=== PATIENT | female | born 1940 | race Caucasian/White ===

== ENCOUNTER → 2016-10-11 | Outpatient (CLI) | payer MEDICARE ==
--- NOTE | 2016-10-11 10:46 | US ---
EXAMINATION TYPE: US abdomen comp/pelvis limited DATE OF EXAM: 10/11/2016 10:13 AM COMPARISON: EXAMINATION TYPE: US abdomen comp/pelvis limited DATE OF EXAM: 10/11/2016 10:13 AM COMPARISON: NONE CLINICAL HISTORY: US. RLQ pain with hematuria EXAM MEASUREMENTS: Liver Length: 18.1 cm Gallbladder Wall: Surgically absent CBD: 0.3 cm Right Kidney: 10.5 x 4.6 x 5.8 cm Left Kidney: 10.3 x 5.3 x 5.4 cm Spleen 9.9 cm Post Void Volume: 18.9 ml ANATOMY: Pancreas: Poorly visualized. Liver: Portions visualized appear within normal limits Gallbladder: Surgically absent CBD: Appears within normal limits Right Kidney: Portions visualized appear within normal Left Kidney: Echogenic nonobstructing area possible kidney stone Spleen Portions visualized appear within normal limits Bladder: Appears within normal limits IVC: Portions visualized appear within normal Aorta: Portions visualized appear within normal Bilateral Jets Seen Yes, bilaterally Normal Post Void Residual (normal less than 50ml) 18.9 ml TECHNOLOGIST IMPRESSION: Liver measures upper limits of normal. The gallbladder is surgically absent . Echogenic area seen in the Left kidney probable kidney stone. IMPRESSION: 1. Status post cholecystectomy. 2. Probable nonobstructing, 5 mm left renal calculus. 3. Mild hepatomegaly. Normal Values: Liver Length: < 16cm wnl, 17-18cm upper limits, >18cm enlarged Renal Length = 9 - 12cm GB Wall: < 0.3cm CBD: < 0.6cm or < 1.0cm post cholecystectomy Bladder Wall: < 0.3cm
== END | disposition home or self-care (01) ==
LOC: RADUSWWP 09:04
PROVIDERS: ATTEND Family Medicine
DX: R16.0 Hepatomegaly, not elsewhere classified (principal); R31.9 Hematuria, unspecified; Z90.49 Acquired absence of other specified parts of digestive tract
CPT/HCPCS: 76700; 76857

== ENCOUNTER → 2016-11-15 | Outpatient (CLI) | payer MEDICARE ==
--- NOTE | 2016-11-16 11:11 | MM ---
Reason for exam: screening (asymptomatic). Last mammogram was performed 1 year and 2 months ago. History: Patient is postmenopausal and has history of breast cancer at age 68. Lumpectomy of the right breast, 2006. Radiation therapy of the right breast. Took tamoxifen for 5 years. Physical Findings: A clinical breast exam by your physician is recommended on an annual basis and results should be correlated with mammographic findings. MG 3D Screening Mammo W/Cad Bilateral CC and MLO view(s) were taken. Prior study comparison: September 15, 2015, mammogram, performed at [facility]. September 15, 2014, mammogram, performed at [facility]. There are scattered fibroglandular densities. Post surgical changes in the right breast lower inner quadrant. No significant changes when compared with prior studies. ASSESSMENT: Benign, BI-RAD 2 RECOMMENDATION: Routine screening mammogram of both breasts in 1 year.
== END | disposition home or self-care (01) ==
LOC: RADMAMWWP 12:33
PROVIDERS: ATTEND Family Medicine
DX: Z12.31 Encounter for screening mammogram for malignant neoplasm of breast (principal)
CPT/HCPCS: 77063; G0202

== ENCOUNTER → 2017-10-16 | Outpatient (CLI) | payer MEDICARE ==
--- NOTE | 2017-10-16 16:43 | CT ---
EXAMINATION TYPE: CT chest wo con DATE OF EXAM: 10/16/2017 COMPARISON: 09/19/2017 HISTORY: Abnormal findings of lung field CT DLP: 329.10 mGycm, Automated exposure control for dose reduction was used. CONTRAST: Performed injected with 0 mL of Omnipaque 350. TECHNIQUE: Axial images were obtained at 5 mm thick sections. Reconstructed images are reviewed on [employer] computer in the coronal plane. FINDINGS: Portion of the thyroid visualized is normal. There is a bilobed mass at the left apex measuring 1.4 x 0.8 cm in size. Series 4 image 13. Subtle gr oundglass opacities in the superior segment right lower lobe. Series 4 image 23. The subtle 0.3 cm no dule in the periphery of the left upper lobe is not as well-visualized on the current examination. Se yaritza 4 image 15. No enlarged mediastinal or hilar adenopathy is evident. The ascending aorta diameter at the level o f the main pulmonary artery is 3.3 cm. The main pulmonary artery diameter at the bifurcation is 2.3 cm. There is moderate coronary artery calcification. Limited CT sections are obtained through the upper abdomen. Abdomen is essentially unremarkable. IMPRESSIONS: 1. Bilobed nodular mass superior left upper lobe. Neoplasm is not excluded. Consider additional christin p with PET CT.
== END ==
LOC: RADCTMAIN 15:07
PROVIDERS: ATTEND Family Medicine
DX: R91.8 Other nonspecific abnormal finding of lung field (principal)
CPT/HCPCS: 71250

== ENCOUNTER → 2017-12-17 | Outpatient (CLI) | payer MEDICARE ==
--- NOTE | 2017-12-19 08:45 | MM ---
Reason for exam: screening (asymptomatic). Last mammogram was performed 1 year and 1 month ago. History: Patient is postmenopausal and has history of breast cancer at age 68. Lumpectomy of the right breast, 2006. Radiation therapy of the right breast. Took tamoxifen for 5 years. Physical Findings: A clinical breast exam by your physician is recommended on an annual basis and results should be correlated with mammographic findings. MG 3D Screening Mammo W/Cad Bilateral CC and MLO view(s) were taken. Prior study comparison: November 15, 2016, bilateral MG 3d screening mammo w/cad. September 15, 2015, mammogram, performed at [facility]. There are scattered fibroglandular densities. Post operative changes lower inner quadrant right breast. ASSESSMENT: Benign, BI-RAD 2 RECOMMENDATION: Routine screening mammogram of both breasts in 1 year.
== END | disposition home or self-care (01) ==
LOC: RADMAMWWP 12:26
PROVIDERS: ATTEND Family Medicine
DX: Z12.31 Encounter for screening mammogram for malignant neoplasm of breast (principal)
CPT/HCPCS: 77063; 77067

== ENCOUNTER → 2018-03-01 | Outpatient (CLI) | payer MEDICARE ==
[2018-03-01 10:19] LABS: Blood Urea Nitrogen 16 mg/dL (7-17)
--- NOTE | 2018-03-01 11:08 | CT ---
EXAMINATION TYPE: CT chest w con DATE OF EXAM: 03/01/2018 COMPARISON: 10/16/2017 CT chest dated 10/16/2017, low-dose CT thorax dated 09/19/2017 and PET/CT dated 11/10/2017 HISTORY: Solitary pulmonary nodule CT DLP: 374.70 mGycm. Automated Exposure Control for Dose Reduction was Utilized. TECHNIQUE: CT scan of the thorax is performed following with IV Contrast, patient injected with 100 ml mL of Isovue 300. FINDINGS: LUNGS: There is stability of the bilobed left upper lobe pulmonary nodule on series 4 image 14 measur ing 1.4 cm. This was demonstrated to be hypometabolic on the prior PET/CT of 11/10/2017. This is also o verall stable in size from the prior CT of 09/19/2017. A 3 mm solid pulmonary nodule in the anterior left upper lobe on series 4 image 15 is also stable. Additionally on the right the 2 mm pulmonary nod ule on image 19 is stable as is the groundglass opacity in the superior segment of the right upper lo be measuring approximately 6 mm on image 24. No new pulmonary nodules are identified. Probable area o f scarring or atelectasis is seen within the right middle lobe on series 4 image 41. The lungs are gr ossly clear, there is no concerning parenchymal mass or nodule identified. There is no pleural effu melissa or pneumothorax seen. The tracheobronchial tree is patent. MEDIASTINUM: There are no greater than 1 cm hilar or mediastinal lymph nodes. Moderate three-vessel c oronary calcifications are present. No pericardial effusion is seen. OTHER: There is diffuse low attenuation of the hepatic parenchyma most commonly related to hepatic st eatosis. Intrahepatic biliary ductal dilatation is seen although the gallbladder is not visualized an d may be surgically absent accounting for this finding. IMPRESSION: Stability of the nonhypermetabolic (prior PET/CT) bilateral pulmonary nodules in comparis on to exams dating back to 09/19/2017. Continued follow-up is recommended to ensure stability given t he 1.4 cm size of the left upper lobe pulmonary nodule. Follow-up CT is recommended in 6 months. No n ew pulmonary nodules or mediastinal adenopathy.
== END | disposition home or self-care (01) ==
LOC: RADCTMAIN 09:34
PROVIDERS: ATTEND Internal Medicine Critical Care Medicine
DX: R91.8 Other nonspecific abnormal finding of lung field (principal)
CPT/HCPCS: 82565; 84520; 71260; 36415; Q9967

== ENCOUNTER 2018-06-25 19:19 | Emergency (ER) | payer OTHER, MEDICARE ==
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
[2018-06-25 20:44] LABS: Partial Thromboplastin Time 23.5 sec (22.0-30.0); Prothrombin Time 10.2 sec (9.0-12.0)
[2018-06-25 20:48] LABS: Basophils % (A) 1 %; Eosinophils # (A) 0.1 k/uL (0-0.7); Eosinophils % (A) 3 %; HCT 37.2 % (34.0-46.0); HGB 12.5 gm/dL (11.4-16.0); Lymphocytes # (A) 2.1 k/uL (1.0-4.8); Lymphocytes % (A) 44 %; MCH 32.5 pg (25.0-35.0); MCHC 33.7 g/dL (31.0-37.0); MCV 96.5 fL (80.0-100.0); Mean Platelet Volume 7.1; Monocytes # (A) 0.3 k/uL (0-1.0); Monocytes % (A) 6 %; Neutrophils % (A) 43 %; Platelet Count 159 k/uL (150-450); RBC 3.85 m/uL (3.80-5.40); RDW 12.9 % (11.5-15.5); WBC 4.7 k/uL (3.8-10.6)
[2018-06-25 20:49] LABS: AST 98 U/L (14-36); Albumin 4.2 g/dL (3.5-5.0); Blood Urea Nitrogen 14 mg/dL (7-17); Creatine Kinase 103 U/L (30-135); Glucose 122 mg/dL (74-99); Magnesium 1.7 mg/dL (1.6-2.3); Total Bilirubin 0.3 mg/dL (0.2-1.3); Total Protein 7.7 g/dL (6.3-8.2)
[2018-06-25 21:00] LABS: ALT 70 U/L (9-52); Alkaline Phosphatase 34 U/L (38-126); Anion Gap 9 mmol/L; Calcium 9.8 mg/dL (8.4-10.2); Carbon Dioxide 29 mmol/L (22-30); Chloride 105 mmol/L (98-107); Potassium 3.9 mmol/L (3.5-5.1); Sodium 143 mmol/L (137-145)
[2018-06-25 21:02] LABS: Creatine Kinase MB 1.1 ng/mL (0.0-2.4); Troponin I <0.012 ng/mL (0.000-0.034)
[2018-06-25 21:14] VITALS: RESP 20
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
[2018-06-25 22:11] VITALS: BP 138/62; PULSE 82; TEMP 98.3
== END 2018-06-25 22:10 | disposition home or self-care (01) ==
LOC: EC 19:19
DX: S20.02XA Contusion of left breast, initial encounter (principal); S20.212A Contusion of left front wall of thorax, initial encounter; R10.11 Right upper quadrant pain; R11.0 Nausea; E11.9 Type 2 diabetes mellitus without complications; Z87.891 Personal history of nicotine dependence; Z90.49 Acquired absence of other specified parts of digestive tract; Z90.710 Acquired absence of both cervix and uterus; Z98.890 Other specified postprocedural states; Z79.84 Long term (current) use of oral hypoglycemic drugs; Z79.899 Other long term (current) drug therapy; Z88.1 Allergy status to other antibiotic agents; Z88.5 Allergy status to narcotic agent; V43.62XA Car passenger injured in collision with other type car in traffic accident, initial encounter; Y92.410 Unspecified street and highway as the place of occurrence of the external cause
CPT/HCPCS: 36415; 93005; 80053; 82550; 82553; 83735; 84484; 85025; 85610; 85730; 71046; 71260; 74177; 99284; Q9967

== ENCOUNTER 2018-10-04 07:04 | Day surgery (SDC) | payer MEDICARE ==
[2018-10-02 15:37] VITALS: BMI 32.9
[~2018-10-04 07:04] MED LIST: LACTATED RINGERS 1,000 ML IV SCH; LIDOCAINE 1% 20 ML VIAL (10MG/ML) FOR IV START INTRADERMA PRN
[2018-10-04 07:19] VITALS: RESP 18; TEMP 98.2
[2018-10-04 07:39] LABS: Glucose,Whole Blood 139 mg/dL (75-99)
[2018-10-04] MEDS ORDERED: PROPOFOL 10 MG/ML 20 ML VIAL IV ONE (07:58)
--- NOTE | 2018-10-04 08:21 | P.PCN ---
Date of Procedure: 10/04/18 Procedure(s) Performed: BRIEF HISTORY: Patient is a 78-year-old pleasant white female, scheduled for an elective colonoscopy as a part of variation of prior history of colon polyps. Last endoscopy was 4 years ago. PROCEDURE PERFORMED: Colonoscopy with snare polypectomy. PREOPERATIVE DIAGNOSIS: History of colon polyps. IV sedation per Anesthesia. PROCEDURE: After informed consent was obtained, the patient, was brought into the endoscopy unit. IV sedation was administered by Anesthesia under continuous monitoring. Digital rectal examination was normal. Initially the Olympus CF- 160 flexible video colonoscope was then inserted in the rectum, gradually advanced into the cecum without any difficulty. Careful examination was performed as the scope was gradually being withdrawn. Ileocecal valve and the appendiceal orifice were visualized and appeared normal. Prep was excellent. Mucosa of the cecum, appeared normal. In the ascending colon there was a 5-6 mm sessile polyp that was removed by snare polypectomy. In the proximal transverse colon there was a 1 cm polyp removed by snare polypectomy. Rest of the ascending colon, transverse colon, descending colon, sigmoid colon, and rectum appeared normal. Scattered sigmoid diverticulosis seen. Retroflexion was performed in the rectum and no lesions were seen. The patient tolerated the procedure well. IMPRESSION: 5-6 mm sessile colon polyp serous was snare polypectomy 1 cm proximal transverse colon polyp status post polypectomy Scattered sigmoid diverticulosis RECOMMENDATIONS: Findings of this examination were discussed with the patient as well as her family. She was advised to follow with the biopsy results. If the biopsy shows adenoma, she can have a repeat colonoscopy in the.
[2018-10-04 08:39] VITALS: BP 150/79; PULSE 78
== END 2018-10-04 09:00 | disposition home or self-care (01) ==
LOC: ORWHC2ENDO 07:04
PROVIDERS: ATTEND Internal Medicine Gastroenterology
DX: Z12.11 Encounter for screening for malignant neoplasm of colon (principal); D12.2 Benign neoplasm of ascending colon; D12.3 Benign neoplasm of transverse colon; K57.30 Diverticulosis of large intestine without perforation or abscess without bleeding; K21.9 Gastro-esophageal reflux disease without esophagitis; E11.9 Type 2 diabetes mellitus without complications; E07.9 Disorder of thyroid, unspecified; Z86.010 Personal history of colon polyps; Z88.5 Allergy status to narcotic agent; Z88.1 Allergy status to other antibiotic agents; Z91.048 Other nonmedicinal substance allergy status; Z79.890 Hormone replacement therapy; Z79.899 Other long term (current) drug therapy; Z79.84 Long term (current) use of oral hypoglycemic drugs
CPT/HCPCS: 88305; 45385; J2704

== ENCOUNTER → 2018-12-13 | Outpatient (CLI) | payer MEDICARE ==
--- NOTE | 2018-12-13 11:45 | CT ---
EXAMINATION TYPE: CT chest w con DATE OF EXAM: 12/13/2018 COMPARISON: 06/25/2018 on 03/01/2018 HISTORY: Follow up lung nodules. CT DLP: 382.7 mGycm. Automated Exposure Control for Dose Reduction was Utilized. TECHNIQUE: CT scan of the thorax is performed following with IV Contrast, patient injected with 100 mL of Isovue M300. FINDINGS: LUNGS: There is similar size of the approximately 1.5 x 1.0 cm bilobed left upper lobe pulmonary nodu le on series 4 image 16 in comparison the prior of 06/25/2018. This was also demonstrated to be stable on the exam of 03/01/2018 and hypometabolic on a prior PET/CT of 11/10/2017. This is similar size datin g back to 09/19/2017. A 3 mm subcentimeter solid pulmonary nodule on series 4 image 19 is also stable. Round glass opacity in the superior segment of the right lower lobe is unchanged on series 4 image 24. 2 to 3 mm right up per lobe pulmonary nodule on image 20 is unchanged. There is a new 3 mm pulmonary nodule within the right lower lobe along the interlobar fissure on seri es 4 image 36 with surrounding groundglass density. No additional new nodules are seen. No focal consolidation, pleural effusion or pneumothorax. The tra cheobronchial tree is patent. MEDIASTINUM: There are no greater than 1 cm hilar or mediastinal lymph nodes. No pericardial effusi on is seen. Severe coronary artery calcifications are present. OTHER: Hepatic steatosis is demonstrated in the upper abdomen as well as hepatomegaly. Common bile du ct dilatation may relate to surgical absence of the gallbladder. This is unchanged from the prior. Pu nctate calcification along the right adrenal gland is likely from prior injury. No associated mass. M ultilevel moderate degenerative changes of the spine are noted. IMPRESSION: 1. New right lower lobe pulmonary nodule with the solid component measuring only 3 mm. This is too sm all for PET CT or biopsy and therefore short-term follow-up is recommended in 3 months given the surr ounding groundglass opacity. 2. Left upper lobe bilobed PET hypometabolic approximately 1.5 cm pulmonary nodule is similar in size on multiple exams dating back to 09/19/2017 and therefore favored to be benign however continued fol low-up is recommended to ensure long-term stability. 3. Stability of the additional subcentimeter pulmonary nodules and redemonstration of hepatic steatos is.
== END | disposition home or self-care (01) ==
LOC: RADCTMAIN 10:19
PROVIDERS: ATTEND Family Medicine
DX: R91.8 Other nonspecific abnormal finding of lung field (principal)
CPT/HCPCS: 71260; Q9967

== ENCOUNTER → 2019-03-17 | Outpatient (CLI) | payer MEDICARE ==
--- NOTE | 2019-03-18 13:42 | MM ---
Reason for exam: screening (asymptomatic). Last mammogram was performed 1 year and 3 months ago. History: Patient is postmenopausal and has history of breast cancer at age 68. Lumpectomy of the right breast, 2006. Radiation therapy of the right breast. Took tamoxifen for 5 years. Physical Findings: A clinical breast exam by your physician is recommended on an annual basis and results should be correlated with mammographic findings. MG 3D Screening Mammo W/Cad Bilateral CC and MLO view(s) were taken. Prior study comparison: December 17, 2017, bilateral MG 3d screening mammo w/cad. November 15, 2016, bilateral MG 3d screening mammo w/cad. There are scattered fibroglandular densities. Benign appearing bilateral calcifications. No suspicious abnormality. Post surgical change on the right. No significant changes when compared with prior studies. ASSESSMENT: Benign, BI-RAD 2 RECOMMENDATION: Routine screening mammogram of both breasts in 1 year.
== END | disposition home or self-care (01) ==
LOC: RADMAMWWP 10:54
PROVIDERS: ATTEND Family Medicine
DX: Z12.31 Encounter for screening mammogram for malignant neoplasm of breast (principal)
CPT/HCPCS: 77063; 77067

== ENCOUNTER → 2019-03-17 | Outpatient (CLI) | payer MEDICARE ==
--- NOTE | 2019-03-17 11:41 | CT ---
EXAMINATION TYPE: CT chest wo con DATE OF EXAM: 03/17/2019 COMPARISON: CT chest dated the HISTORY: Multiple lung nodules CT DLP: 374.6 mGycm. Automated Exposure Control for Dose Reduction was Utilized. TECHNIQUE: CT scan of the thorax is performed without IV contrast. FINDINGS: LUNGS: The lungs are clear there is no evidence of pneumothorax or pleural effusion. No focal pneumonia. Leida ear changes involving the superior segment of the right lower lobe appears to be related to scar or a telectasis. Nodules: Stable 1.5 x 1 cm bilobed left upper lobe pulmonary nodule. Stable 3 mm pulmonary nodule right lower lobe. Previously noted 3 mm right lower lobe pulmonary nodule along the interlobar fissure not definitively seen on today's exam. MEDIASTINUM: Lack of IV contrast is noted to limit evaluation for mediastinal and especially hilar ad enopathy. There are no definitive greater than 1 cm hilar or mediastinal lymph nodes. No cardiomega ly or pericardial effusion is seen. Atherosclerotic change of the aorta and dense coronary artery adan cified cage noted. OTHER: Hypertrophic and degenerative change of the spine noted. Correlate for hepatic steatosis. IMPRESSION: 1. Stable bilateral pulmonary nodules unchanged from the prior exam. 2. 3 mm nodule in the right lower lobe near the interlobar fissure is not seen on today's exam 3. Dense coronary artery calcification correlate clinically.
== END | disposition home or self-care (01) ==
LOC: RADCTMAIN 10:30
PROVIDERS: ATTEND Nurse Practitioner Adult Health
DX: I25.10 Atherosclerotic heart disease of native coronary artery without angina pectoris (principal); R91.8 Other nonspecific abnormal finding of lung field
CPT/HCPCS: 71250

== ENCOUNTER → 2020-06-01 | Outpatient (CLI) | payer MEDICARE ==
--- NOTE | 2020-06-02 09:25 | MM ---
Reason for exam: screening (asymptomatic). Last mammogram was performed 1 year and 2 months ago. History: Patient is postmenopausal and has history of breast cancer at age 68. Lumpectomy of the right breast, 2006. Radiation therapy of the right breast. Took tamoxifen for 5 years. Physical Findings: A clinical breast exam by your physician is recommended on an annual basis and results should be correlated with mammographic findings. MG 3D Screening Mammo W/Cad Bilateral CC and MLO view(s) were taken. Prior study comparison: March 17, 2019, bilateral MG 3d screening mammo w/cad. December 17, 2017, bilateral MG 3d screening mammo w/cad. The breast tissue is heterogeneously dense. This may lower the sensitivity of mammography. Stable lumpectomy changes right breast. No significant changes when compared with prior studies. ASSESSMENT: Benign, BI-RAD 2 RECOMMENDATION: Routine screening mammogram of both breasts in 1 year.
== END | disposition home or self-care (01) ==
LOC: RADMAMWWP 11:14
PROVIDERS: ATTEND Family Medicine
DX: Z12.31 Encounter for screening mammogram for malignant neoplasm of breast (principal)
CPT/HCPCS: 77063; 77067

== ENCOUNTER → 2020-07-28 | Outpatient (CLI) | payer MEDICARE ==
--- NOTE | 2020-07-28 08:07 | CT ---
EXAMINATION TYPE: CT chest wo con DATE OF EXAM: 07/28/2020 COMPARISON: Prior chest CT March 17, 2019 and older CTs. PET/CT November 10, 2017 HISTORY: Lung Nodules CT DLP: 320.4 mGycm. Automated Exposure Control for Dose Reduction was Utilized. TECHNIQUE: CT scan of the thorax is performed without IV contrast. FINDINGS: LUNGS: Low dense lobulated left upper lobe nodule appears larger on current study measuring 2.0 x 1.1 cm axial image 12 versus prior exams. Stable 9 mm focus of groundglass opacity superior right lower lobe axial image 29 from multiple prior studies. No new greater than 4 mm pulmonary nodules or masses . No pleural effusion or pneumothorax seen. MEDIASTINUM: Lack of IV contrast is noted to limit evaluation for mediastinal and especially hilar ad enopathy. There are no definitive new greater than 1 cm hilar or mediastinal lymph nodes. No cardio megaly or pericardial effusion is seen. Moderate to severe coronary artery calcification redemonstrat ed. Calcification level of the aortic valve and root redemonstrated. Bovine type arch again seen whic h is normal variant. Moderate calcified plaque descending aorta extending into abdominal aorta redemo nstrated. OTHER: Cholecystectomy clips redemonstrated. Visualized liver hypodense relative to spleen consistent with diffuse fatty infiltration. Moderate to severe multilevel spurring of the thoracic spine. Stabl e suspected scarring medially right breast near axial image 25. IMPRESSION: Enlarging 2.0 x 1.1 cm left upper lobe bilobed or lobulated nodule. Advise repeat PET/CT to further evaluate.
== END | disposition home or self-care (01) ==
LOC: RADCTMAIN 06:49
PROVIDERS: ATTEND Family Medicine
DX: R91.8 Other nonspecific abnormal finding of lung field (principal)
CPT/HCPCS: 71250

== ENCOUNTER → 2020-08-27 | Outpatient (CLI) | payer MEDICARE ==
--- NOTE | 2020-08-28 09:35 | PE ---
Nuclear medicine PET/CT HISTORY: Pulmonary nodule, right breast carcinoma subsequent Patient received 13.4 mCi F-18 FDG intravenously in delayed scanning was performed from the skull bas e to the mid thighs. Localization and attenuation correction CT scan was performed. Correlation to prior nuclear medicine PET/CT 11/10/2017, CT scan 07/28/2020 and 06/25/2018 Chest and neck: The left upper lobe hourglass configuration soft tissue mass which is demonstrated so me interval growth is again noted. No suspicious uptake is identified however. There is no mediastina l, axillar, or hilar adenopathy. There are coronary artery calcifications present. No pleural or ratur cardial effusion. ABDOMEN: No suspicious uptake. There is no evident liver mass or suspicious uptake. No retroperitonea l adenopathy. There is no ascites. Bowel uptake is felt likely to be physiologic. Osseous structures show no suspicious uptake. IMPRESSION: There is some slight interval growth of patient's left upper lobe lung mass. No suspiciou s uptake however.
== END | disposition home or self-care (01) ==
LOC: RADPETMAIN 09:57
PROVIDERS: ATTEND Family Medicine
DX: R91.8 Other nonspecific abnormal finding of lung field (principal)
CPT/HCPCS: 78815; A9552

== ENCOUNTER → 2021-06-29 | Outpatient (CLI) | payer MEDICARE ==
--- NOTE | 2021-06-29 15:28 | CT ---
EXAMINATION TYPE: CT abdomen pelvis wo con DATE OF EXAM: 06/29/2021 HISTORY: Diarrhea CT DLP: 818 mGycm. Automated Exposure Control for Dose Reduction was Utilized. TECHNIQUE: CT scan of the abdomen and pelvis is performed without oral or IV contrast. COMPARISON: CT June 25, 2018. PET CT August 27, 2020. FINDINGS: Within the limitations of a non-contrast study, the following observations are made. LUNG BASES: No significant abnormality is appreciated. LIVER/GB: Stable small calcification region of azra hepatis axial image 20. Heterogeneity of the wilder er was slightly lobulated peripheral contour raising concern for possible underlying cirrhosis, corre late clinically. Gallbladder surgically absent. No biliary dilatation noted currently. Liver overall normal in size. No ascites noted. PANCREAS: No significant abnormality is seen. SPLEEN: No significant abnormality is seen. ADRENALS: Small calcification in region of right adrenal gland redemonstrated. KIDNEYS: No renal stones or hydronephrosis. Exophytic 1.0 cm thin-walled cyst right kidney laterally midpole level axial image 31 redemonstrated. BOWEL: Diverticula in the left and sigmoid colon. No CT evidence for acute diverticulitis. No suspici ous small or large bowel dilatation GENITAL ORGANS: Uterus surgically absent. LYMPH NODES: No greater than 1cm abdominal or pelvic lymph nodes are appreciated. OSSEOUS STRUCTURES: Moderate 2 borderline severe axial joint space loss both hips. Swzx-[id number] m ultilevel spurring in the thoracolumbar spine. OTHER: Moderate to severe calcified plaque of the aorta extends into branch vessels. IMPRESSION: The source of patient's diarrhea not identified on noncontrast CT. Distal colonic diverti culosis without CT evidence for acute diverticulitis. Possible cirrhosis of liver, correlate clinical ly.
== END | disposition home or self-care (01) ==
LOC: RADCTMAIN 14:46
PROVIDERS: ATTEND Nurse Practitioner Adult Health
DX: K57.30 Diverticulosis of large intestine without perforation or abscess without bleeding (principal)
CPT/HCPCS: 74176

== ENCOUNTER → 2021-07-07 | Outpatient (CLI) | payer MEDICARE ==
--- NOTE | 2021-07-08 07:52 | ECHOF ---
Referral Reason:R01.1 Cardiac murmur MEASUREMENTS -------- HEIGHT: 157.5 cm WEIGHT: 76.2 kg BP: RVIDd: 2.5 cm (< 3.3) IVSd: 1.3 cm (0.6 - 1.1) LVIDd: 3.3 cm (3.9 - 5.3) LVPWd: 1.3 cm (0.6 - 1.1) IVSs: 1.5 cm LVIDs: 1.7 cm LVPWs: 2.0 cm LAESV Index (A-L): 13.92 ml/m Ao Diam: 2.5 cm (2.0 - 3.7) AV Cusp: 1.1 cm (1.5 - 2.6) LA Diam: 3.2 cm (2.7 - 3.8) MV EXCURSION: 13.362 mm (> 18.000) MV EF SLOPE: 30 mm/s (70 - 150) EPSS: 0.2 cm MV E Monroe: 0.64 m/s MV DecT: 280 ms MV A Monroe: 1.08 m/s MV E/A Ratio: 0.59 AV maxP.25 mmHg AV meanP.95 mmHg RAP: 5.00 mmHg RVSP: 25.06 mmHg FINDINGS -------- Sinus rhythm. This was a technically adequate study. The left ventricular size is normal. There is mild concentric left ventricular hypertrophy. Overa ll left ventricular systolic function is normal with, an EF between 55 - 60 %. The right ventricle is normal in size. Normal LA size by volume 22+/-6 ml/m2. The right atrial size is normal. Interatrial and interventricular septum intact. There is no evidence of aortic regurgitation. There is mild aortic stenosis present. Peak/mean gr adient across the Aortic Valve is 23.25mmHg / 14.95mmHg. There is trace mitral regurgitation. Mild tricuspid regurgitation present. There is no evidence of pulmonary hypertension. The right v entricular systolic pressure, as measured by Doppler, is 25.06mmHg. There is no pulmonic regurgitation present. The aortic root size is normal. IVC Not well visulized. There is no pericardial effusion. CONCLUSIONS -------- 1. The left ventricular size is normal. 2. There is mild concentric left ventricular hypertrophy. 3. Overall left ventricular systolic function is normal with, an EF between 55 - 60 %. 4. There is mild aortic stenosis present. 5. Peak/mean gradient across the Aortic Valve is 23.25mmHg / 14.95mmHg. 6. There is trace mitral regurgitation. 7. Mild tricuspid regurgitation present. DUST HANDLER: Maryellen Posada RDCS
== END | disposition home or self-care (01) ==
LOC: RADECHMAIN 14:33
PROVIDERS: ATTEND Family Medicine
DX: I08.3 Combined rheumatic disorders of mitral, aortic and tricuspid valves (principal)
CPT/HCPCS: 93306

== ENCOUNTER → 2021-07-26 | Outpatient (CLI) | payer MEDICARE ==
--- NOTE | 2021-07-27 10:23 | MM ---
Reason for exam: screening (asymptomatic). Last mammogram was performed 1 year and 2 months ago. History: Patient is postmenopausal and has history of breast cancer at age 68. Lumpectomy of the right breast, 2006. Radiation therapy of the right breast. Took tamoxifen for 5 years. Physical Findings: A clinical breast exam by your physician is recommended on an annual basis and results should be correlated with mammographic findings. MG 3D Screening Mammo W/Cad Bilateral CC and MLO view(s) were taken. Prior study comparison: June 01, 2020, bilateral MG 3d screening mammo w/cad. March 17, 2019, bilateral MG 3d screening mammo w/cad. There are scattered fibroglandular densities. Benign appearing bilateral calcifications. There is chronic nodularity in the left breast. No significant changes when compared with prior studies. ASSESSMENT: Benign, BI-RAD 2 RECOMMENDATION: Routine screening mammogram of both breasts in 1 year.
== END | disposition home or self-care (01) ==
LOC: RADMAMWWP 10:36
PROVIDERS: ATTEND Family Medicine
DX: Z12.31 Encounter for screening mammogram for malignant neoplasm of breast (principal)
CPT/HCPCS: 77063; 77067

== ENCOUNTER → 2022-02-03 | Outpatient (CLI) | payer MEDICARE ==
--- NOTE | 2022-02-03 10:34 | US ---
EXAMINATION TYPE: US liver DATE OF EXAM: 02/03/2022 COMPARISON: CT abdomen and pelvis June 29, 2021 CLINICAL HISTORY: K74.60 UNSPECIFIED CIRRHOSIS OF LIVER. cirrhosis gallbladder removed. EXAM MEASUREMENTS: Liver Length: 16.7 cm Gallbladder Wall: Surgically absent cm CBD: 1.2 cm Right Kidney: 10.1 x 4.1 x 4.5 cm Pancreas: Duct visualized Liver: Increased attenuation Gallbladder: Surgically absent Evidence for sonographic Lopez's sign: No CBD: Dilated Right Kidney: Exophytic simple appearing cyst 1.5 x .9 x 1.3 cm. Visualized liver is heterogeneously hyperechoic but normal in size. Evaluation for focal masses is moore boptimal due to the heterogeneity. No surrounding ascites. Gallbladder surgically absent. There is ne w mild extrahepatic biliary dilatation from prior CT of the azra hepatis IMPRESSION: Underlying hepatocellular disease is confirmed or suspected when correlating with CT. Pos sible new mild extra hepatic biliary dilatation. Consider follow-up ERCP or MRCP imaging based on wilder er lab values and clinical correlation.
== END | disposition home or self-care (01) ==
LOC: RADUSWWP 09:31
PROVIDERS: ATTEND Internal Medicine Gastroenterology
DX: K74.60 Unspecified cirrhosis of liver (principal)
CPT/HCPCS: 76705

== ENCOUNTER 2022-02-28 06:51 | Day surgery (SDC) | payer MEDICARE ==
[~2022-02-28 06:51] MED LIST changes: +LIDOCAINE 1% (10MG/ML) FOR IV START INTRADERMA PRN; -LIDOCAINE 1% 20 ML VIAL (10MG/ML) FOR IV START INTRADERMA PRN
[2022-02-28 07:50] LABS: Glucose,Whole Blood 184 mg/dL (75-99)
[2022-02-28 07:58] VITALS: TEMP 98.1
[2022-02-28] MEDS ORDERED: PROPOFOL 10 MG/ML 20 ML VIAL IV ONE (08:09)
--- NOTE | 2022-02-28 08:35 | P.PCN ---
Date of Procedure: 02/28/22 Procedure(s) Performed: BRIEF HISTORY: Patient is a 81-year-old pleasant female scheduled for an elective colonoscopy as a part of screening for colon cancer and family history of colon cancer. Her mother and sister with was diagnosed with colon cancer at age 60 and 80 respectively. PROCEDURE PERFORMED: Colonoscopy with snare polypectomy. PREOPERATIVE DIAGNOSIS: Screening for colon cancer and family history of colon cancer. IV sedation per Anesthesia. PROCEDURE: After informed consent was obtained, the patient, was brought into the endoscopy unit. IV sedation was administered by Anesthesia under continuous monitoring. Digital rectal examination was normal. Initially the Olympus CF-160 flexible video colonoscope was then inserted in the rectum, gradually advanced into the cecum without any difficulty. Careful examination was performed as the scope was gradually being withdrawn. Ileocecal valve and the appendiceal orifice were visualized and appeared normal. Prep was excellent. Mucosa of the cecum, appeared normal. Ascending colon there was a 5 mm polyp removed by snare polypectomy. Rest of the ascending colon, transverse colon, appeared normal. The descending colon there was a 6 mm polyp removed by snare polypectomy. Rest of the descending colon, sigmoid colon, and rectum appeared normal. Scattered left sided diverticulosis seen. Retroflexion was performed in the rectum and no lesions were seen. The patient tolerated the procedure well. IMPRESSION: 5 mm ascending colon polyp status post polypectomy 6 mm reasoning colon polyp status post snare polypectomy and scattered sigmoid diverticula Sigmoid Diverticulosis RECOMMENDATIONS: Findings of this examination were discussed with the patientas well as her family. She was advised to follow with the biopsy results. If the biopsies adenoma she can have a repeat colonoscopy in 3 years based on her overall medical condition].
[2022-02-28 08:53] VITALS: BP 144/80; PULSE 76; RESP 16
== END 2022-02-28 09:15 | disposition home or self-care (01) ==
LOC: ORWHC2ENDO 06:51
PROVIDERS: ATTEND Internal Medicine Gastroenterology
DX: Z12.11 Encounter for screening for malignant neoplasm of colon (principal); K57.30 Diverticulosis of large intestine without perforation or abscess without bleeding; D12.4 Benign neoplasm of descending colon; Z80.0 Family history of malignant neoplasm of digestive organs
CPT/HCPCS: 45385; 88305; J2704

== ENCOUNTER → 2022-08-08 | Outpatient (CLI) | payer MEDICARE ==
--- NOTE | 2022-08-09 08:16 | MM ---
Reason for Exam: Screening (asymptomatic). Last mammogram was performed 1 year(s) and 1 month(s) ago. Patient History: Menarche at age 10. First Full-Term at age 21. Left ovary removed at age 52. Right ovary removed at age 52. Hysterectomy at age 52. Postmenopausal. Breast cancer, right, age 68. Patient used Tamoxifen for 5 years. 2006, Lumpectomy on the Right side. Radiation Therapy, right. Prior Study Comparison: 03/17/2019 Bilateral Screening Mammogram, [facility]. 06/01/2020 Bilateral Screening Mammogram, [facility]. 07/26/2021 Bilateral Screening Mammogram, [facility]. Tissue Density: There are scattered fibroglandular densities. Findings: Analyzed By CAD. There is no suspicious group of microcalcifications or new suspicious mass in either breast. Overall Assessment: Benign, BI-RAD 2 Management: Screening Mammogram of both breasts in 1 year. A clinical breast exam by your physician is recommended on an annual basis and results should be correlated with mammographic findings. Electronically signed and approved by: Sachin Singleton M.D. Radiologis
== END | disposition home or self-care (01) ==
LOC: RADMAMWWP 13:33
PROVIDERS: ATTEND Family Medicine
DX: Z12.31 Encounter for screening mammogram for malignant neoplasm of breast (principal); Z78.0 Asymptomatic menopausal state; Z90.721 Acquired absence of ovaries, unilateral
CPT/HCPCS: 77063; 77067

== ENCOUNTER → 2023-01-26 | Outpatient (CLI) | payer MEDICARE ==
[2023-01-26 19:33] LABS: T4, Free (Free Thyroxine) 1.08 ng/dL (0.800-1.800)
[2023-01-26 19:41] LABS: Thyroid Peroxidase Antibodies 18.6 U/mL (0.0-33.0)
[2023-01-26 20:37] LABS: HCT 38.9 % (37.2-46.3); HGB 12.8 g/dL (12.0-15.0); MCH 32.2 pg (27.0-32.0); MCHC 32.9 g/dL (32.0-37.0); Mean Platelet Volume 10.7 fL (9.5-12.2); NRBC Per 100 WBC 0 /100 WBCS (0.0-0.0); Platelet Count 190 X 10*3/uL (140-440); RBC 3.97 X 10*6/uL (4.10-5.20); RDW 12.7 % (11.5-14.5); WBC 6.53 X 10*3/uL (4.50-10.00)
== END | disposition home or self-care (01) ==
LOC: LABWHC1 13:43
PROVIDERS: ATTEND Internal Medicine Endocrinology, Diabetes & Metabolism
DX: L65.9 Nonscarring hair loss, unspecified (principal)
CPT/HCPCS: 36415; 84439; 84443; 84480; 85027; 86376

== ENCOUNTER → 2023-02-21 | Outpatient (CLI) | payer MEDICARE ==
--- NOTE | 2023-02-22 10:18 | CT ---
EXAMINATION TYPE: CT chest wo con DATE OF EXAM: 02/21/2023 COMPARISON: 07/28/2020 HISTORY: Lung nodules CT DLP: 331.6 mGycm. Automated Exposure Control for Dose Reduction was Utilized. TECHNIQUE: CT scan of the thorax is performed without IV contrast. FINDINGS: LUNGS: There is a lobulated pulmonary nodule measuring 2.2 x 1.6 x 2.1 cm and previously measuring 2 x 1.1 c m. Appears to be increased in size from prior exam. There is an adjacent nodule seen on axial image 1 3 measuring 3 mm. A millimeter groundglass density seen in the right lower lobe superior segment appear stable measurin g 8 mm.. There is no pleural effusion or pneumothorax seen. The tracheobronchial tree is patent. MEDIASTINUM: Lack of IV contrast is noted to limit evaluation for mediastinal and especially hilar ad enopathy. There are no definitive greater than 1 cm hilar or mediastinal lymph nodes. No cardiomega ly or pericardial effusion is seen. Moderate to severe coronary artery calcification redemonstrated. Calcification level of the aortic valve and root redemonstrated. Bovine type arch again seen which is normal variant. Moderate calcified plaque descending aorta extending into abdominal aorta redemonstr ated. OTHER: Cholecystectomy clips redemonstrated. Visualized liver hypodense relative to spleen consisten t with diffuse fatty infiltration. Moderate to severe multilevel spurring of the thoracic spine. Smal l hiatal hernia. Stable density along the medial margin of the right breast could represent scar as p reviously suggested. Unchanged from 2020. IMPRESSION: 1. There is an increase in size of the left upper lobe lobulated nodule now measuring 2.2 x 1.6 cm an d previously measuring 2 x 1.1 cm. Noticeable increase in the width of the nodule is seen. Recommend a contrast exam to determine if this is a pulmonary nodule and exclude the possibility of a vascular lesion. PET scan also suggested. 2. Stable 8 mm nodule superior segment round glass appearance right lower lobe 3. Dense coronary artery atherosclerotic changes.
== END | disposition home or self-care (01) ==
LOC: RADCTMAIN 14:48
PROVIDERS: ATTEND Family Medicine
DX: I25.10 Atherosclerotic heart disease of native coronary artery without angina pectoris (principal); R91.8 Other nonspecific abnormal finding of lung field
CPT/HCPCS: 71250

== ENCOUNTER → 2023-03-16 | Outpatient (CLI) | payer MEDICARE ==
--- NOTE | 2023-03-16 13:29 | PE ---
EXAMINATION TYPE: PET CT fusion skull to thigh DATE OF EXAM: 03/16/2023 CLINICAL INDICATION:Female, 82 years old with history of R91.8; TECHNIQUE: Following the intravenous administration of 11.9 mCi of F-18 FDG, whole body images are performed from the skull base to the midthigh. Images are reviewed on the computer in the coronal, a xial, and sagittal planes. Reconstructed rotating images are created on independent workstation and reviewed on the computer. A non-contrast CT is performed in conjunction with the PET scan. Glucose level 145 mg/dL COMPARISON: CT 02/21/2023, CT chest 07/28/2020, PET/CT 08/27/2020, FINDINGS: Mediastinal SUV mean is 2.0. Hepatic parenchyma SUV mean is 2.6. SKULL BASE AND NECK: No suspicious radiotracer activity. CHEST, MEDIASTINUM, AND HILAR REGION: * Left upper lobe nodules measuring 2.3 x 1.7 cm Max SUV 1.1. There may be a opacified bronchus exte nding into this lesion. * Groundglass opacity within the superior segment of the right lower lobe without increased metaboli c activity. Next SUV 0.5. * Right lower quadrant peripheral pulmonary nodule measuring 6 mm Max SUV 1.0. ABDOMEN AND PELVIS: No suspicious radiotracer activity. OSSEOUS STRUCTURES: No suspicious radiotracer activity. OTHER CT: Bilaterally aphakia. Atherosclerosis at the carotid bifurcations. Degeneration changes of t he shoulders. Atherosclerosis of the coronary arteries and aortic valve leaflets. Scattered colonic d iverticula. Right renal cyst. Left renal vascular calcification in the renal sinus. IMPRESSION: 1. Increasing size of left upper lobe pulmonary nodule measuring up to 2.3 x 1.7 cm previously 1.9 x 1.1 cm in 2020. This does not demonstrate elevated FDG activity above background levels. There may b e a opacified bronchus extending into this region. Consider further evaluation with bronchoscopy and tissue sampling or at a minimum surveillance with CT is recommended. Findings could represent a hypom etabolic neoplasm which could represent bronchoalveolar versus others etiology such as pulmonary carc inoid. Ultimately tissue sampling is recommended. 2. Right lower lobe peripheral 6 mm pulmonary nodule should be reassessed on follow-up CT in abdomen from 3-6 months.
== END | disposition home or self-care (01) ==
LOC: RADPETMAIN 06:50
PROVIDERS: ATTEND Nurse Practitioner Adult Health
DX: R91.8 Other nonspecific abnormal finding of lung field (principal)
CPT/HCPCS: 78815; A9552

== ENCOUNTER 2023-05-10 10:50 | Day surgery (SDC) | payer MEDICARE ==
[2023-05-04 10:21] VITALS: BMI 31.7
[~2023-05-10 10:50] MED LIST changes: -LIDOCAINE 1% (10MG/ML) FOR IV START INTRADERMA PRN
--- NOTE | 2023-05-10 11:55 | CT ---
EXAMINATION TYPE: CT Chest carie Bar Protocol DATE OF EXAM: 05/10/2023 COMPARISON: 03/27/2023., PET/CT 03/27/2023. HISTORY: ION chest pre op CT DLP: 290.5 mGycm Automated exposure control for dose reduction was used. FINDINGS: Left upper lung mass measuring 25 x 17 mm. No greater than 1.0 cm lymph nodes. No focal consolidation , pneumothorax or pleural effusion. Coronary artery atherosclerosis with aortic valve leaflet calcifi cations. Scattered consultations of the airway cartilage. No mediastinal lymphadenopathy visualized. IMPRESSION: LEFT UPPER LUNG PULMONARY NODULE DESCRIBED WITH PET/CT. MRI
[2023-05-10 12:05] LABS: Glucose,Whole Blood 143 mg/dL (70-110)
[2023-05-10] MEDS ORDERED: PROPOFOL 10 MG/ML 20 ML VIAL IV ONE (12:32)
[2023-05-10] MEDS ORDERED: fentaNYL (PF) 50 MCG/ML 2 ML AMP ONE (12:32)
[2023-05-10] MEDS ORDERED: SUCCINYLCHOLINE CHLORIDE 200 MG/10 ML VIAL IV ONE (12:32)
[2023-05-10] MEDS ORDERED: GLYCOPYRROLATE 0.2 MG/ML 2 ML VIAL ONE (12:32)
[2023-05-10] MEDS ORDERED: LIDOCAINE 2% INJ 20 MG/ML (2 ML VIAL) ONE (12:32)
[2023-05-10] MEDS ORDERED: METOPROLOL TARTRATE 5 MG/5 ML VIAL IVP ONE (12:32)
[2023-05-10] MEDS ORDERED: ROCURONIUM 10 MG/ML (5 ML VIAL) IV ONE (12:32)
[2023-05-10] MEDS ORDERED: NEOSTIGMINE 1 MG/ML 10 ML VIAL ONE (12:32)
--- NOTE | 2023-05-10 14:02 | P.PCN ---
Date of Procedure: 05/10/23 Operative Findings: Preoperative Diagnosis: Left upper lobe mass Postoperative Diagnosis: Left upper lobe mass Procedure(s) Performed: Flexible bronchoscopy Robotic-assisted bronchoscopy and addition to radial ultrasound evaluation of the DRE lung mass Robotic-assisted test monitor needle aspirate, transbronchial biopsies, transbronchial brushing of the Left upper lobe mass in addition to a bronchioloalveolar lavage Anesthesia: MARIPOSA Surgeon: Bladimir Vargas Estimated Blood Loss (ml): 0 Pathology: other Condition: stable Disposition: same day Operative Findings: A physical exam was performed. Informed consent was obtained from the patient after explaining all the risks (pneumothorax, life threatening bleeding, infection and adverse effects due to medications), benefits and alternatives to the procedure which the patient appeared to understand and so stated. The patient was connected to the monitoring devices. General anesthesia was induced and the patient was intubated by anesthesia. A final timeout was performed and the procedure confirmed by the attending staff bronchoscopist. The bronchoscope was inserted and the airway examined. The flexible bronchoscope was removed and the robotic bronchoscope was inserted. Registration was completed. I next guided the robotic bronchoscope using the navigation system into the left upper lobe apical segment. Once in proper position, the bronchoscope was frozen. The radial EBUS probe was placed through the bronchoscope and confirmed abnormal u/s images vs normal lung. A needle was placed through the working channel and under fluoroscopic guidance, we sampled the area thought to have the mass twice. We then used a cloud biopsy pattern with ultrasound confirmation for 2 additional passes with the needle. U/S evaluation was then used to reconfirm location. Forceps were next introduced through working channel and extended the appropriate distance and 6 transbronchial biopsies were performed using fluoroscopic guidance. The u/s probe was then reinserted to confirm location. When confirmed this process was repeated for a total of 6 transbronchial biopsies. After reassessment with EBUS, a brush was placed through the extendable working channel for 1 pass with fluoroscopic guidance. U/S evaluation was then used to confirm location. 40ml of saline was then instilled into the area of the lesion. The robotic bronchoscope was removed and the airway inspected with a flexible bronchoscope and 10 ml of effluent from the BAL was collected. The aspirate was bloody and ultimately declotted and based on that, the sample was discarded. Fluoroscopic check for pneumothorax was negative upon completion of the procedure. There was 0 ml blood loss with the procedure. FINDINGS: 1.The airways appeared normal 2 Successful navigation, ultrasonographic identification, and biopsies of left upper lobe mass 3.The the radial ultrasound view was (Concentric/Eccentric)}. RECOMMENDATIONS: Await pathology and cytology results The referring physician will be alerted to the results when available. The patient was advised to follow up with the referring physician with the biopsy results Patient will be called with results.
[2023-05-10 14:16] VITALS: RESP 16; TEMP 97
--- NOTE | 2023-05-10 14:34 | XR ---
EXAMINATION TYPE: XR chest 1V portable DATE OF EXAM: 05/10/2023 COMPARISON: 05/10/2023 HISTORY: Pulmonary mass TECHNIQUE: Single frontal view of the chest is obtained. FINDINGS: There is no focal air space opacity, pleural effusion, or pneumothorax seen. The cardiac silhouette size is within normal limits. Large right upper lobe lung mass measuring 2.4 cm. Atheroscl erotic changes aorta. Hypertrophic degenerative changes spine. AC joint arthropathy.. IMPRESSION: 1. No pneumothorax post procedure. 2. Left lung mass.
[2023-05-10] MEDS ORDERED: FAMOTIDINE 20 MG/2 ML VIAL IVP ONE (14:39)
--- NOTE | 2023-05-10 15:13 | FL ---
Intraoperative/procedural fluoroscopic services were provided. Total fluoroscopy time is 3 minutes 34 seconds seconds with a total of 1 submitted images to PACS. Please see the operative/procedural note for further details. DAP: 15.416 Gycm2
[2023-05-10] MEDS ORDERED: LACTATED RINGERS 1,000 ML IV ONE (15:15)
[2023-05-10 16:32] VITALS: BP 110/67; PULSE 83
[2023-05-10 16:38] LABS: Glucose,Whole Blood 163 mg/dL (70-110)
== END 2023-05-10 16:36 | disposition home or self-care (01) ==
LOC: ORWHC2ENDO 10:50
PROVIDERS: ATTEND Internal Medicine Critical Care Medicine
DX: R91.1 Solitary pulmonary nodule (principal); E78.5 Hyperlipidemia, unspecified; E11.9 Type 2 diabetes mellitus without complications; E03.9 Hypothyroidism, unspecified; Z88.5 Allergy status to narcotic agent; K21.9 Gastro-esophageal reflux disease without esophagitis; Z79.899 Other long term (current) drug therapy
CPT/HCPCS: 88108; 88305; 88173; 87070; 87205; 87116; 87102; 87206; 71045; 71250; 31628; 31629; 31623; 31624; J0330; J2710; J3010; J2704; J2001; S2900

== ENCOUNTER → 2023-06-06 | Outpatient (CLI) | payer MEDICARE ==
[~2023-06-06] MED LIST changes: -LACTATED RINGERS 1,000 ML IV SCH; +REGADENOSON 0.4 MG/5 ML SYRINGE IV PRN
--- NOTE | 2023-06-06 11:58 | NM ---
EXAMINATION TYPE: NM stress lexiscan cardiolite DATE OF EXAM: 06/06/2023 COMPARISON: NONE CLINICAL INDICATION: Female, 82 years old with history of I20.9 ANGINA PECTORIS, UNSPECIFIED; TECHNIQUE: After the intravenous administration of 9.9 mCi Tc 99m Sestamibi - Cardiolite resting SPE CT images acquired 45 minutes post injection. The patient received 0.4mg Lexiscan, 25.8 mCi Tc 99m Sestamibi - Stress images obtained [address] injection FINDINGS: Review of stress and rest SPECT images demonstrates no distinct perfusion abnormality. Gated analysi s shows normal wall motion with an estimated left ventricular ejection fraction of 81 %. IMPRESSION: No scintigraphic evidence for reversible ischemia.
--- NOTE | 2023-06-07 07:27 | CA ---
Dobutamine Nuclear Stress Test Report Name: Alaina Barrera Exam Date: 06/06/2023 10:30 Exam Location: [facility] Ht (in): 61 Wt (lb): 159 BSA: 1.71 Ordering Phys: Salbador Bajwa MD Referring Phys: SALBADOR BAJWA,, Technologist: Serafin Medrano Age: 82 Gender: F : 1940 Procedure CPT: Indications: I20.9 ANGINA PECTORIS, UNSPECIFIED ICD-10 Codes: Patient History: Medications: SEE LIST Meds past 24 hrs: Pretest Chest Pain: STRESS TEST Dobutamine Protocol Exercise Duration (min:sec): 02:[address] Depressions (mm): Angina Score: Daniels Score: Resting HR (bpm): 77 Peak HR (bpm): 105 Resting BP (mmHg): 145 / 68 Peak BP (mmHg): 158 / 72 MPHR: 138 Target HR: 117 % MPHR: 76 METS: 1.0 Total Dose: Peak Dose: Atropine: Double Product: 80908 BP Response: Stress Termination: PROTOCOL COMPLETE Stress Symptoms: NO SYMPTOMS Stress Summary: ECG ANALYSIS Resting ECG: Stress ECG: CONCLUSIONS None diagnostic electrocardiogram stress testing Please follow-up on the Cardiolite portion Dr. Luis Armando Altamirano MD (Electronically Signed) Final Date: 07 June 2023 07:26
== END | disposition home or self-care (01) ==
LOC: RADNMMAIN 08:41
PROVIDERS: ATTEND Thoracic Surgery (Cardiothoracic Vascular Surgery)
DX: I20.9 Angina pectoris, unspecified (principal)
CPT/HCPCS: 93017; 78452; A9500; J2785

== ENCOUNTER → 2023-06-25 | Outpatient (CLI) | payer MEDICARE ==
[2023-06-25 13:46] LABS: Partial Thromboplastin Time 24.7 sec (22.0-30.0); Prothrombin Time 10.3 sec (9.0-12.0)
[2023-06-25 21:21] LABS: Basophils # (A) 0.02 X 10*3/uL (0.00-0.10); Basophils % (A) 0.4 %; Eosinophils # (A) 0.14 X 10*3/uL (0.04-0.35); Eosinophils % (A) 2.6 %; HCT 41.6 % (37.2-46.3); HGB 13.5 d/dL (12.0-15.0); Lymphocytes # (A) 1.76 X 10*3/uL (0.90-5.00); Lymphocytes % (A) 32.8 %; MCH 31.5 pg (27.0-32.0); MCHC 32.5 d/dL (32.0-37.0); Mean Platelet Volume 10.7 FL (9.5-12.2); Monocytes # (A) 0.36 X 10*3/uL (0.20-1.00); Monocytes % (A) 6.7 %; NRBC Per 100 WBC 0 X 10*3/uL (0.00-0.01); Neutrophils # (A) 3.08 X 10*3/uL (1.80-7.70); Neutrophils % (A) 57.3 %; Platelet Count 210 X 10*3/uL (140-440); RBC 4.29 X 10*6/uL (4.10-5.20); RDW 12.7 % (11.5-14.5); WBC 5.37 X 10*3/uL (4.50-10.00)
[2023-06-25 22:00] LABS: ALT 37 U/L (8-44); AST 35 U/L (13-35); Albumin 4.7 d/dL (3.8-4.9); Albumin/Globulin Ratio 1.62 Ratio (1.60-3.17); Alkaline Phosphatase 42 U/L (41-126); BUN/Creat Ratio 14.57 Ratio (12.00-20.00); Bilirubin, Conjugated <0.20 mg/dL (0.20-0.40); Bilirubin,Unconjugated >0.40 mg/dL (0.20-1.00); Blood Urea Nitrogen 10.2 mg/dL (9.0-27.0); Calcium 10.5 mg/dL (8.7-10.3); Carbon Dioxide 25.8 mmol/L (21.6-31.8); Chloride 100 mmol/L (96-109); Globulin 2.9 d/dL (1.6-3.3); Glucose 260 mg/dL (70-110); Potassium 4.2 mmol/L (3.5-5.5); Sodium 139 mmol/L (135-145); Total Bilirubin 0.6 mg/dL (0.3-1.2); Total Protein 7.6 d/dL (6.2-8.2)
== END | disposition home or self-care (01) ==
LOC: LABWHC1 11:17
PROVIDERS: ATTEND Thoracic Surgery (Cardiothoracic Vascular Surgery)
DX: Z01.818 Encounter for other preprocedural examination (principal); I45.19 Other right bundle-branch block; K74.60 Unspecified cirrhosis of liver; R94.31 Abnormal electrocardiogram [ECG] [EKG]
CPT/HCPCS: 36415; 80053; 82248; 85025; 85610; 85730; 93005

== ENCOUNTER 2023-07-05 09:38 | Inpatient (IN) | payer MEDICARE ==
[~2023-07-05 09:38] MED LIST changes: +DEXAMETHASONE SOD PHOSPHATE 4 MG/ML 1 ML VIAL IV ONE; +ONDANSETRON 4 MG/2 ML VIAL IVP ONE; -REGADENOSON 0.4 MG/5 ML SYRINGE IV PRN
[2023-07-05 10:35] LABS: Glucose,Whole Blood 134 mg/dL (70-110)
[2023-07-05] MEDS: LACTATED RINGERS 1,000 ML IV SCH ×2 (10:43→12:13)
[2023-07-05] MEDS ORDERED: MIDAZOLAM 2 MG/2 ML VIAL IVP ONE ×2 (10:53)
[2023-07-05] MEDS: fentaNYL (PF) 50 MCG/ML 2 ML AMP IV PRN ×5 (10:53→16:23)
[2023-07-05] MEDS ORDERED: DEXAMETHASONE SOD PHOSPHATE 4 MG/ML 1 ML VIAL IVP ONE ×2 (11:22)
[2023-07-05] MEDS ORDERED: PHENYLEPHRINE-0.9% NACL SYG 1,000 MCG/10 ML SYRINGE ONE (12:10)
[2023-07-05] MEDS ORDERED: INDOCYANINE GREEN 25 MG VIAL IV ONE (12:10)
[2023-07-05] MEDS ORDERED: LIDOCAINE 1% INJ 10MG/ML (20 ML MDV) ONE (12:10)
[2023-07-05] MEDS ORDERED: GLYCOPYRROLATE 0.2 MG/ML 2 ML VIAL ONE (12:10)
[2023-07-05] MEDS ORDERED: SODIUM CHLORIDE 0.9% (PF) 10 ML VIAL ONE (12:10)
[2023-07-05] MEDS ORDERED: SUCCINYLCHOLINE CHLORIDE 200 MG/10 ML VIAL IV ONE (12:10)
[2023-07-05] MEDS ORDERED: fentaNYL (PF) 50 MCG/ML 2 ML AMP ONE (12:10)
[2023-07-05] MEDS ORDERED: LABETALOL 5 MG/ML VIAL MDV ONE (12:10)
[2023-07-05] MEDS ORDERED: DEXAMETHASONE SOD PHOSPHATE 4 MG/ML 1 ML VIAL ONE (12:10)
[2023-07-05] MEDS ORDERED: PROPOFOL 10 MG/ML 20 ML VIAL IV ONE (12:10)
[2023-07-05] MEDS ORDERED: HYDROmorphone (PF) 1 MG/ML ONE (12:10)
[2023-07-05] MEDS ORDERED: NEOSTIGMINE 1 MG/ML 10 ML VIAL ONE (12:10)
[2023-07-05] MEDS ORDERED: ePHEDrine 50 MG/ML 1 ML VIAL ONE (12:10)
[2023-07-05] MEDS ORDERED: MIDAZOLAM 2 MG/2 ML VIAL ONE (12:10)
[2023-07-05] MEDS ORDERED: ROPIVACAINE 5 MG/ML 30 ML VIAL ONE (12:10)
[2023-07-05] MEDS ORDERED: KETAMINE HCL IN 0.9 % NACL 50 MG/5 ML SYRINGE ONE (12:10)
[2023-07-05] MEDS ORDERED: ROCURONIUM 10 MG/ML (5 ML VIAL) IV ONE (12:10)
[2023-07-05] MEDS ORDERED: BUPIVACAINE (PF) 0.5% 30 ML VIAL SQ ONE (12:42)
--- NOTE | 2023-07-05 13:36 | P.ANPRN ---
Procedure Note - Anesthesia - Nerve Block Performed Left Erector Spinae Single Time Out Performed: Yes (3523) Location of Patient: PreOp Indication: Acute Post-Operative Pain, Dx/Pain Location (Left Chest), Requested by Surgeon Specifically requested for management of pain by DrDandre: Ney Bajwa Sedation Type: Sedate with meaningful contact maintained Position: Prone Catheter: None Needle Types: Pajunk Needle Gauge: 21 Ultrasound used to visualize needle placement: Yes Ultrasound used to observe medication spread: Yes Injectate: 0.5% Ropivacaine (see comment for volume) (30+4 mg of Decadron +10 mL of saline) Blood Aspirated: No Pain Paresthesia on Injection Noted: No Resistance on Injection: Normal Image Stored and Saved: Yes Events: Uneventful and Well Tolerated - Invasive Line Right Arterial Line Time Out Performed: Yes Location of Patient: PreOp Preparation: Sterile Prep, Sterile Dressing Arterial Line Location: Radial Ultrasound Used: No Purpose - Visualization and Identification of Vasculature: No Image Stored and Saved: Yes Narrative: Central line placement per sterile protocol utilized. Informed consent obtained from the patient. Procedure was performed under complete aseptic precautions. The right wrist is slightly extended and placed on a roll of cloth. Radial artery palpated and appeared to have a intact collateral circulation. Front of the wrist was cleaned with ChloraPrep. It was draped and 2 mL of 1% lidocaine was infiltrated and ability into the front of the wrist. A 20-gauge two and half inch Arrow arterial catheter was inserted and a bright red blood/back was noticed. It was connected to the pressure monit oring line and the flashback was confirmed. The line was sutured into the skin. Tegaderm dressing was applied. Patient tolerated the procedure very well with no apparent complications.
--- NOTE | 2023-07-05 15:54 | XR ---
EXAMINATION TYPE: XR chest 1V portable DATE OF EXAM: 07/05/2023 COMPARISON: 05/10/2023 HISTORY: Postop TECHNIQUE: Single frontal view of the chest is obtained. FINDINGS: Postsurgical change of soft tissue emphysema. There is a left-sided chest tube with no siz able pneumothorax. Volume loss on the left seen compatible with recent surgery. Right lung clear. Hea rt size normal. Atherosclerotic change aorta. Arthropathy of the AC joints. Hypertrophic and degenerative changes spine. Subsegmental changes left lung base most compatible with atelectasis. Rounded nodular density seen in the left suprahilar region may be related to superimposed structures and could be followed with subs equent chest x-ray. IMPRESSION: 1. Postoperative changes with no sizable pneumothorax.
--- NOTE | 2023-07-05 16:01 | P.OP ---
Date of Procedure: 07/05/23 Preoperative Diagnosis: Left upper lobe nodule Postoperative Diagnosis: Same Procedure(s) Performed: 1. Bronchoscopy 2. Left robotic assisted thorascopic surgery with left upper lobe apico- posterior segementectomy using the QA on Request FireFly Angiography System 3. Mediastinal lymph node dissection 4. Intercostal nerve block 2 levels Anesthesia: GETA Surgeon: Ney Bajwa Splunk Architect #1: Favian Narvaez Estimated Blood Loss (ml): 50 Pathology: other (left upper lobe AP segement, LN stations L6,,9,11,12LUL, 13LUL, 7) Condition: stable Disposition: PACU Indications for Procedure: This patient is a 82 year-old female who is a former smoker who was noted to have a 2.2cm DRE nodule. She underwent interval CT scan and the nodule was noted to increase in size to 2.5cm. However, PET/CT scan was negative for FDG avidity in the nodule and biopsy was conducted which was essentially inconclusive. 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 Description of Procedure: The patient underwent erector spinae block, and arterial line placement in the pre-operative suite. She was brought back to the operating room and placed in the supine position. General anesthesia was induced and the patient was intubated with a 35F CARI. Bronchoscopy was performed to confirm tube placement and for diagnostic purposes. There were no endobronchial lesions and minimal s ecretions noted. The patient was turned on the right lateral decubitus postion and her left chest was prepped and draped in the usual sterile fashion. Her left lung was isolated. We mad an 8mm incision in the 8th intercostal space anterior axillary line. The trocar was inserted bluntly and camera revealed entry into the pleural space. The chest was insufflated to 10mm Hg. Two additional 12 mm ports were placed anteriorly and posteriorly. A 4th 8mm port was placed posteriorly in the same intercostal space and a 15mm assist port was placed in the 10th intercostal space anterior axillary line. Intercostal nerve block was performed at both levels. The [employer] robot was docked and we began out dissection by taking down the inferior pulmonary ligament using biopolar cautery. The level 9L lymph node was harvested here. This dissection was carried upward and the subcarinal lymph node was harvested. The main PA was dissected free and the level 11 node was harvested here. Superiorly in the AP window the level 5 node was retrieved. Posteriorly the posterior ascending branch of the PA was circumferentially dissected, encircled and stapled using a vascular load. Attention was turned anteriorly and the mediastinal pleura was opened over the superior vein. The apico-posterior branch was identified, encircled and stapled using a vascular load. The lingular vein was preserved. Attention was turned superiorly and the truncus branch was dissected free, encircled and stapled using a vascular load. Lastly the apico-posterior branch of the bronchus was encircled and stapled using a green load. Prior to stapling the lingula was successfully ventilated by un-isolating the left lung. Lastly, 1cc of ICG was administered by anesthesia and the robotic FireFly system was used to perform angiography of the upper lobe. There was a clear demarcartion between the lingula and apico-posterior segment. This was marked with bipolar and stapled using serial firings of the robotic stapler using green and black loads. The specimen was placed in a retrieval bag and the left chest was irrigated and a 28F Chest tube was inserted via the anterior incision. The specimen was sent to pathology for frozen which revealed just mucin without evidence of malignancy within the nodule. All incisions were closed in layers of vicryl and the left lung was un-isolated. The patient was extubated.
[2023-07-05 16:05] LABS: Glucose,Whole Blood 222 mg/dL (70-110)
[2023-07-05] MEDS ORDERED: SODIUM CHLORIDE 0.9% 1,000 ML IV SCH (16:48)
[2023-07-05] MEDS ORDERED: LOPERAMIDE 2 MG CAP PO PRN (16:48)
[2023-07-05] MEDS ORDERED: DEXTROSE 50% SYRINGE 50 ML IVP PRN ×2 (16:48)
[2023-07-05] MEDS ORDERED: ONDANSETRON 4 MG/2 ML VIAL IVP PRN (16:48)
[2023-07-05] MEDS ORDERED: IPRATROPIUM-ALBUTEROL 3 ML NEB IH PRN (16:48)
[2023-07-05] MEDS: KETOROLAC 15 MG/ML 1 ML VIAL IVP SCH ×2 (17:15→23:57)
[2023-07-05] MEDS: HEPARIN SODIUM,PORCINE 5,000 UNIT/ML 1 ML VIAL SQ SCH ×2 (17:16→23:57)
[2023-07-05 17:29] LABS: Glucose,Whole Blood 173 mg/dL (70-110)
[2023-07-05] MEDS: INSULIN ASPART (NovoLOG) 100 UNIT/ML VIAL SQ SCH ×2 (17:31→21:02)
[2023-07-05] MEDS: IPRATROPIUM-ALBUTEROL 3 ML NEB IH SCH ×2 (17:51→21:01)
[2023-07-05 19:42] LABS: Glucose,Whole Blood 157 mg/dL (70-110)
[2023-07-05] MEDS: FORMOTEROL FUMARATE 20 MCG/2 ML NEBU INHALATION SCH (21:01)
[2023-07-05] MEDS: MAGNESIUM OXIDE 400 MG TAB PO SCH (21:01)
[2023-07-05] MEDS: traMADol 50 MG TAB PO PRN (22:04)
[2023-07-06 06:00] LABS: Glucose,Whole Blood 168 mg/dL (70-110)
[2023-07-06] MEDS: KETOROLAC 15 MG/ML 1 ML VIAL IVP SCH ×3 (06:13→18:28)
[2023-07-06] MEDS: LEVOTHYROXINE 50 MCG TAB PO SCH (06:13)
[2023-07-06] MEDS: INSULIN ASPART (NovoLOG) 100 UNIT/ML VIAL SQ SCH ×4 (06:14→21:05)
[2023-07-06 07:03] LABS: Basophils % (A) 0 %; Eosinophils # (A) 0.1 k/uL (0-0.7); Eosinophils % (A) 1 %; HGB 11.4 gm/dL (11.4-16.0); Lymphocytes # (A) 1.1 k/uL (1.0-4.8); Lymphocytes % (A) 12 %; MCH 32.6 pg (25.0-35.0); MCHC 33.6 g/dL (31.0-37.0); Mean Platelet Volume 8.4; Monocytes # (A) 0.4 k/uL (0-1.0); Monocytes % (A) 5 %; Neutrophils # (A) 7.8 k/uL (1.3-7.7); Neutrophils % (A) 82 %; Platelet Count 137 k/uL (150-450); RBC 3.51 m/uL (3.80-5.40); WBC 9.5 k/uL (3.8-10.6)
[2023-07-06 07:50] LABS: African American GFR (CKD) >90 (>60 ml/min/1.73 sqM); Anion Gap 8 mmol/L; Blood Urea Nitrogen 16 mg/dL (7-17); Calcium 8.9 mg/dL (8.4-10.2); Carbon Dioxide 24 mmol/L (22-30); Chloride 105 mmol/L (98-107); Glucose 153 mg/dL (74-99); Non-African American GFR(CKD) 86 (>60 ml/min/1.73 sqM); Potassium 4.4 mmol/L (3.5-5.1); Sodium 137 mmol/L (137-145)
[2023-07-06] MEDS: HEPARIN SODIUM,PORCINE 5,000 UNIT/ML 1 ML VIAL SQ SCH ×2 (08:19→18:28)
[2023-07-06] MEDS: metFORMIN 500 MG TAB PO SCH ×2 (08:19→21:05)
[2023-07-06] MEDS: ACETAMINOPHEN TAB 325 MG TAB PO PRN ×2 (08:19→21:24)
[2023-07-06] MEDS: ATORVASTATIN 40 MG TAB PO SCH (08:19)
[2023-07-06] MEDS: PANTOPRAZOLE 40 MG TABLET PO SCH (08:19)
--- NOTE | 2023-07-06 08:19 | XR ---
EXAMINATION TYPE: XR chest 1V DATE OF EXAM: 07/06/2023 COMPARISON: 07/05/2023 HISTORY: Postop TECHNIQUE: Single frontal view of the chest is obtained. FINDINGS: Left-sided chest tube with proximal 25-30% pneumothorax. Volume loss mediastinal deviation . Atherosclerotic change aorta. Nodular area of consolidation are noted in the left lung clear. The s pine. Throughout the shoulders. Subcutaneous emphysema is stable. IMPRESSION: 1. There is now a approximate 25-30% left-sided pneumothorax. Chest tube noted in position
[2023-07-06] MEDS: IPRATROPIUM-ALBUTEROL 3 ML NEB IH SCH ×4 (08:58→21:29)
[2023-07-06] MEDS: FORMOTEROL FUMARATE 20 MCG/2 ML NEBU INHALATION SCH ×2 (08:59→21:29)
[2023-07-06] MEDS ORDERED: VITAMIN C PO SCH (09:00)
[2023-07-06] MEDS ORDERED: [UNRECOGNIZED DRUG - OTHER] PO SCH (09:00)
[2023-07-06] MEDS ORDERED: BIOTIN PO SCH (09:00)
[2023-07-06] MEDS ORDERED: VITAMIN B COMPLEX PO SCH (09:00)
--- NOTE | 2023-07-06 09:16 | P.PN ---
Subjective Progress Note Date: 07/06/23 Principal diagnosis: Left upper lobe nodule. Previous medical history of right breast cancer 15 years ago status post chemo and radiation, previous tobacco dependence, COPD, type 2 diabetes, hyperlipidemia, hypothyroid, fatty liver with cirrhosis POD #1 bronchoscopy, left robotic-assisted thoracoscopic surgery with left upper lobe apical-posterior segmentectomy using the [employer] angiography system, mediastinal lymph node dissection, intercostal nerve blocks at 2 level The patient was seen and examined this morning with Dr. Bajwa sitting up in a recliner in the cardiac stepdown unit in no acute distress. She states pain is controlled on current medication regimen although does her when she coughs, denies shortness of breath. Remains in sinus rhythm, hemodynamically stable. Currently on room air with oxygen saturation in the low 90s. Only able to achieve 500 mL on incentive spirometry. Chest x-ray, labs reviewed. Left sided pleural chest tube present, was to waterseal this morning, patient has intermittent air leak with expiration, was placed back to continuous wall suction. No other new concerns. Objective - Vital Signs Vital signs: Vital Signs Temp 98.0 F 07/06/23 08:18 Pulse 100 07/06/23 08:18 Resp 18 07/06/23 08:18 BP 120/66 07/06/23 08:18 Pulse Ox 93 L 07/06/23 08:18 FiO2 Intake & Output 07/05/23 07/06/23 07/06/23 18:59 06:59 18:59 Intake Total 1130 480 480 Output Total 140 1132 175 Balance 990 -652 305 Weight 74 kg Intake: IV 950 Oral 180 480 480 Output: Chest Tube Drainage 130 532 Chest Tube Left Anterior 130 532 Chest Urine 600 175 Estimated Blood Loss 10 Other: Voiding Method Bedside Commode Bedside Commode # Voids 1 - Exam CONSTITUTIONAL: Appears comfortable, cooperative, no acute distress RESPIRATORY: Lungs sounds diminished bilaterally. Respirations even, nonlabored. Currently on room air with oxygen saturation 93%. Able to achieve 500 mL on incentive spirometry. Strong cough. CARDIOVASCULAR: S1, S2 present. Regular rate and rhythm, sinus rhythm on telemetry. Palpable peripheral pulses bilaterally. No edema present GASTROINTESTINAL: Abdomen soft, nontender, nondistended. Active bowel sounds present 4 quadrants. Tolerating diet GENITOURINARY: Continues to void INTEGUMENTARY: Skin is warm and dry NEUROLOGIC: Cranial nerves II through XII intact MUSKULOSKELETAL: Able to move all extremities, strength equal bilaterally, gait normal PSYCHIATRIC: Alert and oriented to person place and time, appropriate affect, intact judgment and insight INVASIVE LINES AND TUBES: Left pleural chest tube present and connected to wall suction, intermittent air leak present with expiration, 320 mL serosanguineous drainage overnight, 660 mL since surgery - Allied health notes Allied health notes reviewed: nursing - Labs CBC & Chem 7: 07/06/23 06:44 07/06/23 06:44 Labs: Abnormal Lab Results - Last 24 Hours (Table) 06/25/23 07/05/23 07/05/23 Range/Units 11:25 10:31 16:02 RBC (3.80-5.40) m/uL Plt Count (150-450) k/uL Neutrophils # (1.3-7.7) k/uL Glucose (74-99) mg/dL POC Glucose (mg/dL) 134 H 222 H (70-110) mg/dL Crossmatch See Detail 07/05/23 07/05/23 07/06/23 Range/Units 17:27 19:41 05:58 RBC (3.80-5.40) m/uL Plt Count (150-450) k/uL Neutrophils # (1.3-7.7) k/uL Glucose (74-99) mg/dL POC Glucose (mg/dL) 173 H 157 H 168 H (70-110) mg/dL Crossmatch 07/06/23 07/06/23 Range/Units 06:44 06:44 RBC 3.51 L (3.80-5.40) m/uL Plt Count 137 L (150-450) k/uL Neutrophils # 7.8 H (1.3-7.7) k/uL Glucose 153 H (74-99) mg/dL POC Glucose (mg/dL) (70-110) mg/dL Crossmatch - Imaging and Cardiology Chest x-ray: report reviewed, image reviewed Assessment and Plan Assessment: Left upper lobe nodule, status post left VATS with left upper lobe apical- posterior segmentectomy History of right breast cancer 15 years ago status post chemo and radiation Previous tobacco dependence COPD Type 2 diabetes Hyperlipidemia Hypothyroid Fatty liver with cirrhosis Plan: Continue pleural chest tube to continuous wall suction, monitor for air leak resolution, monitor drainage Encourage incentive spirometry use 10 times every hour while awake. Bronchodilators per pulmonology Will monitor daily labs and x-rays Increase activity, ambulate as tolerated GI/DVT prophylaxis Pain control with current medication regimen Continue home medications More recommendations to follow
[2023-07-06 11:29] LABS: Glucose,Whole Blood 186 mg/dL (70-110)
--- NOTE | 2023-07-06 11:55 | P.CNPUL ---
History of Present Illness Consult date: 07/06/23 Requesting physician: Ney Bajwa Reason for consult: lung mass, abnormal CXR/CT Chief complaint: Pulmonary nodule. History of present illness: Pulmonary consult dated 07/06/2023. 82-year-old female, postop day #1, status post robotically assisted left upper lobe segmentectomy, and mediastinal lymph node dissection. Done by Dr. Bajwa. The patient is seen in room 357. The patient's on room air, and without any IV fluids. She does have a left-sided chest tube leak. Clinically she will looks well. Current labs include a white count 9.5, hemoglobin 11.4, hematocrit 34, and a platelet count of 137,000. Sodium 137, potassium 4.4, chlorides 105, CO2 24, BUN 16, creatinine 0.59. Chest x-ray shows a 25-30% left-sided pneumothorax. Chest tube is in place. 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 The patient has a history of hyperlipi demia, diabetes, and hypothyroidism. Review of Systems REVIEW OF SYSTEMS: CONSTITUTIONAL: [Negative.] NEUROLOGIC: [ Negative.] HEENT: [ Negative.] CARDIAC: [Negative.] PULMONARY: [Negative.] GI: [Negative.] : [Negative.] RHEUMATOLOGIC: [ Negative.] IMMUNOLOGIC: [ Negative.] ENDOCRINE: [Negative. ] DERMATOLOGIC: [Negative.] Past Medical History Past Medical History: Cancer, Diabetes Mellitus, Eye Disorder, GERD/Reflux, Hyperlipidemia, Liver Disease, Skin Disorder, Thyroid Disorder Additional Past Medical History / Comment(s): Cataracts, Glaucoma. Cirrhosis of liver, fatty liver "due to medication in past". Occasional urinary urgency/incontinence, occasional diarrhea. Hx right breast cancer 15+ yrs had surgery, radiation and took Tamoxifen for 5 yrs. Hx colon polyps. Lung nodules. Hidradenitis. Cyst on kidney. Hx migraines a long time ago, none since hysterectomy. Vertigo. History of Any Multi-Drug Resistant Organisms: None Reported Past Surgical History: Appendectomy, Back Surgery, Cholecystectomy, Hysterectomy Additional Past Surgical History / Comment(s): Colonoscopy with polypectomy, right breast lumpectomy, throat nodules removed, removal of synovial cyst on spine, EGD, bronchoscopy. Past Anesthesia/Blood Transfusion Reactions: No Reported Reaction Additional Past Anesthesia/Blood Transfusion Reaction / Comment(s): STATES HAS TO HAVE GENERAL ANESTHESIA. Vertigo. no blood transfusion Past Psychological History: No Psychological Hx Reported Smoking Status: Former smoker Past Alcohol Use History: None Reported Additional Past Alcohol Use History / Comment(s): QUIT SMOKING 15-20 YEARS AGO, smoked 1ppd for 30 yrs. Past Drug Use History: None Reported - Past Family History Father Family Medical History: Cancer Additional Family Medical History / Comment(s): COLON CANCER. Sister(s) Family Medical History: Cancer Additional Family Medical History / Comment(s): COLON CANCER. Medications and Allergies Home Medications Medication Instructions Recorded Confirmed Type Clindamycin Topical Soln 1 applic TOPICAL BID PRN 06/25/18 07/05/23 History [Cleocin-T Topical Soln] Levothyroxine Sodium [Synthroid] 50 mcg PO DAILY 06/25/18 07/05/23 History metroNIDAZOLE 0.75% CREAM 1 applic TOPICAL BID PRN 02/27/22 07/05/23 History [Metrocream 0.75%] Loperamide [Imodium] 2 mg PO DAILY PRN 05/04/23 07/05/23 History Magnesium Oxide [Mag-Ox] 400 mg PO HS 05/04/23 07/05/23 History Melatonin 5 mg PO HS PRN 05/04/23 07/05/23 History metFORMIN HCL ER [Glucophage XR] 1,000 mg PO DAILY 05/04/23 07/05/23 History Atorvastatin [Lipitor] 40 mg PO DAILY 06/29/23 07/05/23 History Biotin Gummy 1,000 mcg PO DAILY 06/29/23 07/05/23 History Cholecalciferol [Vitamin D3 (25 75 mcg PO DAILY 06/29/23 07/05/23 History Mcg = 1000 Iu)] Desoden 1 applic TOPICAL DIRECTED 06/29/23 07/05/23 History Ontiveros Minoxidil 1 tab PO BID 06/29/23 07/05/23 History Vitamin B Complex/ Vitamin C 1 tab PO DAILY 06/29/23 07/05/23 History Allergies Allergy/AdvReac Type Severity Reaction Status Date / Time codeine Allergy Swelling Verified 07/05/23 10:12 minocycline [From Minocin] Allergy Nausea & Verified 07/05/23 10:12 Vomiting adhesive tape AdvReac Rash/Hives Verified 07/05/23 10:12 Egg White Allergy Unknown Uncoded 07/05/23 10:12 Physical Exam Osteopathic Statement: *. No significant issues noted on an osteopathic structural exam other than those noted in the History and Physical/Consult. Vitals: Vital Signs Temp Pulse Pulse Resp BP BP Pulse Ox 07/06/23 09:22 88 07/06/23 09:11 88 07/06/23 09:10 88 07/06/23 08:59 88 07/06/23 08:18 98.0 F 100 18 120/66 93 L 07/06/23 04:00 67 20 114/62 94 L 07/06/23 02:00 99 20 07/06/23 00:00 99 20 112/66 98 07/05/23 21:16 84 07/05/23 21:10 84 07/05/23 21:03 84 07/05/23 20:00 97.7 F 94 20 150/71 99 07/05/23 17:47 97.4 F L 84 24 158/81 96 07/05/23 16:45 74 16 160/73 98 07/05/23 16:30 73 16 160/74 97 07/05/23 16:15 75 16 168/75 165/65 99 07/05/23 16:04 73 16 170/79 167/67 100 07/05/23 15:49 75 16 184/81 170/70 100 07/05/23 15:33 97 F L 75 12 173/77 161/69 100 Intake and Output 07/05/23 07/06/23 07/06/23 22:59 06:59 14:59 Intake Total 280 480 480 Output Total 290 982 240 Balance -10 -502 240 Intake: IV 100 Oral 180 480 480 Output: Chest Tube Drainage 280 382 65 Chest Tube Left Anterior 280 382 65 Chest Urine 600 175 Estimated Blood Loss 10 Other: Voiding Method Bedside Commode Bedside Commode Bedside Commode # Voids 1 No acute distress, oriented 3. Currently on room air. Saturations 95%. HEENT examination is grossly unremarkable. Mucous membranes are moist. No oral lesions. Neck supple. Full range of motion. No adenopathy thyromegaly or neck vein distention. Cardiovascular examination reveals regular rhythm rate. S1-S2 normal. No S3 or S4. No discernible murmur noted. Heart rate 88 bpm. Lungs reveal mostly clear breath sounds. Scattered rhonchi are noted. The patient has a hard time taking a deep breath. No wheezes. Saturations are 95% on room air. Left-sided chest tube noted. Abdomen soft bowel sounds are heard. No masses or tenderness. Extremities are intact. No cyanosis clubbing or edema. Skin is without rash or lesion. Neurologic examination is brief but nonfocal. Results - Laboratory Findings CBC and BMP: 07/06/23 06:44 07/06/23 06:44 Abnormal lab findings: Abnormal Labs 06/25/23 07/05/23 07/05/23 11:25 10:31 16:02 RBC Plt Count Neutrophils # Glucose POC Glucose (mg/dL) 134 H 222 H Crossmatch See Detail 07/05/23 07/05/23 07/06/23 17:27 19:41 05:58 RBC Plt Count Neutrophils # Glucose POC Glucose (mg/dL) 173 H 157 H 168 H Crossmatch 07/06/23 07/06/23 07/06/23 06:44 06:44 11:28 RBC 3.51 L Plt Count 137 L Neutrophils # 7.8 H Glucose 153 H POC Glucose (mg/dL) 186 H Crossmatch - Diagnostic Findings Chest x-ray: image reviewed Assessment and Plan Assessment: Postop day #1, status post robotically-assisted left upper lobe segmentectomy, and mediastinal lymph node dissection. 2.5 cm left upper lobe pulmonary nodule, with a negative PET CT fusion study, and biopsy, that was nondiagnostic. History of diabetes mellitus. History of hyperlipidemia. History of hypothyroidism. Plan: Plan dated 07/06/2023. The patient is postop day #1, status post robotically assisted left upper lobe segmentectomy, for a pulmonary nodule, 2.5 cm in size, which has recently increased in size. PET/CT fusion study was negative. Biopsies were inconclusi ve. The patient's currently on room air. No IV fluids. Left chest tube is in place with a leak. Labs, x-rays, and medications are reviewed. We will continue to follow make recommendations along the way. Time with Patient: Greater than 30
[2023-07-06] MEDS: CHOLECALCIFEROL 25 MCG (1000 IU) TABLET PO SCH (12:24)
[2023-07-06 16:35] LABS: Glucose,Whole Blood 146 mg/dL (70-110)
[2023-07-06 19:41] LABS: Glucose,Whole Blood 202 mg/dL (70-110)
[2023-07-06] MEDS: MAGNESIUM OXIDE 400 MG TAB PO SCH (21:05)
[2023-07-07] MEDS: KETOROLAC 15 MG/ML 1 ML VIAL IVP SCH ×4 (01:00→18:37)
[2023-07-07] MEDS: HEPARIN SODIUM,PORCINE 5,000 UNIT/ML 1 ML VIAL SQ SCH ×4 (01:00→23:00)
[2023-07-07 06:22] LABS: Glucose,Whole Blood 178 mg/dL (70-110)
[2023-07-07] MEDS: LEVOTHYROXINE 50 MCG TAB PO SCH (06:43)
[2023-07-07] MEDS: PANTOPRAZOLE 40 MG TABLET PO SCH (06:43)
[2023-07-07] MEDS: INSULIN ASPART (NovoLOG) 100 UNIT/ML VIAL SQ SCH ×4 (06:44→23:00)
[2023-07-07 07:07] LABS: HCT 32.3 % (34.0-46.0); HGB 10.8 gm/dL (11.4-16.0); MCH 32.7 pg (25.0-35.0); MCHC 33.3 g/dL (31.0-37.0); MCV 98.2 fL (80.0-100.0); Mean Platelet Volume 9.6; Platelet Count 132 k/uL (150-450); RBC 3.29 m/uL (3.80-5.40); RDW 13.1 % (11.5-15.5); WBC 9.2 k/uL (3.8-10.6)
[2023-07-07 07:23] LABS: African American GFR (CKD) >90 (>60 ml/min/1.73 sqM); Anion Gap 9 mmol/L; Blood Urea Nitrogen 16 mg/dL (7-17); Calcium 8.9 mg/dL (8.4-10.2); Carbon Dioxide 25 mmol/L (22-30); Chloride 101 mmol/L (98-107); Glucose 127 mg/dL (74-99); Non-African American GFR(CKD) 85 (>60 ml/min/1.73 sqM); Potassium 4.2 mmol/L (3.5-5.1); Sodium 135 mmol/L (137-145)
--- NOTE | 2023-07-07 07:35 | XR ---
EXAMINATION TYPE: XR chest 1V portable DATE OF EXAM: 07/07/2023 COMPARISON: 07/06/2023 HISTORY: Status post left wedge resection TECHNIQUE: Single frontal view of the chest is obtained. FINDINGS: No change in the left chest tube placement and no change in the moderate left apical pneumothorax . P ersistent mild elevation left hemidiaphragm. No left lung consolidation. The right lung is clear. Heart size is normal and the pulmonary vasculature is not congested. The osseous structures are intac t. IMPRESSION: No change in left chest tube placement and no change in the moderate left apical pneumot horax.
[2023-07-07] MEDS: metFORMIN 500 MG TAB PO SCH ×2 (09:04→22:58)
[2023-07-07] MEDS: ATORVASTATIN 40 MG TAB PO SCH (09:04)
[2023-07-07] MEDS: CHOLECALCIFEROL 25 MCG (1000 IU) TABLET PO SCH (09:09)
[2023-07-07] MEDS: IPRATROPIUM-ALBUTEROL 3 ML NEB IH SCH ×4 (09:11→21:30)
[2023-07-07] MEDS: FORMOTEROL FUMARATE 20 MCG/2 ML NEBU INHALATION SCH ×2 (09:11→21:30)
--- NOTE | 2023-07-07 09:13 | P.PN ---
Subjective Progress Note Date: 07/07/23 Principal diagnosis: Left upper lobe nodule. Previous medical history of right breast cancer 15 years ago status post chemo and radiation, previous tobacco dependence, COPD, type 2 diabetes, hyperlipidemia, hypothyroid, fatty liver with cirrhosis POD #2 bronchoscopy, left robotic-assisted thoracoscopic surgery with left upper lobe apical-posterior segmentectomy using the [employer] angiography system, mediastinal lymph node dissection, intercostal nerve blocks at 2 level The patient was seen and examined this morning sitting up in a recliner in the cardiac stepdown unit in no acute distress. She states pain is controlled on current medication regimen although does hurt when she coughs, denies shortness of breath. Remains in sinus rhythm, hemodynamically stable. Currently on room air with oxygen saturation in the low 90s. Only able to achieve 500 mL on inc entive spirometry. Chest x-ray, labs reviewed. Left sided pleural chest tube present to continuous wall suction, expiratory air leak remains present. No other new concerns. Objective - Vital Signs Vital signs: Vital Signs Temp 97.9 F 07/07/23 09:02 Pulse 90 07/07/23 09:02 Resp 18 07/07/23 09:02 BP 110/68 07/07/23 09:02 Pulse Ox 94 L 07/07/23 09:02 FiO2 Intake & Output 07/06/23 07/07/23 07/07/23 18:59 06:59 18:59 Intake Total 960 Output Total 615 210 Balance 345 -210 Intake: Oral 960 Output: Chest Tube Drainage 240 60 Chest Tube Left Anterior 240 60 Chest Urine 375 150 Other: Voiding Method Bedside Commode Toilet # Voids 1 - Exam CONSTITUTIONAL: Appears comfortable, cooperative, no acute distress RESPIRATORY: Lungs sounds diminished bilaterally. Respirations even, non labored. Currently on room air with oxygen saturation 95%. Able to achieve 500 mL on incentive spirometry. Strong cough. CARDIOVASCULAR: S1, S2 present. Regular rate and rhythm, sinus rhythm on telemetry. Palpable peripheral pulses bilaterally. No edema present GASTROINTESTINAL: Abdomen soft, nontender, nondistended. Active bowel sounds present 4 quadrants. Tolerating diet GENITOURINARY: Continues to void INTEGUMENTARY: Skin is warm and dry NEUROLOGIC: Cranial nerves II through XII intact MUSKULOSKELETAL: Able to move all extremities, strength equal bilaterally, gait normal PSYCHIATRIC: Alert and oriented to person place and time, appropriate affect, intact judgment and insight INVASIVE LINES AND TUBES: Left pleural chest tube present and connected to wall suction, intermittent air leak present with expiration, 40 mL serosanguineous drainage overnight, 100 mL in the last 24 hours - Allied health notes Allied health notes reviewed: nursing - Labs CBC & Chem 7: 07/07/23 05:41 07/07/23 05:41 Labs: Abnormal Lab Results - Last 24 Hours (Table) 06/25/23 07/06/23 07/06/23 Range/Units 11:25 11:28 16:34 RBC (3.80-5.40) m/uL Hgb (11.4-16.0) gm/dL Hct (34.0-46.0) % Plt Count (150-450) k/uL Sodium (137-145) mmol/L Glucose (74-99) mg/dL POC Glucose (mg/dL) 186 H 146 H (70-110) mg/dL Crossmatch See Detail 07/06/23 07/07/23 07/07/23 Range/Units 19:39 05:41 05:41 RBC 3.29 L (3.80-5.40) m/uL Hgb 10.8 L (11.4-16.0) gm/dL Hct 32.3 L (34.0-46.0) % Plt Count 132 L (150-450) k/uL Sodium 135 L (137-145) mmol/L Glucose 127 H (74-99) mg/dL POC Glucose (mg/dL) 202 H (70-110) mg/dL Crossmatch 07/07/23 Range/Units 06:20 RBC (3.80-5.40) m/uL Hgb (11.4-16.0) gm/dL Hct (34.0-46.0) % Plt Count (150-450) k/uL Sodium (137-145) mmol/L Glucose (74-99) mg/dL POC Glucose (mg/dL) 178 H (70-110) mg/dL Crossmatch - Imaging and Cardiology Chest x-ray: report reviewed, image reviewed Assessment and Plan Assessment: Left upper lobe nodule, status post left VATS with left upper lobe apical- posterior segmentectomy History of right breast cancer 15 years ago status post chemo and radiation Previous tobacco dependence COPD Type 2 diabetes Hyperlipidemia Hypothyroid Fatty liver with cirrhosis Plan: Continue pleural chest tube to continuous wall suction, monitor for air leak resolution, monitor drainage Encourage incentive spirometry use 10 times every hour while awake. B ronchodilators per pulmonology Will monitor daily labs and x-rays Increase activity, ambulate as tolerated GI/DVT prophylaxis Pain control with current medication regimen Continue home medications More recommendations to follow
[2023-07-07] MEDS ORDERED: bisacodyL 10 MG SUPP RECTAL PRN (10:58)
[2023-07-07 11:42] LABS: Glucose,Whole Blood 132 mg/dL (70-110)
[2023-07-07] MEDS: polyethylene glycoL 3350 17 GM POWD.PACK PO SCH (12:10)
--- NOTE | 2023-07-07 12:58 | P.PN ---
Subjective Progress Note Date: 07/07/23 Principal diagnosis: Lung nodule. Pulmonary consult dated 07/06/2023. 82-year-old female, postop day #1, status post robotically assisted left upper lobe segmentectomy, and mediastinal lymph node dissection. Done by Dr. Bajwa. The patient is seen in room 357. The patient's on room air, and without any IV fluids. She does have a left-sided chest tube leak. Clinically she will looks well. Current labs include a white count 9.5, hemoglobin 11.4, hematocrit 34, and a platelet count of 137,000. Sodium 137, potassium 4.4, chlorides 105, CO2 24, BUN 16, creatinine 0.59. Chest x-ray shows a 25-30% left-sided pneumothorax. Chest tube is in place. 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 The patient has a history of hyp erlipidemia, diabetes, and hypothyroidism. Progress note dated 07/07/2023. 82-year-old female who is postop day #2, status post robotically assisted left upper lobe segmentectomy. The patient also had a mediastinal lymph node dissection. Surgery was done by Dr. Bajwa. The patient is seen in room 357. She is currently on room air. She's not receiving any IV fluids. Today is postop day #2. Her chest tube is off suction. A chest x-ray is pending. White count 9.2, he lobe and 10.8, hematocrit 32.3, and platelet count is 132,000. Sodium 135, potassium 4.2, chlorides 101, CO2 25, BUN 16, and creatinine 0.61. Objective - Vital Signs Vital signs: Vital Signs Temp 97.9 F 07/07/23 09:02 Pulse 90 07/07/23 12:06 Resp 18 07/07/23 12:06 BP 118/69 07/07/23 12:06 Pulse Ox 96 07/07/23 12:06 FiO2 Intake & Output 07/06/23 07/07/23 07/07/23 18:59 06:59 18:59 Intake Total 960 Output Total 615 210 Balance 345 -210 Intake: Oral 960 Output: Chest Tube Drainage 240 60 Chest Tube Left Anterior 240 60 Chest Urine 375 150 Other: Voiding Method Bedside Commode Toilet Toilet # Voids 1 1 - Exam No acute distress, oriented 3. Currently on room air. Saturations 96 %. HEENT examination is grossly unremarkable. Mucous membranes are moist. No oral lesions. Neck supple. Full range of motion. No adenopathy thyromegaly or neck vein distention. Cardiovascular examination reveals regular rhythm rate. S1-S2 normal. No S3 or S4. No discernible murmur noted. Heart rate 90 bpm. Lungs reveal mostly clear breath sounds. Scattered rhonchi are noted. The patient has a hard time taking a deep breath. No wheezes. Saturations are 96 % on room air. Left-sided chest tube noted. Abdomen soft bowel sounds are heard. No masses or tenderness. Extremities are intact. No cyanosis clubbing or edema. Skin is without rash or lesion. Neurologic examination is brief but nonfocal. - Labs CBC & Chem 7: 07/07/23 05:41 07/07/23 05:41 Labs: Abnormal Lab Results - Last 24 Hours (Table) 06/25/23 07/06/23 07/06/23 Range/Units 11:25 16:34 19:39 RBC (3.80-5.40) m/uL Hgb (11.4-16.0) gm/dL Hct (34.0-46.0) % Plt Count (150-450) k/uL Sodium (137-145) mmol/L Glucose (74-99) mg/dL POC Glucose (mg/dL) 146 H 202 H (70-110) mg/dL Crossmatch See Detail 07/07/23 07/07/23 07/07/23 Range/Units 05:41 05:41 06:20 RBC 3.29 L (3.80-5.40) m/uL Hgb 10.8 L (11.4-16.0) gm/dL Hct 32.3 L (34.0-46.0) % Plt Count 132 L (150-450) k/uL Sodium 135 L (137-145) mmol/L Glucose 127 H (74-99) mg/dL POC Glucose (mg/dL) 178 H (70-110) mg/dL Crossmatch 07/07/23 Range/Units 11:39 RBC (3.80-5.40) m/uL Hgb (11.4-16.0) gm/dL Hct (34.0-46.0) % Plt Count (150-450) k/uL Sodium (137-145) mmol/L Glucose (74-99) mg/dL POC Glucose (mg/dL) 132 H (70-110) mg/dL Crossmatch Assessment and Plan Assessment: Postop day #2, status post robotically-assisted left upper lobe segmentectomy, and mediastinal lymph node dissection. 2.5 cm left upper lobe pulmonary nodule, with a negative PET CT fusion study, and biopsy, that was nondiagnostic. History of diabetes mellitus. History of hyperlipidemia. History of hypothyroidism. Plan: Plan dated 07/06/2023. The patient is postop day #1, status post robotically assisted left upper lobe segmentectomy, for a pulmonary nodule, 2.5 cm in size, which has recently increased in size. PET/CT fusion study was negative. Biopsies were inconclusive. The patient's currently on room air. No IV fluids. Left chest tube is in place with a leak. Labs, x-rays, and medications are reviewed. We will continue to follow make recommendations along the way. Plan dated 07/07/2023. The patient is postoperative day #12. She is status post robotically assisted left upper lobe segmentectomy, and mediastinal lymph node dissection, for an enlarging pulmonary nodule. The patient's PET/CT fusion study was negative. Her biopsies were inconclusive. The patient is not requiring any supplemental oxygen. The patient is not on any IV fluids. We will continue to follow make recommendations along the road. Prognosis is thought to be generally good. Time with Patient: Less than 30
--- NOTE | 2023-07-07 15:25 | XR ---
EXAMINATION TYPE: XR chest 1V portable DATE OF EXAM: 07/07/2023 COMPARISON: 07/07/2023 HISTORY: Status post left lung wedge resection. TECHNIQUE: Single frontal view of the chest is obtained. FINDINGS: There is a left chest tube unchanged in position. There is approximate 30% left apical pneumothorax e ssentially unchanged compared to previous. The right lung is clear. The heart and pulmonary vasculature are normal. The osseous structures are intact IMPRESSION: Left chest tube with stable approximately 30% left apical pneumothorax.
[2023-07-07] MEDS: traMADol 50 MG TAB PO PRN ×2 (16:36→22:57)
[2023-07-07 16:47] LABS: Glucose,Whole Blood 135 mg/dL (70-110)
[2023-07-07 19:32] LABS: Glucose,Whole Blood 210 mg/dL (70-110)
[2023-07-07] MEDS: SENNOSIDES-DOCUSATE SODIUM 1 EACH TAB PO SCH (22:57)
[2023-07-07] MEDS: MAGNESIUM OXIDE 400 MG TAB PO SCH (22:57)
[2023-07-07] MEDS: MELATONIN 5 MG TABLET PO PRN (22:58)
[2023-07-08] MEDS: KETOROLAC 15 MG/ML 1 ML VIAL IVP SCH ×5 (04:10→23:48)
[2023-07-08 06:08] LABS: Glucose,Whole Blood 170 mg/dL (70-110)
[2023-07-08] MEDS: INSULIN ASPART (NovoLOG) 100 UNIT/ML VIAL SQ SCH ×4 (06:57→21:48)
[2023-07-08] MEDS: PANTOPRAZOLE 40 MG TABLET PO SCH (06:57)
[2023-07-08] MEDS: LEVOTHYROXINE 50 MCG TAB PO SCH (06:59)
[2023-07-08] MEDS: IPRATROPIUM-ALBUTEROL 3 ML NEB IH SCH ×4 (08:18→19:42)
[2023-07-08] MEDS: FORMOTEROL FUMARATE 20 MCG/2 ML NEBU INHALATION SCH ×2 (08:18→19:42)
[2023-07-08] MEDS: polyethylene glycoL 3350 17 GM POWD.PACK PO SCH (08:46)
[2023-07-08] MEDS: ATORVASTATIN 40 MG TAB PO SCH (08:46)
[2023-07-08] MEDS: HEPARIN SODIUM,PORCINE 5,000 UNIT/ML 1 ML VIAL SQ SCH ×3 (08:46→23:46)
[2023-07-08] MEDS: CHOLECALCIFEROL 25 MCG (1000 IU) TABLET PO SCH (08:46)
[2023-07-08] MEDS: metFORMIN 500 MG TAB PO SCH ×2 (08:46→20:26)
[2023-07-08 08:48] LABS: HCT 35.1 % (34.0-46.0); HGB 11.6 gm/dL (11.4-16.0); MCH 32.6 pg (25.0-35.0); MCHC 33.2 g/dL (31.0-37.0); MCV 98.1 fL (80.0-100.0); Mean Platelet Volume 8.3; Platelet Count 171 k/uL (150-450); RBC 3.58 m/uL (3.80-5.40); RDW 12.7 % (11.5-15.5); WBC 7.3 k/uL (3.8-10.6)
--- NOTE | 2023-07-08 08:49 | XR ---
EXAMINATION TYPE: XR chest 2V DATE OF EXAM: 07/08/2023 COMPARISON: 07/07/2023 HISTORY: Follow-up left pneumothorax TECHNIQUE Frontal and lateral views of the chest are obtained. FINDINGS: There is a left chest tube tip of which is in the left lung apex. There is a persistent 25-30% pneumothorax unchanged compared to previous. There is a small amount sub cutaneous emphysema near the chest tube insertion site in the lateral chest wall. The right lung remains clear. Heart size normal and the vasculature is not congested. The osseous structures are intact. IMPRESSION: 1. No change in left chest tube. 2. No change in the 25-30% left apical pneumothorax.
--- NOTE | 2023-07-08 08:52 | P.PN ---
Subjective Progress Note Date: 07/08/23 Principal diagnosis: Left upper lobe nodule. Previous medical history of right breast cancer 15 years ago status post chemo and radiation, previous tobacco dependence, COPD, type 2 diabetes, hyperlipidemia, hypothyroid, fatty liver with cirrhosis POD #3 bronchoscopy, left robotic-assisted thoracoscopic surgery with left upper lobe apical-posterior segmentectomy using the [employer] angiography system, mediastinal lymph node dissection, intercostal nerve blocks at 2 level The patient was seen and examined this morning sitting up in a recliner in the cardiac stepdown unit in no acute distress. She states pain is controlled on current medication regimen, denies shortness of breath. Remains in sinus rhythm, hemodynamically stable. Currently on room air with oxygen saturation in the low 90s. Only able to achieve 750 mL on incentive spirometry. Chest x-ray, labs reviewed. Left sided pleural chest tube present to waterseal, expiratory air leak remains present although less aggressive than yesterday. Patient has been ambulatory without difficulty. No other new concerns. Objective - Vital Signs Vital signs: Vital Signs Temp 98.3 F 07/08/23 08:32 Pulse 90 07/08/23 08:32 Resp 18 07/08/23 08:32 BP 125/70 07/08/23 08:32 Pulse Ox 95 07/08/23 08:32 FiO2 Intake & Output 07/07/23 07/08/23 07/08/23 18:59 06:59 18:59 Intake Total 360 180 Output Total 500 Balance 360 -500 180 Intake: Oral 360 180 Output: Chest Tube Drainage 500 Chest Tube Left Anterior 500 Chest Other: Voiding Method Toilet Toilet # Voids 1 1 1 - Exam CONSTITUTIONAL: Appears comfortable, cooperative, no acute distress RESPIRATORY: Lungs sounds diminished bilaterally. Respirations even, nonlabored. Currently on room air with oxygen saturation 93%. Able to achieve 750 mL on incentive spirometry. Strong cough. CARDIOVASCULAR: S1, S2 present. Regular rate and rhythm, sinus rhythm on telemetry. Palpable peripheral pulses bilaterally. No edema present GASTROINTESTINAL: Abdomen soft, nontender, nondistended. Active bowel sounds present 4 quadrants. Tolerating diet GENITOURINARY: Continues to void INTEGUMENTARY: Skin is warm and dry NEUROLOGIC: Cranial nerves II through XII intact MUSKULOSKELETAL: Able to move all extremities, strength equal bilaterally, gait normal PSYCHIATRIC: Alert and oriented to person place and time, appropriate affect, intact judgment and insight INVASIVE LINES AND TUBES: Left pleural chest tube present and connected to wall suction, intermittent air leak present with expiration, 50 mL serosanguineous drainage overnight, 300 mL in the last 24 hours - Labs CBC & Chem 7: 07/08/23 08:09 07/08/23 08:09 Labs: Abnormal Lab Results - Last 24 Hours (Table) 07/07/23 07/07/23 07/07/23 Range/Units 11:39 16:46 19:30 RBC (3.80-5.40) m/uL POC Glucose (mg/dL) 132 H 135 H 210 H (70-110) mg/dL 07/08/23 07/08/23 Range/Units 06:06 08:09 RBC 3.58 L (3.80-5.40) m/uL POC Glucose (mg/dL) 170 H (70-110) mg/dL - Imaging and Cardiology Chest x-ray: report reviewed, image reviewed Assessment and Plan Assessment: Left upper lobe nodule, status post left VATS with left upper lobe apical- posterior segmentectomy History of right breast cancer 15 years ago status post chemo and radiation Previous tobacco dependence COPD Type 2 diabetes Hyperlipidemia Hypothyroid Fatty liver with cirrhosis Plan: Continue pleural chest tube to waterseal, monitor for air leak resolution, monitor drainage Encourage incentive spirometry use 10 times every hour while awake. Bronchodilators per pulmonology Will monitor daily labs and x-rays Increase activity, ambulate as tolerated GI/DVT prophylaxis Pain control with current medication regimen Continue home medications More recommendations to follow
[2023-07-08 09:43] LABS: African American GFR (CKD) >90 (>60 ml/min/1.73 sqM); Anion Gap 9 mmol/L; Blood Urea Nitrogen 14 mg/dL (7-17); Calcium 9.5 mg/dL (8.4-10.2); Carbon Dioxide 25 mmol/L (22-30); Chloride 100 mmol/L (98-107); Glucose 185 mg/dL (74-99); Non-African American GFR(CKD) 83 (>60 ml/min/1.73 sqM); Potassium 5.1 mmol/L (3.5-5.1); Sodium 134 mmol/L (137-145)
[2023-07-08 11:33] LABS: Glucose,Whole Blood 134 mg/dL (70-110)
--- NOTE | 2023-07-08 13:24 | P.PN ---
Subjective Progress Note Date: 07/08/23 Principal diagnosis: Lung nodule. Pulmonary consult dated 07/06/2023. 82-year-old female, postop day #1, status post robotically assisted left upper lobe segmentectomy, and mediastinal lymph node dissection. Done by Dr. Bajwa. The patient is seen in room 357. The patient's on room air, and without any IV fluids. She does have a left-sided chest tube leak. Clinically she will looks well. Current labs include a white count 9.5, hemoglobin 11.4, hematocrit 34, and a platelet count of 137,000. Sodium 137, potassium 4.4, chlorides 105, CO2 24, BUN 16, creatinine 0.59. Chest x-ray shows a 25-30% left-sided pneumothorax. Chest tube is in place. 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 The patient has a history of hyp erlipidemia, diabetes, and hypothyroidism. Progress note dated 07/07/2023. 82-year-old female who is postop day #2, status post robotically assisted left upper lobe segmentectomy. The patient also had a mediastinal lymph node dissection. Surgery was done by Dr. Bajwa. The patient is seen in room 357. She is currently on room air. She's not receiving any IV fluids. Today is postop day #2. Her chest tube is off suction. A chest x-ray is pending. White count 9.2, he lobe and 10.8, hematocrit 32.3, and platelet count is 132,000. Sodium 135, potassium 4.2, chlorides 101, CO2 25, BUN 16, and creatinine 0.61. Progress note dated 07/08/2023. 82-year-old female, postop day #3, status post robotically assisted left upper lobe segmentectomy. The patient also had a mediastinal lymph node dissection. Surgery was done by Dr. Bajwa. The patient is seen today in room 357. Currently on room air. She's not receiving any IV fluids. She has a significant leak from her left-sided chest tube. White count 7.3, with a normal hemoglobin, hematocrit, and platelet count. Sodium 134, potassium 5.1, chlorides 100, CO2 25, BUN 14, creatinine 0.66. Chest x-ray shows a left-sided chest tube, and about a 25% left apical pneumothorax. Objective - Vital Signs Vital signs: Vital Signs Temp 98.3 F 07/08/23 08:32 Pulse 83 07/08/23 12:07 Resp 18 07/08/23 12:07 BP 126/70 07/08/23 12:07 Pulse Ox 96 07/08/23 12:07 FiO2 Intake & Output 07/07/23 07/08/23 07/08/23 18:59 06:59 18:59 Intake Total 360 180 Output Total 500 Balance 360 -500 180 Intake: Oral 360 180 Output: Chest Tube Drainage 500 Chest Tube Left Anterior 500 Chest Other: Voiding Method Toilet Toilet Toilet # Voids 1 1 1 - Exam No acute distress, oriented 3. Currently on room air. Saturations 95 %. HEENT examination is grossly unremarkable. Mucous membranes are moist. No oral lesions. Neck supple. Full range of motion. No adenopathy thyromegaly or neck vein distention. Cardiovascular examination reveals regular rhythm rate. S1-S2 normal. No S3 or S4. No discernible murmur noted. Heart rate 90 bpm. Lungs reveal mostly clear breath sounds. Scattered rhonchi are noted. The patient has a hard time taking a deep breath. No wheezes. Saturations are 95 % on room air. Left-sided chest tube noted. Abdomen soft bowel sounds are heard. No masses or tenderness. Extremities are intact. No cyanosis clubbing or edema. Skin is without rash or lesion. Neurologic examination is brief but nonfocal. - Labs CBC & Chem 7: 07/08/23 08:09 07/08/23 08:09 Labs: Abnormal Lab Results - Last 24 Hours (Table) 07/07/23 07/07/23 07/08/23 Range/Units 16:46 19:30 06:06 RBC (3.80-5.40) m/uL Sodium (137-145) mmol/L Glucose (74-99) mg/dL POC Glucose (mg/dL) 135 H 210 H 170 H (70-110) mg/dL 07/08/23 07/08/23 07/08/23 Range/Units 08:09 08:09 11:32 RBC 3.58 L (3.80-5.40) m/uL Sodium 134 L (137-145) mmol/L Glucose 185 H (74-99) mg/dL POC Glucose (mg/dL) 134 H (70-110) mg/dL Assessment and Plan Assessment: Postop day #3, status post robotically-assisted left upper lobe segmentectomy, and mediastinal lymph node dissection. 2.5 cm left upper lobe pulmonary nodule, with a negative PET CT fusion study, and biopsy, that was nondiagnostic. History of diabetes mellitus. History of hyperlipidemia. History of hypothyroidism. Plan: Plan dated 07/06/2023. The patient is postop day #1, status post robotically assisted left upper lobe segmentectomy, for a pulmonary nodule, 2.5 cm in size, which has recently increased in size. PET/CT fusion study was negative. Biopsies were inconclusive. The patient's currently on room air. No IV fluids. Left chest tube is in place with a leak. Labs, x-rays, and medications are reviewed. We will continue to follow make recommendations along the way. Plan dated 07/07/2023. The patient is postoperative day #12. She is status post robotically assisted left upper lobe segmentectomy, and mediastinal lymph node dissection, for an enlarging pulmonary nodule. The patient's PET/CT fusion study was negative. Her biopsies were inconclusive. The patient is not requiring any supplemental oxygen. The patient is not on any IV fluids. We will continue to follow make recommendations along the road. Prognosis is thought to be generally good. Plan dated 07/08/2023. Today is postop day #3. The patient had a robotically assisted left upper lobe segmentectomy and mediastinal lymph node dissection, by Dr. Bajwa. The patient still has a significant air leak on that left side. Chest x-ray shows about 25% apical pneumothorax. The patient is not requiring any supplemental oxygen, and is not receiving any IV fluids. Additional recommendations and suggestions are forthcoming. Prognosis is thought to be generally good. Time with Patient: Less than 30
[2023-07-08] MEDS: traMADol 50 MG TAB PO PRN ×2 (15:30→21:48)
[2023-07-08 16:20] LABS: Glucose,Whole Blood 136 mg/dL (70-110)
[2023-07-08] MEDS: MAGNESIUM OXIDE 400 MG TAB PO SCH (20:26)
[2023-07-08] MEDS: SENNOSIDES-DOCUSATE SODIUM 1 EACH TAB PO SCH (20:26)
[2023-07-08 20:52] LABS: Glucose,Whole Blood 188 mg/dL (70-110)
[2023-07-08] MEDS: MELATONIN 5 MG TABLET PO PRN (21:48)
[2023-07-09] MEDS: LEVOTHYROXINE 50 MCG TAB PO SCH (05:32)
[2023-07-09] MEDS: KETOROLAC 15 MG/ML 1 ML VIAL IVP SCH ×4 (05:32→23:54)
[2023-07-09] MEDS: traMADol 50 MG TAB PO PRN ×3 (05:32→19:44)
[2023-07-09 06:15] LABS: Glucose,Whole Blood 128 mg/dL (70-110)
[2023-07-09] MEDS: INSULIN ASPART (NovoLOG) 100 UNIT/ML VIAL SQ SCH ×4 (06:28→20:50)
[2023-07-09] MEDS: PANTOPRAZOLE 40 MG TABLET PO SCH (06:31)
[2023-07-09] MEDS: IPRATROPIUM-ALBUTEROL 3 ML NEB IH SCH ×4 (08:01→21:10)
[2023-07-09] MEDS: FORMOTEROL FUMARATE 20 MCG/2 ML NEBU INHALATION SCH ×2 (08:01→21:10)
--- NOTE | 2023-07-09 08:29 | P.PN ---
Subjective Progress Note Date: 07/09/23 Principal diagnosis: Left upper lobe nodule. Previous medical history of right breast cancer 15 years ago status post chemo and radiation, previous tobacco dependence, COPD, type 2 diabetes, hyperlipidemia, hypothyroid, fatty liver with cirrhosis POD #4 bronchoscopy, left robotic-assisted thoracoscopic surgery with left upper lobe apical-posterior segmentectomy using the [employer] angiography system, mediastinal lymph node dissection, intercostal nerve blocks at 2 level The patient was seen and examined this morning sitting up in a recliner in the cardiac stepdown unit in no acute distress. She states pain is controlled on current medication regimen, denies shortness of breath. Remains in sinus rhythm, hemodynamically stable. Currently on room air with oxygen saturation in the mid 90s. Only able to achieve 750 mL on incentive spirometry. Chest x-ray, labs reviewed. Left sided pleural chest tube continues to waterseal, air leak remains present with coughing only. Patient has been ambulatory without difficulty. No other new concerns. Objective - Vital Signs Vital signs: Vital Signs Temp 97.6 F 07/09/23 04:00 Pulse 80 07/09/23 04:00 Resp 18 07/09/23 04:00 BP 124/72 07/09/23 04:00 Pulse Ox 96 07/09/23 04:00 FiO2 Intake & Output 07/08/23 07/09/23 07/09/23 18:59 06:59 18:59 Intake Total 540 Output Total 260 Balance 540 -260 Intake: Oral 540 Output: Chest Tube Drainage 100 Chest Tube Left Anterior 100 Chest Drainage 60 Right Chest 60 Urine 100 Other: Voiding Method Toilet Toilet # Voids 1 0 - Exam CONSTITUTIONAL: Appears comfortable, cooperative, no acute distress RESPIRATORY: Lungs sounds diminished bilaterally. Respirations even, nonlabored. Currently on room air with oxygen saturation 96%. Able to achieve 750 mL on incentive spirometry. Strong cough. CARDIOVASCULAR: S1, S2 present. Regular rate and rhythm, sinus rhythm on telemetry. Palpable peripheral pulses bilaterally. No edema present GASTROINTESTINAL: Abdomen soft, nontender, nondistended. Active bowel sounds present 4 quadrants. Tolerating diet GENITOURINARY: Continues to void INTEGUMENTARY: Skin is warm and dry NEUROLOGIC: Cranial nerves II through XII intact MUSKULOSKELETAL: Able to move all extremities, strength equal bilaterally, gait normal PSYCHIATRIC: Alert and oriented to person place and time, appropriate affect, intact judgment and insight INVASIVE LINES AND TUBES: Left pleural chest tube present to water seal, intermittent air leak present with coughing, 150 mL serosanguineous drainage in the last 24 hours - Allied health notes Allied health notes reviewed: nursing - Labs CBC & Chem 7: 07/08/23 08:09 07/08/23 08:09 Labs: Abnormal Lab Results - Last 24 Hours (Table) 07/08/23 07/08/23 07/08/23 Range/Units 08:09 08:09 11:32 RBC 3.58 L (3.80-5.40) m/uL Sodium 134 L (137-145) mmol/L Glucose 185 H (74-99) mg/dL POC Glucose (mg/dL) 134 H (70-110) mg/dL 07/08/23 07/08/23 07/09/23 Range/Units 16:17 20:51 06:11 RBC (3.80-5.40) m/uL Sodium (137-145) mmol/L Glucose (74-99) mg/dL POC Glucose (mg/dL) 136 H 188 H 128 H (70-110) mg/dL - Imaging and Cardiology Chest x-ray: image reviewed Assessment and Plan Assessment: Left upper lobe nodule, status post left VATS with left upper lobe apical- posterior segmentectomy History of right breast cancer 15 years ago status post chemo and radiation Previous tobacco dependence COPD Type 2 diabetes Hyperlipidemia Hypothyroid Fatty liver with cirrhosis Plan: Continue pleural chest tube to waterseal, monitor for air leak resolution, monitor drainage Encourage incentive spirometry use 10 times every hour while awake. Bronchodilators per pulmonology Will monitor daily labs and x-rays Increase activity, ambulate as tolerated GI/DVT prophylaxis Pain control with current medication regimen Continue home medications More recommendations to follow
--- NOTE | 2023-07-09 08:32 | XR ---
EXAMINATION TYPE: XR chest 2V DATE OF EXAM: 07/09/2023 COMPARISON: 07/08/2023 TECHNIQUE: PA and lateral views submitted. HISTORY: Postlung resection FINDINGS: A left-sided chest tube with its left-sided subcutaneous emphysema. Vague nodule in the midlung on th e left. No sizable pneumothorax. Subsegmental atelectasis noted. Prominence of left perihilar region stable. Right lung clear. IMPRESSION: 1. Left-sided chest tube with no sizable pneumothorax.
[2023-07-09] MEDS: CHOLECALCIFEROL 25 MCG (1000 IU) TABLET PO SCH (08:40)
[2023-07-09] MEDS: HEPARIN SODIUM,PORCINE 5,000 UNIT/ML 1 ML VIAL SQ SCH ×3 (08:40→23:54)
[2023-07-09] MEDS: ATORVASTATIN 40 MG TAB PO SCH (08:40)
[2023-07-09] MEDS: polyethylene glycoL 3350 17 GM POWD.PACK PO SCH (08:40)
[2023-07-09] MEDS: metFORMIN 500 MG TAB PO SCH ×2 (08:40→19:46)
[2023-07-09 11:39] LABS: Glucose,Whole Blood 101 mg/dL (70-110)
--- NOTE | 2023-07-09 13:12 | P.PN ---
Subjective Progress Note Date: 07/09/23 82-year-old female, postop day #1, status post robotically assisted left upper lobe segmentectomy, and mediastinal lymph node dissection. Done by Dr. Bajwa. The patient is seen in room 357. The patient's on room air, and without any IV fluids. She does have a left-sided chest tube leak. Clinically she will looks well. Current labs include a white count 9.5, hemoglobin 11.4, hematocrit 34, and a pl atelet count of 137,000. Sodium 137, potassium 4.4, chlorides 105, CO2 24, BUN 16, creatinine 0.59. Chest x-ray shows a 25-30% left-sided pneumothorax. Chest tube is in place. 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 The patient has a history of hyperlipidemia, diabetes, and hypothyroidism. Progress note dated 07/07/2023. 82-year-old female who is postop day #2, status post robotically assisted left upper lobe segmentectomy. The patient also had a mediastinal lymph node dissection. Surgery was done by Dr. Bajwa. The patient is seen in room 357. She is currently on room air. She's not receiving any IV fluids. Today is postop day #2. Her chest tube is off suction. A chest x-ray is pending. White count 9.2, he lobe and 10.8, hematocrit 32.3, and platelet count is 132,000. Sodium 135, potassium 4.2, chlorides 101, CO2 25, BUN 16, and creatinine 0.61. Progress note dated 07/08/2023. 82-year-old female, postop day #3, status post robotically assisted left upper lobe segmentectomy. The patient also had a mediastinal lymph node dissection. Surgery was done by Dr. Bajwa. The patient is seen today in room 357. Currently on room air. She's not receiving any IV fluids. She has a significant leak from her left-sided chest tube. White count 7.3, with a normal hemoglobin, hematocrit, and platelet count. Sodium 134, potassium 5.1, chlorides 100, CO2 25, BUN 14, creatinine 0.66. Chest x-ray shows a left-sided chest tube, and about a 25% left apical pneumothorax. On today's evaluation of 2022, the patient is postop day #4. The patient underwent a robotic-assisted left upper segmentectomy. Patient also underwent a lymph node dissection. Overall, the patient is doing well. No specific complaints. She continues to have minimal amount of air leak with coughing. Output from the chest tube is minimal at this point in time. Outpatient medications have been resumed. No issues with pain control. She is using incentive spirometer. The patient has no other complaints otherwise for now. No nausea. No vomiting. No diarrhea. No abdominal pain. The chest x-ray from today shows no evidence of any pneumothorax, left-sided chest tube is in place and there is a sizable pneumothorax. Objective - Vital Signs Vital signs: Vital Signs Temp 98.3 F 07/09/23 08:27 Pulse 86 07/09/23 10:31 Resp 18 07/09/23 10:31 BP 114/77 07/09/23 08:27 Pulse Ox 93 L 07/09/23 08:27 FiO2 Intake & Output 07/08/23 07/09/23 07/09/23 18:59 06:59 18:59 Intake Total 540 Output Total 260 Balance 540 -260 Intake: Oral 540 Output: Chest Tube Drainage 100 Chest Tube Left Anterior 100 Chest Drainage 60 Right Chest 60 Urine 100 Other: Voiding Method Toilet Toilet Toilet # Voids 1 0 - Exam CONSTITUTIONAL: Appears comfortable, cooperative, no acute distress RESPIRATORY: Lungs sounds diminished bilaterally. Respirations even, nonlabored. Currently on room air with oxygen saturation 96%. Able to achieve 750 mL on incentive spirometry. Strong cough. CARDIOVASCULAR: S1, S2 present. Regular rate and rhythm, sinus rhythm on telemetry. Palpable peripheral pulses bilaterally. No edema present GASTROINTESTINAL: Abdomen soft, nontender, nondistended. Active bowel sounds present 4 quadrants. Tolerating diet GENITOURINARY: Continues to void INTEGUMENTARY: Skin is warm and dry NEUROLOGIC: Cranial nerves II through XII intact MUSKULOSKELETAL: Able to move all extremities, strength equal bilaterally, gait normal PSYCHIATRIC: Alert and oriented to person place and time, appropriate affect, intact judgment and insight INVASIVE LINES AND TUBES: Left pleural chest tube present to water seal, intermittent air leak present with coughing, 150 mL serosanguineous drainage in the last 24 hours - Labs CBC & Chem 7: 07/08/23 08:09 10/01/23 08:09 Labs: Abnormal Lab Results - Last 24 Hours (Table) 07/08/23 07/08/23 07/08/23 Range/Units 11:32 16:17 20:51 POC Glucose (mg/dL) 134 H 136 H 188 H (70-110) mg/dL 07/09/23 Range/Units 06:11 POC Glucose (mg/dL) 128 H (70-110) mg/dL Assessment and Plan Plan: Postop day #4, status post robotically-assisted left upper lobe segmentectomy, and mediastinal lymph node dissection. The patient continues to have a left- sided chest tube in place. Minimal amount of air leak with cough and episodes. Acute hypoxic respiratory failure secondary to above, improving, the patient is currently on room air oxygen 2.5 cm left upper lobe pulmonary nodule, with a negative PET CT fusion study, and biopsy, that was nondiagnostic. History of diabetes mellitus. History of hyperlipidemia. History of hypothyroidism. Plan: Patient is currently on room and oxygen Encourage use of incentive spirometer Will likely need to remove the chest tube the next 24 hours Repeat chest x-ray in the morning Outpatient medications have been resumed We'll continue to follow
[2023-07-09 16:34] LABS: Glucose,Whole Blood 121 mg/dL (70-110)
[2023-07-09] MEDS: SENNOSIDES-DOCUSATE SODIUM 1 EACH TAB PO SCH (19:45)
[2023-07-09] MEDS: MAGNESIUM OXIDE 400 MG TAB PO SCH (19:46)
[2023-07-09] MEDS: MELATONIN 5 MG TABLET PO PRN (19:49)
[2023-07-09 20:19] LABS: Glucose,Whole Blood 208 mg/dL (70-110)
[2023-07-10] MEDS: traMADol 50 MG TAB PO PRN ×3 (05:12→22:02)
[2023-07-10 06:10] LABS: Glucose,Whole Blood 125 mg/dL (70-110)
[2023-07-10] MEDS: INSULIN ASPART (NovoLOG) 100 UNIT/ML VIAL SQ SCH ×4 (06:18→20:26)
[2023-07-10] MEDS: LEVOTHYROXINE 50 MCG TAB PO SCH (06:21)
[2023-07-10] MEDS: PANTOPRAZOLE 40 MG TABLET PO SCH (06:21)
[2023-07-10] MEDS: KETOROLAC 15 MG/ML 1 ML VIAL IVP SCH ×2 (06:22→12:28)
[2023-07-10] MEDS: IPRATROPIUM-ALBUTEROL 3 ML NEB IH SCH ×4 (08:41→21:28)
[2023-07-10] MEDS: FORMOTEROL FUMARATE 20 MCG/2 ML NEBU INHALATION SCH ×2 (08:42→21:28)
[2023-07-10] MEDS: ACETAMINOPHEN TAB 325 MG TAB PO PRN ×2 (09:07→23:41)
[2023-07-10] MEDS: metFORMIN 500 MG TAB PO SCH ×2 (09:09→20:24)
[2023-07-10] MEDS: HEPARIN SODIUM,PORCINE 5,000 UNIT/ML 1 ML VIAL SQ SCH ×3 (09:10→23:43)
[2023-07-10] MEDS: ATORVASTATIN 40 MG TAB PO SCH (09:10)
[2023-07-10] MEDS: polyethylene glycoL 3350 17 GM POWD.PACK PO SCH (09:10)
--- NOTE | 2023-07-10 09:11 | XR ---
EXAMINATION TYPE: XR chest 2V DATE OF EXAM: 07/10/2023 COMPARISON: 07/09/2023 TECHNIQUE: PA and lateral views submitted. HISTORY: Follow-up pneumothorax FINDINGS: Subcutaneous air is seen and there is right lower lobe consolidation with small effusion. There may b e a tiny 5% left-sided pneumothorax. Air along the left lung base may be related to the pneumothorax rather than a small amount of free intraperitoneal air. Right lung clear. Heart size normal. Atherosclerotic change aorta. Nodular prominence of left hilum m ost finding suggestive of prior surgery. Bilateral AC joint arthropathy. IMPRESSION: 1. Approximate 5% left-sided pneumothorax. Lucency adjacent to the left hemidiaphragm could be evalua ryan with a dedicated abdominal series to determine if this is related to the pneumothorax or small am ount of air within the abdomen. Correlate clinically
[2023-07-10] MEDS: CHOLECALCIFEROL 25 MCG (1000 IU) TABLET PO SCH (09:12)
--- NOTE | 2023-07-10 10:51 | P.PN ---
Subjective Progress Note Date: 07/10/23 Principal diagnosis: Left upper lobe nodule. Previous medical history of right breast cancer 15 years ago status post chemo and radiation, previous tobacco dependence, COPD, type 2 diabetes, hyperlipidemia, hypothyroid, fatty liver with cirrhosis POD #5 bronchoscopy, left robotic-assisted thoracoscopic surgery with left upper lobe apical-posterior segmentectomy using the [employer] angiography system, mediastinal lymph node dissection, intercostal nerve blocks at 2 level The patient was seen and examined this morning sitting up in a recliner in the cardiac stepdown unit in no acute distress. She states pain is controlled on current medication regimen, denies shortness of breath. Remains in sinus rhythm, hemodynamically stable. Currently on room air with oxygen saturation in the high 90s. Able to achieve 1000 mL on incentive spirometry. Chest x-ray, labs reviewed. Left sided pleural chest tube continues to waterseal, air leak remains present with forceful coughing only. Patient has been ambulatory without difficulty. No other new concerns. Objective - Vital Signs Vital signs: Vital Signs Temp 97.5 F L 07/10/23 08:00 Pulse 84 07/10/23 09:03 Resp 17 07/10/23 08:00 BP 118/54 07/10/23 08:00 Pulse Ox 97 07/10/23 08:00 FiO2 Intake & Output 07/09/23 07/10/23 07/10/23 18:59 06:59 18:59 Intake Total 480 240 110 Output Total 170 Balance 480 70 110 Intake: Oral 480 240 110 Output: Chest Tube Drainage 170 Chest Tube Left Anterior 170 Chest Other: Voiding Method Toilet Toilet Toilet # Voids 2 1 - Exam CONSTITUTIONAL: Appears comfortable, cooperative, no acute distress RESPIRATORY: Lungs sounds diminished bilaterally. Respirations even, no nlabored. Currently on room air with oxygen saturation 97%. Able to achieve 1000 mL on incentive spirometry. Strong cough. CARDIOVASCULAR: S1, S2 present. Regular rate and rhythm, sinus rhythm on telemetry. Palpable peripheral pulses bilaterally. No edema present GASTROINTESTINAL: Abdomen soft, nontender, nondistended. Active bowel sounds present 4 quadrants. Tolerating diet GENITOURINARY: Continues to void INTEGUMENTARY: Skin is warm and dry NEUROLOGIC: Cranial nerves II through XII intact MUSKULOSKELETAL: Able to move all extremities, strength equal bilaterally, gait normal PSYCHIATRIC: Alert and oriented to person place and time, appropriate affect, intact judgment and insight INVASIVE LINES AND TUBES: Left pleural chest tube present to water seal, intermittent air leak present with forceful coughing, 250 mL serosanguineous drainage in the last 24 hours - Allied health notes Allied health notes reviewed: nursing - Labs CBC & Chem 7: 07/08/23 08:09 07/08/23 08:09 Labs: Abnormal Lab Results - Last 24 Hours (Table) 07/09/23 07/09/23 07/10/23 Range/Units 16:33 20:15 06:09 POC Glucose (mg/dL) 121 H 208 H 125 H (70-110) mg/dL - Imaging and Cardiology Chest x-ray: report reviewed, image reviewed Assessment and Plan Assessment: Left upper lobe nodule, status post left VATS with left upper lobe apical- posterior segmentectomy History of right breast cancer 15 years ago status post chemo and radiation Previous tobacco dependence COPD Type 2 diabetes Hyperlipidemia Hypothyroid Fatty liver with cirrhosis Plan: Chest tube clamped, will repeat CXR at 2 pm and make decision on removal vs leaving on water seal for another 24 hours Encourage incentive spirometry use 10 times every hour while awake. Bronchodilators per pulmonology Will monitor daily labs and x-rays Increase activity, ambulate as tolerated GI/DVT prophylaxis Pain control with current medication regimen Continue home medications More recommendations to follow
[2023-07-10 11:13] LABS: Glucose,Whole Blood 186 mg/dL (70-110)
--- NOTE | 2023-07-10 12:34 | P.PN ---
Subjective Progress Note Date: 07/10/23 82-year-old female, postop day #1, status post robotically assisted left upper lobe segmentectomy, and mediastinal lymph node dissection. Done by Dr. Bajwa. The patient is seen in room 357. The patient's on room air, and without any IV fluids. She does have a left-sided chest tube leak. Clinically she will looks well. Current labs include a white count 9.5, hemoglobin 11.4, hematocrit 34, and a pl atelet count of 137,000. Sodium 137, potassium 4.4, chlorides 105, CO2 24, BUN 16, creatinine 0.59. Chest x-ray shows a 25-30% left-sided pneumothorax. Chest tube is in place. 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 The patient has a history of hyperlipidemia, diabetes, and hypothyroidism. Progress note dated 07/07/2023. 82-year-old female who is postop day #2, status post robotically assisted left upper lobe segmentectomy. The patient also had a mediastinal lymph node dissection. Surgery was done by Dr. Bajwa. The patient is seen in room 357. She is currently on room air. She's not receiving any IV fluids. Today is postop day #2. Her chest tube is off suction. A chest x-ray is pending. White count 9.2, he lobe and 10.8, hematocrit 32.3, and platelet count is 132,000. Sodium 135, potassium 4.2, chlorides 101, CO2 25, BUN 16, and creatinine 0.61. Progress note dated 07/08/2023. 82-year-old female, postop day #3, status post robotically assisted left upper lobe segmentectomy. The patient also had a mediastinal lymph node dissection. Surgery was done by Dr. Bajwa. The patient is seen today in room 357. Currently on room air. She's not receiving any IV fluids. She has a significant leak from her left-sided chest tube. White count 7.3, with a normal hemoglobin, hematocrit, and platelet count. Sodium 134, potassium 5.1, chlorides 100, CO2 25, BUN 14, creatinine 0.66. Chest x-ray shows a left-sided chest tube, and about a 25% left apical pneumothorax. On today's evaluation of 2022, the patient is postop day #4. The patient underwent a robotic-assisted left upper segmentectomy. Patient also underwent a lymph node dissection. Overall, the patient is doing well. No specific complaints. She continues to have minimal amount of air leak with coughing. Output from the chest tube is minimal at this point in time. Outpatient medications have been resumed. No issues with pain control. She is using incentive spirometer. The patient has no other complaints otherwise for now. No nausea. No vomiting. No diarrhea. No abdominal pain. The chest x-ray from today shows no evidence of any pneumothorax, left-sided chest tube is in place and there is a sizable pneumothorax. On today's evaluation of 07/10/2023, the patient is postop day #5. The patient is doing extremely well. No complaints. No evidence of pneumothorax on today's chest x-ray in the right-sided chest tube is in place. She is ambulating. She is using the senna spirometer. There is some limited air leak with cough and for that reason we decided to keep the chest tube for another 24 hours. No other concerns for now. She is hemodynamically stable. Total amount of drainage from the chest tube is in order of 250 mL over the past 24 hours. The blood work shows a normal basic of 7.3, hemoglobin is at 11.6, BUN is at 40 with a creatinine of 0.6 and a sodium level is at 134. Glucose at 185. Objective - Vital Signs Vital signs: Vital Signs Temp 97.5 F L 07/10/23 08:00 Pulse 84 07/10/23 09:03 Resp 17 07/10/23 08:00 BP 118/54 07/10/23 08:00 Pulse Ox 97 07/10/23 08:00 FiO2 Intake & Output 07/09/23 07/10/23 07/10/23 18:59 06:59 18:59 Intake Total 480 240 110 Output Total 170 Balance 480 70 110 Intake: Oral 480 240 110 Output: Chest Tube Drainage 170 Chest Tube Left Anterior 170 Chest Other: Voiding Method Toilet Toilet Toilet # Voids 2 1 - Exam CONSTITUTIONAL: Appears comfortable, cooperative, no acute distress RESPIRATORY: Lungs sounds diminished bilaterally. Respirations even, nonlabored. Currently on room air with oxygen saturation 96%. Able to achieve 750 mL on incentive spirometry. Strong cough. CARDIOVASCULAR: S1, S2 present. Regular rate and rhythm, sinus rhythm on telemetry. Palpable peripheral pulses bilaterally. No edema present GASTROINTESTINAL: Abdomen soft, nontender, nondistended. Active bowel sounds present 4 quadrants. Tolerating diet GENITOURINARY: Continues to void INTEGUMENTARY: Skin is warm and dry NEUROLOGIC: Cranial nerves II through XII intact MUSKULOSKELETAL: Able to move all extremities, strength equal bilaterally, gait normal PSYCHIATRIC: Alert and oriented to person place and time, appropriate affect, intact judgment and insight INVASIVE LINES AND TUBES: Left pleural chest tube present to water seal, intermittent air leak present with coughing, 250 mL serosanguineous drainage in the last 24 hours - Labs CBC & Chem 7: 07/08/23 08:09 07/08/23 08:09 Labs: Abnormal Lab Results - Last 24 Hours (Table) 07/09/23 07/09/23 07/10/23 Range/Units 16:33 20:15 06:09 POC Glucose (mg/dL) 121 H 208 H 125 H (70-110) mg/dL Assessment and Plan Plan: Postop day #5, status post robotically-assisted left upper lobe segmentectomy, and mediastinal lymph node dissection. The patient continues to have a left- sided chest tube in place. Minimal amount of air leak with cough Acute hypoxic respiratory failure secondary to above, improving, the patient is currently on room air oxygen 2.5 cm left upper lobe pulmonary nodule, with a negative PET CT fusion study, and biopsy, that was nondiagnostic. History of diabetes mellitus. History of hyperlipidemia. History of hypothyroidism. Plan: Keep the chest for another 24 hours Chest x-ray showed no evidence of any pneumothorax Patient is currently on room and oxygen Encourage use of incentive spirometer Will likely need to remove the chest tube the next 24 hours Repeat chest x-ray in the morning Outpatient medications have been resumed We'll continue to follow
[2023-07-10 13:37] VITALS: BMI 30.8
--- NOTE | 2023-07-10 14:48 | XR ---
EXAMINATION TYPE: XR chest 2V DATE OF EXAM: 07/10/2023 COMPARISON: 07/10/2023 TECHNIQUE: PA and lateral views submitted. HISTORY: Chest tube clamped FINDINGS: There is interval increase in size of the left-sided pneumothorax seen along the lower lung base with approximate 20% pneumothorax. Nodular appearing density and postsurgical change with volume loss lef t hemithorax. Right lung clear. Osseous structures stable. IMPRESSION: 1. Interval increase in size of left pneumothorax now measuring approximately 20%
[2023-07-10 16:19] LABS: Glucose,Whole Blood 178 mg/dL (70-110)
[2023-07-10 20:04] LABS: Glucose,Whole Blood 158 mg/dL (70-110)
[2023-07-10] MEDS: MAGNESIUM OXIDE 400 MG TAB PO SCH (20:25)
[2023-07-10] MEDS: MELATONIN 5 MG TABLET PO PRN (20:25)
[2023-07-10] MEDS: SENNOSIDES-DOCUSATE SODIUM 1 EACH TAB PO SCH (20:25)
[2023-07-11] MEDS: traMADol 50 MG TAB PO PRN (03:05)
[2023-07-11] MEDS: ACETAMINOPHEN TAB 325 MG TAB PO PRN ×2 (04:53→20:41)
[2023-07-11] MEDS: INSULIN ASPART (NovoLOG) 100 UNIT/ML VIAL SQ SCH ×4 (06:27→20:37)
[2023-07-11] MEDS: LEVOTHYROXINE 50 MCG TAB PO SCH (06:29)
[2023-07-11] MEDS: PANTOPRAZOLE 40 MG TABLET PO SCH (06:29)
[2023-07-11 08:13] LABS: HCT 34.8 % (34.0-46.0); HGB 11.3 gm/dL (11.4-16.0); MCH 31.8 pg (25.0-35.0); MCHC 32.4 g/dL (31.0-37.0); MCV 98.2 fL (80.0-100.0); Mean Platelet Volume 9.7; Platelet Count 199 k/uL (150-450); RBC 3.54 m/uL (3.80-5.40); RDW 13.1 % (11.5-15.5); WBC 7.5 k/uL (3.8-10.6)
[2023-07-11 08:30] LABS: African American GFR (CKD) >90 (>60 ml/min/1.73 sqM); Anion Gap 8 mmol/L; Blood Urea Nitrogen 11 mg/dL (7-17); Calcium 9.4 mg/dL (8.4-10.2); Carbon Dioxide 26 mmol/L (22-30); Chloride 99 mmol/L (98-107); Glucose 122 mg/dL (74-99); Non-African American GFR(CKD) 83 (>60 ml/min/1.73 sqM); Potassium 5.2 mmol/L (3.5-5.1); Sodium 133 mmol/L (137-145)
--- NOTE | 2023-07-11 08:48 | XR ---
EXAMINATION TYPE: XR chest 2V DATE OF EXAM: 07/11/2023 COMPARISON: 07/10/2023 TECHNIQUE: PA and lateral views submitted. HISTORY: Post wedge resection FINDINGS: There is interval increase in size of the left-sided pneumothorax seen along the lower lung base with approximate 20% pneumothorax. Nodular appearing density and postsurgical change with volume loss lef t hemithorax. Right lung clear. Osseous structures stable. IMPRESSION: 1. Stable left-sided pneumothorax measuring approximately 20%.
[2023-07-11] MEDS: FORMOTEROL FUMARATE 20 MCG/2 ML NEBU INHALATION SCH ×2 (09:06→21:23)
[2023-07-11] MEDS: IPRATROPIUM-ALBUTEROL 3 ML NEB IH SCH ×4 (09:06→21:23)
--- NOTE | 2023-07-11 09:15 | P.PN ---
Subjective Progress Note Date: 07/11/23 Principal diagnosis: Left upper lobe nodule. Previous medical history of right breast cancer 15 years ago status post chemo and radiation, previous tobacco dependence, COPD, type 2 diabetes, hyperlipidemia, hypothyroid, fatty liver with cirrhosis POD #6 bronchoscopy, left robotic-assisted thoracoscopic surgery with left upper lobe apical-posterior segmentectomy using the [employer] angiography system, mediastinal lymph node dissection, intercostal nerve blocks at 2 level Persistent air leak, expected The patient was seen and examined this morning sitting up in a recliner in the cardiac stepdown unit in no acute distress. She states was less controlled last night as Toradol was stopped per pharmacy stop date, denies shortness of breath. Remains in sinus rhythm, hemodynamically stable. Currently on room air with oxygen saturation in the high 90s. Able to achieve 1000 mL on incentive spirometry. Chest x-ray, labs reviewed. Left sided pleural chest tube continues to waterseal, air leak remains present with forceful coughing only. Patient has been ambulatory without difficulty. No other new concerns. Objective - Vital Signs Vital signs: Vital Signs Temp 98.1 F 07/11/23 03:06 Pulse 77 07/11/23 03:06 Resp 18 07/11/23 03:06 BP 137/74 07/11/23 03:06 Pulse Ox 96 07/11/23 03:06 FiO2 Intake & Output 07/10/23 07/11/23 07/11/23 18:59 06:59 18:59 Intake Total 845 0 Output Total 255 Balance 845 -255 0 Weight 74 kg Intake: Oral 845 0 Output: Chest Tube Drainage 155 Chest Tube Left Anterior 155 Chest Drainage 100 Right Chest 100 Other: Voiding Method Toilet Toilet # Voids 3 - Exam CONSTITUTIONAL: Appears comfortable, cooperative, no acute distress RESPIRATORY: Lungs sounds diminished bilaterally. Respirations even, n onlabored. Currently on room air with oxygen saturation 96%. Able to achieve 1000 mL on incentive spirometry. Strong cough. CARDIOVASCULAR: S1, S2 present. Regular rate and rhythm, sinus rhythm on telemetry. Palpable peripheral pulses bilaterally. No edema present GASTROINTESTINAL: Abdomen soft, nontender, nondistended. Active bowel sounds present 4 quadrants. Tolerating diet GENITOURINARY: Continues to void INTEGUMENTARY: Skin is warm and dry NEUROLOGIC: Cranial nerves II through XII intact MUSKULOSKELETAL: Able to move all extremities, strength equal bilaterally, gait normal PSYCHIATRIC: Alert and oriented to person place and time, appropriate affect, intact judgment and insight INVASIVE LINES AND TUBES: Left pleural chest tube present to water seal, intermittent air leak present with forceful coughing, 255 mL serosanguineous drainage in the last 24 hours - Allied health notes Allied health notes reviewed: nursing - Labs CBC & Chem 7: 07/11/23 07:21 07/11/23 07:21 Labs: Abnormal Lab Results - Last 24 Hours (Table) 07/10/23 07/10/23 07/10/23 Range/Units 11:10 16:18 20:02 RBC (3.80-5.40) m/uL Hgb (11.4-16.0) gm/dL Sodium (137-145) mmol/L Potassium (3.5-5.1) mmol/L Glucose (74-99) mg/dL POC Glucose (mg/dL) 186 H 178 H 158 H (70-110) mg/dL 07/11/23 07/11/23 Range/Units 07:21 07:21 RBC 3.54 L (3.80-5.40) m/uL Hgb 11.3 L (11.4-16.0) gm/dL Sodium 133 L (137-145) mmol/L Potassium 5.2 H (3.5-5.1) mmol/L Glucose 122 H (74-99) mg/dL POC Glucose (mg/dL) (70-110) mg/dL - Imaging and Cardiology Chest x-ray: report reviewed, image reviewed Assessment and Plan Assessment: Left upper lobe nodule, status post left VATS with left upper lobe apical- posterior segmentectomy History of right breast cancer 15 years ago status post chemo and radiation Previous tobacco dependence COPD Type 2 diabetes Hyperlipidemia Hypothyroid Fatty liver with cirrhosis Persistent air leak Plan: Continue pleural chest tube to water seal for another 24 hours, monitor for air leak resolution Encourage incentive spirometry use 10 times every hour while awake. Bronchodilators per pulmonology Will monitor daily labs and x-rays Increase activity, ambulate as tolerated GI/DVT prophylaxis Pain control with current medication regimen Continue home medications More recommendations to follow
[2023-07-11] MEDS: HEPARIN SODIUM,PORCINE 5,000 UNIT/ML 1 ML VIAL SQ SCH ×3 (09:17→22:59)
[2023-07-11] MEDS: metFORMIN 500 MG TAB PO SCH ×2 (09:17→20:37)
[2023-07-11] MEDS: CHOLECALCIFEROL 25 MCG (1000 IU) TABLET PO SCH (09:17)
[2023-07-11] MEDS: IBUPROFEN 600 MG TAB PO PRN ×3 (09:17→22:59)
[2023-07-11] MEDS: ATORVASTATIN 40 MG TAB PO SCH (09:18)
[2023-07-11] MEDS: polyethylene glycoL 3350 17 GM POWD.PACK PO SCH (09:26)
[2023-07-11 11:28] LABS: Glucose,Whole Blood 152 mg/dL (70-110)
--- NOTE | 2023-07-11 16:20 | P.PN ---
Subjective Progress Note Date: 07/11/23 82-year-old female, postop day #1, status post robotically assisted left upper lobe segmentectomy, and mediastinal lymph node dissection. Done by Dr. Bajwa. The patient is seen in room 357. The patient's on room air, and without any IV fluids. She does have a left-sided chest tube leak. Clinically she will looks well. Current labs include a white count 9.5, hemoglobin 11.4, hematocrit 34, and a pl atelet count of 137,000. Sodium 137, potassium 4.4, chlorides 105, CO2 24, BUN 16, creatinine 0.59. Chest x-ray shows a 25-30% left-sided pneumothorax. Chest tube is in place. 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 The patient has a history of hyperlipidemia, diabetes, and hypothyroidism. Progress note dated 07/07/2023. 82-year-old female who is postop day #2, status post robotically assisted left upper lobe segmentectomy. The patient also had a mediastinal lymph node dissection. Surgery was done by Dr. Bajwa. The patient is seen in room 357. She is currently on room air. She's not receiving any IV fluids. Today is postop day #2. Her chest tube is off suction. A chest x-ray is pending. White count 9.2, he lobe and 10.8, hematocrit 32.3, and platelet count is 132,000. Sodium 135, potassium 4.2, chlorides 101, CO2 25, BUN 16, and creatinine 0.61. Progress note dated 07/08/2023. 82-year-old female, postop day #3, status post robotically assisted left upper lobe segmentectomy. The patient also had a mediastinal lymph node dissection. Surgery was done by Dr. Bajwa. The patient is seen today in room 357. Currently on room air. She's not receiving any IV fluids. She has a significant leak from her left-sided chest tube. White count 7.3, with a normal hemoglobin, hematocrit, and platelet count. Sodium 134, potassium 5.1, chlorides 100, CO2 25, BUN 14, creatinine 0.66. Chest x-ray shows a left-sided chest tube, and about a 25% left apical pneumothorax. On today's evaluation of 2022, the patient is postop day #4. The patient underwent a robotic-assisted left upper segmentectomy. Patient also underwent a lymph node dissection. Overall, the patient is doing well. No specific complaints. She continues to have minimal amount of air leak with coughing. Output from the chest tube is minimal at this point in time. Outpatient medications have been resumed. No issues with pain control. She is using incentive spirometer. The patient has no other complaints otherwise for now. No nausea. No vomiting. No diarrhea. No abdominal pain. The chest x-ray from today shows no evidence of any pneumothorax, left-sided chest tube is in place and there is a sizable pneumothorax. On today's evaluation of 07/10/2023, the patient is postop day #5. The patient is doing extremely well. No complaints. No evidence of pneumothorax on today's chest x-ray in the right-sided chest tube is in place. She is ambulating. She is using the senna spirometer. There is some limited air leak with cough and for that reason we decided to keep the chest tube for another 24 hours. No other concerns for now. She is hemodynamically stable. Total amount of drainage from the chest tube is in order of 250 mL over the past 24 hours. The blood work shows a normal basic of 7.3, hemoglobin is at 11.6, BUN is at 40 with a creatinine of 0.6 and a sodium level is at 134. Glucose at 185. On today's evaluation of 07/11/2023, the patient is postop day #6. There is episodic airleak still noted on the chest tube. The chest tube was clamped and there was no global pneumothorax and based on that the tube was unclamped and there is no significant pneumothorax on today's chest x-ray. Nevertheless, there is still episodic airleak. Despite all this, the patient is, comfortable. No significant respiratory distress. The patient is ambulating. She is currently on room air oxygen. Pulse ox is in the mid 90s. She is using the incentive spirometer. Left-sided chest tube continues to be to waterseal with episodic airleak as mentioned. 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 All of the margins were negative and the lymph nodes are also negative. As such, the patient was given T1 cN0 M0 disease. Objective - Vital Signs Vital signs: Vital Signs Temp 98.0 F 07/11/23 08:00 Pulse 105 H 07/11/23 08:00 Resp 18 07/11/23 08:00 BP 128/68 07/11/23 08:00 Pulse Ox 97 07/11/23 08:00 FiO2 Intake & Output 07/10/23 07/11/23 07/11/23 18:59 06:59 18:59 Intake Total 845 0 Output Total 255 Balance 845 -255 0 Weight 74 kg Intake: Oral 845 0 Output: Chest Tube Drainage 155 Chest Tube Left Anterior 155 Chest Drainage 100 Right Chest 100 Other: Voiding Method Toilet Toilet # Voids 3 - Exam CONSTITUTIONAL: Appears comfortable, cooperative, no acute distress, the patient is currently on room air oxygen. RESPIRATORY: Lungs sounds diminished bilaterally. Respirations even, nonlabored. Currently on room air with oxygen saturation 96%. Able to achieve 750 mL on incentive spirometry. Strong cough. There is intermittent air leak noted on the chest tube. Output from the left sided chest tube has been in the order of 255 mL over the past 24 hours. CARDIOVASCULAR: S1, S2 present. Regular rate and rhythm, sinus rhythm on telemetry. Palpable peripheral pulses bilaterally. No edema present GASTROINTESTINAL: Abdomen soft, nontender, nondistended. Active bowel sounds present 4 quadrants. Tolerating diet GENITOURINARY: Continues to void INTEGUMENTARY: Skin is warm and dry NEUROLOGIC: Cranial nerves II through XII intact MUSKULOSKELETAL: Able to move all extremities, strength equal bilaterally, gait normal PSYCHIATRIC: Alert and oriented to person place and time, appropriate affect, intact judgment and insight INVASIVE LINES AND TUBES: Left pleural chest tube present to water seal, intermittent air leak present with coughing, 250 mL serosanguineous drainage in the last 24 hours - Labs CBC & Chem 7: 07/11/23 07:21 07/11/23 07:21 Labs: Abnormal Lab Results - Last 24 Hours (Table) 07/10/23 07/10/23 07/10/23 Range/Units 11:10 16:18 20:02 RBC (3.80-5.40) m/uL Hgb (11.4-16.0) gm/dL Sodium (137-145) mmol/L Potassium (3.5-5.1) mmol/L Glucose (74-99) mg/dL POC Glucose (mg/dL) 186 H 178 H 158 H (70-110) mg/dL 07/11/23 07/11/23 Range/Units 07:21 07:21 RBC 3.54 L (3.80-5.40) m/uL Hgb 11.3 L (11.4-16.0) gm/dL Sodium 133 L (137-145) mmol/L Potassium 5.2 H (3.5-5.1) mmol/L Glucose 122 H (74-99) mg/dL POC Glucose (mg/dL) (70-110) mg/dL Assessment and Plan Plan: Postop day #6, status post robotically-assisted left upper lobe segmentectomy, and mediastinal lymph node dissection. The patient continues to have a left- sided chest tube in place. Intermittent air leak is noted on the chest tube. 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 The patient has T1 cN0 M0 disease Acute hypoxic respiratory failure secondary to above, improving, the patient is currently on room air oxygen 2.5 cm left upper lobe pulmonary nodule, with a negative PET CT fusion study, and biopsy, that was nondiagnostic. History of diabetes mellitus. History of hyperlipidemia. History of hypothyroidism. Plan: Keep the chest for another 24 hours Chest x-ray showed no evidence of any pneumothorax Monitor the air leak Final diagnoses were discussed The patient has early stage non-small cell lung cancer Patient is currently on room and oxygen Encourage use of incentive spirometer Repeat chest x-ray in the morning Patient is ambulating We'll continue to follow
[2023-07-11 16:38] LABS: Glucose,Whole Blood 117 mg/dL (70-110)
[2023-07-11 16:39] LABS: Glucose,Whole Blood 130 mg/dL (70-110)
[2023-07-11 19:44] LABS: Glucose,Whole Blood 184 mg/dL (70-110)
[2023-07-11] MEDS: MAGNESIUM OXIDE 400 MG TAB PO SCH (20:37)
[2023-07-11] MEDS: SENNOSIDES-DOCUSATE SODIUM 1 EACH TAB PO SCH (20:37)
[2023-07-12] MEDS: traMADol 50 MG TAB PO PRN ×2 (00:31→20:32)
[2023-07-12] MEDS: MELATONIN 5 MG TABLET PO PRN (00:33)
[2023-07-12] MEDS: ACETAMINOPHEN TAB 325 MG TAB PO PRN (03:32)
[2023-07-12 06:01] LABS: Glucose,Whole Blood 160 mg/dL (70-110)
[2023-07-12] MEDS: PANTOPRAZOLE 40 MG TABLET PO SCH (06:17)
[2023-07-12] MEDS: IBUPROFEN 600 MG TAB PO PRN ×4 (06:17→23:41)
[2023-07-12] MEDS: LEVOTHYROXINE 50 MCG TAB PO SCH (06:17)
[2023-07-12] MEDS: INSULIN ASPART (NovoLOG) 100 UNIT/ML VIAL SQ SCH ×4 (06:18→20:33)
[2023-07-12 07:49] LABS: HCT 33.5 % (34.0-46.0); HGB 11.3 gm/dL (11.4-16.0); MCH 33.3 pg (25.0-35.0); MCHC 33.7 g/dL (31.0-37.0); MCV 98.8 fL (80.0-100.0); Mean Platelet Volume 8.5; Platelet Count 226 k/uL (150-450); RBC 3.39 m/uL (3.80-5.40); WBC 7.2 k/uL (3.8-10.6)
[2023-07-12 08:09] LABS: African American GFR (CKD) >90 (>60 ml/min/1.73 sqM); Anion Gap 8 mmol/L; Blood Urea Nitrogen 11 mg/dL (7-17); Calcium 9.6 mg/dL (8.4-10.2); Carbon Dioxide 29 mmol/L (22-30); Chloride 100 mmol/L (98-107); Glucose 140 mg/dL (74-99); Non-African American GFR(CKD) 83 (>60 ml/min/1.73 sqM); Potassium 4.9 mmol/L (3.5-5.1); Sodium 137 mmol/L (137-145)
[2023-07-12] MEDS: IPRATROPIUM-ALBUTEROL 3 ML NEB IH SCH ×4 (08:18→20:55)
[2023-07-12] MEDS: FORMOTEROL FUMARATE 20 MCG/2 ML NEBU INHALATION SCH ×2 (08:18→20:55)
--- NOTE | 2023-07-12 08:19 | XR ---
EXAMINATION TYPE: XR chest 2V DATE OF EXAM: 07/12/2023 COMPARISON: 07/11/2023 HISTORY: Status post left-sided wedge resection with pneumothorax follow-up TECHNIQUE: Frontal and lateral views of the chest are obtained. FINDINGS: Left-sided chest tube is unchanged in position. Estimated 20% left-sided pneumothorax is unchanged. P ostoperative changes about the left hilum. No mediastinal shift. The right lung is clear. Heart size is stable. Mediastinal structures are stable and grossly unremarkable. No evidence for hilar prominence. Degenerative changes dorsal spine. IMPRESSION: 1. Left-sided chest tube is unchanged in position. Estimated 20% left-sided pneumothorax is unchanged . Postoperative changes about the left hilum.
[2023-07-12] MEDS: ATORVASTATIN 40 MG TAB PO SCH (09:02)
[2023-07-12] MEDS: HEPARIN SODIUM,PORCINE 5,000 UNIT/ML 1 ML VIAL SQ SCH ×3 (09:02→23:41)
[2023-07-12] MEDS: CHOLECALCIFEROL 25 MCG (1000 IU) TABLET PO SCH (09:02)
[2023-07-12] MEDS: metFORMIN 500 MG TAB PO SCH ×2 (09:02→20:32)
--- NOTE | 2023-07-12 09:10 | CT ---
EXAMINATION TYPE: CT chest wo con DATE OF EXAM: 07/12/2023 COMPARISON: Preoperative study of May 10, 2023 HISTORY: LT pneumothorax CT DLP: 349.[address] of the chest was performed with lung and mediastinal window settings submitted. The la ck of contrast limits evaluation of the vascular, mediastinal and parenchymal structures including th e upper abdomen. LUNGS: There is interval left-sided wedge resection. Postoperative changes seen about the left hilum. There is left-sided chest tube with pneumothorax identified estimated at approximately 20-25%. Small amount of subcutaneous air is noted. There is no evidence of mediastinal shift. Mild left basilar at electatic change noted MEDIASTINUM/LIZETH: Thoracic aorta is of normal caliber with limited evaluation given lack of contrast . The heart is not enlarged. No evidence for mediastinal mass. No lymph nodes greater than 1cm. UPPER ABDOMEN: No significant abnormality is seen. OTHER: No significant other abnormality. IMPRESSION: 1. Left-sided pneumothorax estimated at 2025% with left-sided chest tube in place. Postoperative tabby nges about the left hilum. Small amount of subcutaneous air. No evidence for mediastinal shift.
[2023-07-12 11:47] LABS: Glucose,Whole Blood 178 mg/dL (70-110)
[2023-07-12] MEDS: polyethylene glycoL 3350 17 GM POWD.PACK PO SCH (12:18)
--- NOTE | 2023-07-12 12:18 | P.PN ---
Subjective Progress Note Date: 07/12/23 82-year-old female, postop day #1, status post robotically assisted left upper lobe segmentectomy, and mediastinal lymph node dissection. Done by Dr. Bajwa. The patient is seen in room 357. The patient's on room air, and without any IV fluids. She does have a left-sided chest tube leak. Clinically she will looks well. Current labs include a white count 9.5, hemoglobin 11.4, hematocrit 34, and a pl atelet count of 137,000. Sodium 137, potassium 4.4, chlorides 105, CO2 24, BUN 16, creatinine 0.59. Chest x-ray shows a 25-30% left-sided pneumothorax. Chest tube is in place. 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 The patient has a history of hyperlipidemia, diabetes, and hypothyroidism. Progress note dated 07/07/2023. 82-year-old female who is postop day #2, status post robotically assisted left upper lobe segmentectomy. The patient also had a mediastinal lymph node dissection. Surgery was done by Dr. Bajwa. The patient is seen in room 357. She is currently on room air. She's not receiving any IV fluids. Today is postop day #2. Her chest tube is off suction. A chest x-ray is pending. White count 9.2, he lobe and 10.8, hematocrit 32.3, and platelet count is 132,000. Sodium 135, potassium 4.2, chlorides 101, CO2 25, BUN 16, and creatinine 0.61. Progress note dated 07/08/2023. 82-year-old female, postop day #3, status post robotically assisted left upper lobe segmentectomy. The patient also had a mediastinal lymph node dissection. Surgery was done by Dr. Bajwa. The patient is seen today in room 357. Currently on room air. She's not receiving any IV fluids. She has a significant leak from her left-sided chest tube. White count 7.3, with a normal hemoglobin, hematocrit, and platelet count. Sodium 134, potassium 5.1, chlorides 100, CO2 25, BUN 14, creatinine 0.66. Chest x-ray shows a left-sided chest tube, and about a 25% left apical pneumothorax. On today's evaluation of 2022, the patient is postop day #4. The patient underwent a robotic-assisted left upper segmentectomy. Patient also underwent a lymph node dissection. Overall, the patient is doing well. No specific complaints. She continues to have minimal amount of air leak with coughing. Output from the chest tube is minimal at this point in time. Outpatient medications have been resumed. No issues with pain control. She is using incentive spirometer. The patient has no other complaints otherwise for now. No nausea. No vomiting. No diarrhea. No abdominal pain. The chest x-ray from today shows no evidence of any pneumothorax, left-sided chest tube is in place and there is a sizable pneumothorax. On today's evaluation of 07/10/2023, the patient is postop day #5. The patient is doing extremely well. No complaints. No evidence of pneumothorax on today's chest x-ray in the right-sided chest tube is in place. She is ambulating. She is using the senna spirometer. There is some limited air leak with cough and for that reason we decided to keep the chest tube for another 24 hours. No other concerns for now. She is hemodynamically stable. Total amount of drainage from the chest tube is in order of 250 mL over the past 24 hours. The blood work shows a normal basic of 7.3, hemoglobin is at 11.6, BUN is at 40 with a creatinine of 0.6 and a sodium level is at 134. Glucose at 185. On today's evaluation of 07/11/2023, the patient is postop day #6. There is episodic airleak still noted on the chest tube. The chest tube was clamped and there was no global pneumothorax and based on that the tube was unclamped and there is no significant pneumothorax on today's chest x-ray. Nevertheless, there is still episodic airleak. Despite all this, the patient is, comfortable. No significant respiratory distress. The patient is ambulating. She is currently on room air oxygen. Pulse ox is in the mid 90s. She is using the incentive spirometer. Left-sided chest tube continues to be to waterseal with episodic airleak as mentioned. 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 All of the margins were negative and the lymph nodes are also negative. As such, the patient was given T1 cN0 M0 disease. On today's evaluation of 07/12/2023, the patient is postop day #7. The patient is post left upper lobe segmentectomy. 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 The patient continues to have airleak. The patient is on wate rseal. The follow-up chest x-ray from today shows a left apical pneumothorax and based on that, a computed tomography scan of the chest was done and the patient was found to have a left-sided pneumothorax in the order of 20%. There is some postop changes in the left hilum. Small amount of subcutaneous air was also seen. Despite her ongoing airleak, the patient is very much comfortable. She is currently on room air oxygen with a pulse ox of 97%. Her labs show a white cell count 7.2, hemoglobin 11.3 and a platelet count of 226. The electrolytes are normal with a BUN of 11 and a creatinine of 0.6. She is active. He is ambulating. No nausea or vomiting. No other respiratory difficulties. Objective - Vital Signs Vital signs: Vital Signs Temp 96.0 F L 07/12/23 11:09 Pulse 78 07/12/23 11:09 Resp 16 07/12/23 11:09 BP 131/61 07/12/23 11:09 Pulse Ox 97 07/12/23 11:09 FiO2 Intake & Output 07/11/23 07/12/23 07/12/23 18:59 06:59 18:59 Intake Total 225 Output Total 50 40 Balance 175 -40 Intake: Oral 225 Output: Chest Tube Drainage 40 Chest Tube Left Anterior 40 Chest Drainage 50 Right Chest 50 Other: Voiding Method Toilet # Voids 1 - Exam CONSTITUTIONAL: Appears comfortable, cooperative, no acute distress, the patient is currently on room air oxygen. RESPIRATORY: Lungs sounds diminished bilaterally. Respirations even, nonlabored. Currently on room air with oxygen saturation 96%. Able to achieve 750 mL on incentive spirometry. Strong cough. There is air leak noted and the chest tube and the patient has her chest tube to waterseal. CARDIOVASCULAR: S1, S2 present. Regular rate and rhythm, sinus rhythm on telemetry. Palpable peripheral pulses bilaterally. No edema present GASTROINTESTINAL: Abdomen soft, nontender, nondistended. Active bowel sounds present 4 quadrants. Tolerating diet GENITOURINARY: Continues to void INTEGUMENTARY: Skin is warm and dry NEUROLOGIC: Cranial nerves II through XII intact MUSKULOSKELETAL: Able to move all extremities, strength equal bilaterally, gait normal PSYCHIATRIC: Alert and oriented to person place and time, appropriate affect, intact judgment and insight INVASIVE LINES AND TUBES: Left pleural chest tube present to water seal - Labs CBC & Chem 7: 07/12/23 07:25 07/12/23 07:25 Labs: Abnormal Lab Results - Last 24 Hours (Table) 07/11/23 07/11/23 07/11/23 Range/Units 06:08 16:19 19:42 RBC (3.80-5.40) m/uL Hgb (11.4-16.0) gm/dL Hct (34.0-46.0) % Glucose (74-99) mg/dL POC Glucose (mg/dL) 117 H 130 H 184 H (70-110) mg/dL 07/12/23 07/12/23 07/12/23 Range/Units 05:59 07:25 07:25 RBC 3.39 L (3.80-5.40) m/uL Hgb 11.3 L (11.4-16.0) gm/dL Hct 33.5 L (34.0-46.0) % Glucose 140 H (74-99) mg/dL POC Glucose (mg/dL) 160 H (70-110) mg/dL 07/12/23 Range/Units 11:45 RBC (3.80-5.40) m/uL Hgb (11.4-16.0) gm/dL Hct (34.0-46.0) % Glucose (74-99) mg/dL POC Glucose (mg/dL) 178 H (70-110) mg/dL Assessment and Plan Plan: Postop day #6, status post robotically-assisted left upper lobe segmentectomy, and mediastinal lymph node dissection. The patient continues to have a left- sided chest tube in place. Chest tube is to waterseal and the patient continues to have intermittent air leak. 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 The p atient has T1 cN0 M0 disease Left-sided pneumothorax in order of 20-25%, clinically asymptomatic Acute hypoxic respiratory failure secondary to above, improving, the patient is currently on room air oxygen 2.5 cm left upper lobe pulmonary nodule, with a negative PET CT fusion study, and biopsy, that was nondiagnostic. History of diabetes mellitus. History of hyperlipidemia. History of hypothyroidism. Plan: Keep the chest for another 24 hours Chest x-ray showed shows a pneumothorax and the findings are also confirmed by CAT scan of the chest Monitor the air leak Final diagnoses were discussed and the patient has a early stage non-small cell lung cancer Patient is currently on room and oxygen Encourage use of incentive spirometer Repeat chest x-ray in the morning Patient is ambulating We'll continue to follow
--- NOTE | 2023-07-12 15:55 | P.PN ---
Subjective Progress Note Date: 07/12/23 Principal diagnosis: Left upper lobe nodule. Past medical history significant for right breast cancer 15 years ago status post chemo and radiation, previous tobacco dependence, COPD, type 2 diabetes, hyperlipidemia, hypothyroid, fatty liver with cirrhosis POD #7 bronchoscopy, left robotic-assisted thoracoscopic surgery with left upper lobe apical-posterior segmentectomy using the [employer] firefly angiography system, mediastinal lymph node dissection, intercostal nerve blocks at 2 level Persistent air leak, expected The patient was seen and examined in follow up today 07/12/23 at her bedside on the 3 rd floor cardiac step down unit. She is sitting up to the bedside couch, is awake, alert, and is oriented x 3. She denies any complaints of shortness of breath, although is complaining some chest pain to her left chest with taking a deep breath. left pleural chest tube remains in place and is to waterseal. Small intermittent air leak present with coughing and with using her incentive spirometry. Remote telemetry is showing NSR with HR 77 bpm. Chest x-ray and labs were reviewed. The patient reports she has been up ambulating in her room and hallway without difficulty. Objective - Vital Signs Vital signs: Vital Signs Temp 96.0 F L 07/12/23 11:09 Pulse 78 07/12/23 11:09 Resp 16 07/12/23 13:31 BP 131/61 07/12/23 11:09 Pulse Ox 97 07/12/23 11:09 FiO2 Intake & Output 07/11/23 07/12/23 07/12/23 18:59 06:59 18:59 Intake Total 225 240 Output Total 50 40 Balance 175 -40 240 Intake: Oral 225 240 Output: Chest Tube Drainage 40 Chest Tube Left Anterior 40 Chest Drainage 50 Right Chest 50 Other: Voiding Method Toilet # Voids 1 - Exam CONSTITUTIONAL: Appears comfortable, cooperative, no acute distress RESPIRATORY: Lungs sounds diminished bilaterally. Respirations are symmetrical, nonlabored. Currently on room air with oxygen saturation 95%. Able to achieve 500-750 mL on incentive spirometry. Strong cough. CARDIOVASCULAR: S1, S2 present. Regular rate and rhythm, sinus rhythm on telemetry. Palpable peripheral pulses bilaterally. No edema present GASTROINTESTINAL: Abdomen soft, nontender, nondistended. Active bowel sounds present 4 quadrants. Tolerating diet. GENITOURINARY: Continues to void. INTEGUMENTARY: Skin is warm and dry, no clubbing or cyanosis. left chest incisions clean, dry and approximated. NEUROLOGIC: Cranial nerves II through XII intact. MUSKULOSKELETAL: Able to move all extremities, strength equal bilaterally, gait normal. PSYCHIATRIC: Alert and oriented to person place and time, appropriate affect, intact judgment and insight. INVASIVE LINES AND TUBES: Left pleural chest tube present to water seal, intermittent air leak present with coughing, 230 mL serosanguineous drainage in the last 24 hours - Allied health notes Allied health notes reviewed: nursing - Labs CBC & Chem 7: 07/12/23 07:25 07/12/23 07:25 Labs: Abnormal Lab Results - Last 24 Hours (Table) 07/11/23 07/11/23 07/11/23 Range/Units 06:08 16:19 19:42 RBC (3.80-5.40) m/uL Hgb (11.4-16.0) gm/dL Hct (34.0-46.0) % Glucose (74-99) mg/dL POC Glucose (mg/dL) 117 H 130 H 184 H (70-110) mg/dL 07/12/23 07/12/23 07/12/23 Range/Units 05:59 07:25 07:25 RBC 3.39 L (3.80-5.40) m/uL Hgb 11.3 L (11.4-16.0) gm/dL Hct 33.5 L (34.0-46.0) % Glucose 140 H (74-99) mg/dL POC Glucose (mg/dL) 160 H (70-110) mg/dL 07/12/23 Range/Units 11:45 RBC (3.80-5.40) m/uL Hgb (11.4-16.0) gm/dL Hct (34.0-46.0) % Glucose (74-99) mg/dL POC Glucose (mg/dL) 178 H (70-110) mg/dL - Imaging and Cardiology Chest x-ray: report reviewed, image reviewed Assessment and Plan Assessment: Left upper lobe nodule, status post left VATS with left upper lobe apical- posterior segmentectomy History of right breast cancer 15 years ago status post chemo and radiation Previous tobacco dependence COPD Type 2 diabetes Hyperlipidemia Hypothyroid Fatty liver with cirrhosis Persistent air leak Plan: Continue pleural chest tube to water seal for another 24 hours, monitor for air leak resolution Encourage incentive spirometry use 10 times every hour while awake. Bronchodilators per pulmonology Will monitor daily labs and chest x-rays. Will obtain a CT chest without contrast today to evaluate her left pneumothorax. Increase activity, ambulate as tolerated. GI/DVT prophylaxis Pain control with current medication regimen. Continue home medications. Discharge planning is in place. More recommendations to follow based on patients clinical course. Time with Patient: Greater than 30
[2023-07-12 16:41] LABS: Glucose,Whole Blood 116 mg/dL (70-110)
[2023-07-12 18:36] VITALS: RESP 18
[2023-07-12 19:45] LABS: Glucose,Whole Blood 159 mg/dL (70-110)
[2023-07-12] MEDS: SENNOSIDES-DOCUSATE SODIUM 1 EACH TAB PO SCH (20:32)
[2023-07-12] MEDS: MAGNESIUM OXIDE 400 MG TAB PO SCH (20:33)
[2023-07-12 21:46] VITALS: TEMP 97.7
[2023-07-13] MEDS: IBUPROFEN 600 MG TAB PO PRN (04:32)
[2023-07-13 05:58] LABS: Glucose,Whole Blood 136 mg/dL (70-110)
[2023-07-13] MEDS: INSULIN ASPART (NovoLOG) 100 UNIT/ML VIAL SQ SCH ×2 (06:02→11:44)
[2023-07-13] MEDS: LEVOTHYROXINE 50 MCG TAB PO SCH (06:11)
[2023-07-13] MEDS: PANTOPRAZOLE 40 MG TABLET PO SCH (06:11)
[2023-07-13] MEDS: metFORMIN 500 MG TAB PO SCH (08:23)
[2023-07-13] MEDS: ATORVASTATIN 40 MG TAB PO SCH (08:23)
[2023-07-13] MEDS: CHOLECALCIFEROL 25 MCG (1000 IU) TABLET PO SCH (08:23)
[2023-07-13] MEDS: polyethylene glycoL 3350 17 GM POWD.PACK PO SCH (08:23)
[2023-07-13] MEDS: HEPARIN SODIUM,PORCINE 5,000 UNIT/ML 1 ML VIAL SQ SCH (08:23)
[2023-07-13 08:28] VITALS: BP 120/58; PULSE 87
--- NOTE | 2023-07-13 08:39 | XR ---
EXAMINATION TYPE: XR chest 2V DATE OF EXAM: 07/13/2023 COMPARISON: 07/12/2023 TECHNIQUE: PA and lateral views submitted. HISTORY: Postop left upper lobe lobectomy FINDINGS: There is interval increase in size of the left-sided pneumothorax seen along the lower lung base with approximate 20% pneumothorax. Nodular appearing density and postsurgical change with volume loss lef t hemithorax. Right lung clear. Osseous structures stable. IMPRESSION: 1. Stable left-sided pneumothorax measuring approximately 20%.
[2023-07-13] MEDS: FORMOTEROL FUMARATE 20 MCG/2 ML NEBU INHALATION SCH (09:11)
[2023-07-13] MEDS: IPRATROPIUM-ALBUTEROL 3 ML NEB IH SCH ×3 (09:11→15:45)
[2023-07-13] MEDS: traMADol 50 MG TAB PO PRN ×2 (09:58→15:52)
[2023-07-13 11:45] LABS: Glucose,Whole Blood 108 mg/dL (70-110)
--- NOTE | 2023-07-13 12:39 | P.PN ---
Subjective Progress Note Date: 07/13/23 82-year-old female, postop day #1, status post robotically assisted left upper lobe segmentectomy, and mediastinal lymph node dissection. Done by Dr. Bajwa. The patient is seen in room 357. The patient's on room air, and without any IV fluids. She does have a left-sided chest tube leak. Clinically she will looks well. Current labs include a white count 9.5, hemoglobin 11.4, hematocrit 34, and a pl atelet count of 137,000. Sodium 137, potassium 4.4, chlorides 105, CO2 24, BUN 16, creatinine 0.59. Chest x-ray shows a 25-30% left-sided pneumothorax. Chest tube is in place. 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 The patient has a history of hyperlipidemia, diabetes, and hypothyroidism. Progress note dated 07/07/2023. 82-year-old female who is postop day #2, status post robotically assisted left upper lobe segmentectomy. The patient also had a mediastinal lymph node dissection. Surgery was done by Dr. Bajwa. The patient is seen in room 357. She is currently on room air. She's not receiving any IV fluids. Today is postop day #2. Her chest tube is off suction. A chest x-ray is pending. White count 9.2, he lobe and 10.8, hematocrit 32.3, and platelet count is 132,000. Sodium 135, potassium 4.2, chlorides 101, CO2 25, BUN 16, and creatinine 0.61. Progress note dated 07/08/2023. 82-year-old female, postop day #3, status post robotically assisted left upper lobe segmentectomy. The patient also had a mediastinal lymph node dissection. Surgery was done by Dr. Bajwa. The patient is seen today in room 357. Currently on room air. She's not receiving any IV fluids. She has a significant leak from her left-sided chest tube. White count 7.3, with a normal hemoglobin, hematocrit, and platelet count. Sodium 134, potassium 5.1, chlorides 100, CO2 25, BUN 14, creatinine 0.66. Chest x-ray shows a left-sided chest tube, and about a 25% left apical pneumothorax. On today's evaluation of 2022, the patient is postop day #4. The patient underwent a robotic-assisted left upper segmentectomy. Patient also underwent a lymph node dissection. Overall, the patient is doing well. No specific complaints. She continues to have minimal amount of air leak with coughing. Output from the chest tube is minimal at this point in time. Outpatient medications have been resumed. No issues with pain control. She is using incentive spirometer. The patient has no other complaints otherwise for now. No nausea. No vomiting. No diarrhea. No abdominal pain. The chest x-ray from today shows no evidence of any pneumothorax, left-sided chest tube is in place and there is a sizable pneumothorax. On today's evaluation of 07/10/2023, the patient is postop day #5. The patient is doing extremely well. No complaints. No evidence of pneumothorax on today's chest x-ray in the right-sided chest tube is in place. She is ambulating. She is using the senna spirometer. There is some limited air leak with cough and for that reason we decided to keep the chest tube for another 24 hours. No other concerns for now. She is hemodynamically stable. Total amount of drainage from the chest tube is in order of 250 mL over the past 24 hours. The blood work shows a normal basic of 7.3, hemoglobin is at 11.6, BUN is at 40 with a creatinine of 0.6 and a sodium level is at 134. Glucose at 185. On today's evaluation of 07/11/2023, the patient is postop day #6. There is episodic airleak still noted on the chest tube. The chest tube was clamped and there was no global pneumothorax and based on that the tube was unclamped and there is no significant pneumothorax on today's chest x-ray. Nevertheless, there is still episodic airleak. Despite all this, the patient is, comfortable. No significant respiratory distress. The patient is ambulating. She is currently on room air oxygen. Pulse ox is in the mid 90s. She is using the incentive spirometer. Left-sided chest tube continues to be to waterseal with episodic airleak as mentioned. 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 All of the margins were negative and the lymph nodes are also negative. As such, the patient was given T1 cN0 M0 disease. On today's evaluation of 07/12/2023, the patient is postop day #7. The patient is post left upper lobe segmentectomy. 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 The patient continues to have airleak. The patient is on wate rseal. The follow-up chest x-ray from today shows a left apical pneumothorax and based on that, a computed tomography scan of the chest was done and the patient was found to have a left-sided pneumothorax in the order of 20%. There is some postop changes in the left hilum. Small amount of subcutaneous air was also seen. Despite her ongoing airleak, the patient is very much comfortable. She is currently on room air oxygen with a pulse ox of 97%. Her labs show a white cell count 7.2, hemoglobin 11.3 and a platelet count of 226. The electrolytes are normal with a BUN of 11 and a creatinine of 0.6. She is active. He is ambulating. No nausea or vomiting. No other respiratory difficulties. On today's evaluation of 07/13/2023, the patient's postop day #8. The patient had a follow-up chest x-ray this morning that showed a pneumothorax in the left apex. Chest tube is in a good location and the patient continues to have airleak. Output from the chest tube is minimal at this point in time. Despite this ongoing pneumothorax and air leak, the patient is feeling well. No specific complaints patient remains on room air oxygen. Cardiac rhythm is sinus. She is ambulating. She is afebrile. She is using the senna spirometer and she is falling approximately 750 on her I-S. She has an adequate cough. Output from the chest and his been in the order of 200 mL over the past 24 h ours. The white cell cause of 7.2 with a hemoglobin 11.3 and a platelet count of 226. BUN is 11 with a creatinine of 0.6 and sodium level is at 137. Objective - Vital Signs Vital signs: Vital Signs Temp 97.7 F 07/13/23 08:00 Pulse 87 07/13/23 08:00 Resp 18 07/13/23 08:00 BP 120/58 07/13/23 08:00 Pulse Ox 94 L 07/13/23 09:11 FiO2 Intake & Output 07/12/23 07/13/23 07/13/23 18:59 06:59 18:59 Intake Total 716 240 Output Total 90 120 Balance 626 -120 240 Intake: Oral 716 240 Output: Chest Tube Drainage 90 120 Chest Tube Left Anterior 90 120 Chest Other: Voiding Method Toilet # Voids 2 - Exam CONSTITUTIONAL: Appears comfortable, cooperative, no acute distress, the patient is currently on room air oxygen. RESPIRATORY: Lungs sounds diminished bilaterally. Respirations even, nonlabored. Currently on room air with oxygen saturation 96%. Able to achieve 750 mL on incentive spirometry. Strong cough. There is air leak noted and the chest tube and the patient has her chest tube to waterseal. There is ongoing air leak through the chest tube. CARDIOVASCULAR: S1, S2 present. Regular rate and rhythm, sinus rhythm on telemetry. Palpable peripheral pulses bilaterally. No edema present GASTROINTESTINAL: Abdomen soft, nontender, nondistended. Active bowel sounds present 4 quadrants. Tolerating diet GENITOURINARY: Continues to void INTEGUMENTARY: Skin is warm and dry NEUROLOGIC: Cranial nerves II through XII intact MUSKULOSKELETAL: Able to move all extremities, strength equal bilaterally, gait normal PSYCHIATRIC: Alert and oriented to person place and time, appropriate affect, intact judgment and insight INVASIVE LINES AND TUBES: Left pleural chest tube present to water seal - Labs CBC & Chem 7: 07/12/23 07:25 07/12/23 07:25 Labs: Abnormal Lab Results - Last 24 Hours (Table) 07/12/23 07/12/23 07/12/23 Range/Units 11:45 16:40 19:44 POC Glucose (mg/dL) 178 H 116 H 159 H (70-110) mg/dL 07/13/23 Range/Units 05:56 POC Glucose (mg/dL) 136 H (70-110) mg/dL Assessment and Plan Plan: Postop day # 7, status post robotically-assisted left upper lobe segmentectomy, and mediastinal lymph node dissection. The patient continues to have a left- sided chest tube in place. Chest tube is to waterseal and the patient continues to have intermittent air leak. 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 The patient has T1 cN0 M0 disease Left-sided pneumothorax in order of 20-25%, clinically asymptomatic, the pneumothorax is unchanged compared to yesterday and the patient continues to have air leak. Acute hypoxic respiratory failure secondary to above, improving, the patient is currently on room air oxygen 2.5 cm left upper lobe pulmonary nodule, with a negative PET CT fusion study, and biopsy, that was nondiagnostic. History of diabetes mellitus. History of hyperlipidemia. History of hypothyroidism. Plan: Keep the chest tube in place Keep the chest tube to waterseal Chest x-ray showed shows a pneumothorax and the findings are also confirmed by CAT scan of the chest Monitor the air leak Final diagnoses were discussed and the patient has a early stage non-small cell lung cancer Patient is currently on room and oxygen Encourage use of incentive spirometer Repeat chest x-ray in the morning Patient is ambulating We'll continue to follow
--- NOTE | 2023-07-13 16:05 | P.DS ---
Providers Date of admission: 07/05/23 09:38 Expected date of discharge: 07/13/23 Attending physician: Ney Bajwa MD Consults: 07/05/23 16:48 Consult Physician Routine Consulting Provider: Singh Spence Consult Reason/Comments: post segmentectomy Do you want consulting provider notified?: Yes Primary care physician: Favian Hernandez [facility] Course: FINAL DIAGNOSIS: Left upper lobe nodule, status post left robotic assisted thorascopic surgery with left upper lobe apico-posterior segementectomy using the [employer] FireFly Angiography System History of right breast cancer 15 years ago status post chemo and radiation Previous tobacco dependence COPD Type 2 diabetes Hyperlipidemia Hypothyroid Fatty liver with cirrhosis Persistent air leak PRINCIPAL PROCEDURE: 1. Bronchoscopy 2. Left robotic-assisted thoracoscopic surgery with left upper lobe apico- posterior segmentectomy using the [employer] firefly angiography system 3. Mediastinal lymph node dissection 4. Intercostal nerve block 2 levels HISTORY OF PRESENT ILLNESS: This is an 88-year-old female patient who follows with Dr. Favian Hernandez for her primary care and with Dr. alexus santo and for her pulmonary care. She was referred to Dr. Ney Bajwa for growing left upper lobe nodule. The patient has a remote history of nicotine dependence which he quit smoking in 1993. The patient has a history of a left upper lobe pulmonary nodule which was seen in 2017 that was small and not FDG avid on PET/CT. Subsequently, a repeat computed tomography scan of her chest was completed in February 2023 which demonstrated the left upper lobe nodule to have grown in size to 2.2 cm with a groundglass opacity and a stable 8 mm nodules superior segment groundglass appearance of the right lower lobe. For further evaluation the patient underwent a PET/CT which did not show any FDG activity in the lungs. Dr. Vargas performed a robotic-assisted ION biopsy of the left upper lobe which revealed focal chronic inflammation, nondiagnostic for malignancy. PFTs were performed which demonstrated an FEV1 of 67% of predicted value with a base volume of 1.59 L and a DLCO of 79% of predicted value. The patient and her, her and [address] Bajwa, treatment options were discussed including robot-assisted left upper lobe apico-posterior segmentectomy surgery. Risks and benefits of surgery were discussed with the patient and her family present and knowing and understanding the risks the patient wished to proceed with the surgical option. HOSPITAL COURSE: On 07/05/2023 the patient was admitted to the hospital, and after obtaining consent was taken to the preoperative area where she was prepared in the usual fashion and subsequently taken to the operating room where Dr. Bajwa performed a left robotic-assisted thoracoscopic surgery with left upper lobe apico-posterior segmentectomy using the [employer] firefly angiography system. Upon completion of the surgery the patient was extubated and taken to the recovery room for further monitoring. She was eventually admitted to the third floor cardiac stepdown unit for further recovery and hemodynamic monitoring. Unfortunately the patient continued to have a prolonged air leak from the chest tube and the chest tube was placed to a Pleur-evac dry seal unit which she will be discharged home with. Her oxygen was titrated down, she was tolerating an oral diet, her pain was well controlled and she was ready to be discharged home with the chest tube and dry seal Pleur-evac in place on pos toperative day #8 with home health care. She has received written and verbal instructions regarding her medications, activity restrictions, signs and symptoms requiring physician notification and her follow-up appointment. Plan - Discharge Summary Discharge Rx Participant: No New Discharge Prescriptions: New Pantoprazole [Protonix] 40 mg PO AC-BRKFST #14 tab Acetaminophen Tab [Tylenol] 650 mg PO Q4HR PRN tab PRN Reason: Mild To Moderate Pain (1 - 6) traMADol HCl [Ultram] 50 mg PO QID PRN #12 tab PRN Reason: Severe Pain (Scale 7 To 10) Ibuprofen [Motrin] 600 mg PO QID PRN tab PRN Reason: Pain Continue Clindamycin Topical Soln [Cleocin-T Topical Soln] 1 applic TOPICAL BID PRN PRN Reason: Skin Irritation Levothyroxine Sodium [Synthroid] 50 mcg PO DAILY metroNIDAZOLE 0.75% CREAM [Metrocream 0.75%] 1 applic TOPICAL BID PRN PRN Reason: Skin Irritation metFORMIN HCL ER [Glucophage XR] 1,000 mg PO DAILY Melatonin 5 mg PO HS PRN PRN Reason: Insomnia Magnesium Oxide [Mag-Ox] 400 mg PO HS Cholecalciferol [Vitamin D3 (25 Mcg = 1000 Iu)] 75 mcg PO DAILY Atorvastatin [Lipitor] 40 mg PO DAILY Biotin Gummy 1,000 mcg PO DAILY Vitamin B Complex/ Vitamin C 1 tab PO DAILY Desoden 1 applic TOPICAL DIRECTED Loperamide [Imodium] 2 mg PO DAILY PRN PRN Reason: Diarrhea Ontiveros Minoxidil 1 tab PO BID Discharge Medication List Clindamycin Topical Soln [Cleocin-T Topical Soln] 1 applic TOPICAL BID PRN 06/25/18 [History] Levothyroxine Sodium [Synthroid] 50 mcg PO DAILY 06/25/18 [History] metroNIDAZOLE 0.75% CREAM [Metrocream 0.75%] 1 applic TOPICAL BID PRN 02/27/22 [History] Loperamide [Imodium] 2 mg PO DAILY PRN 05/04/23 [History] Magnesium Oxide [Mag-Ox] 400 mg PO HS 05/04/23 [History] Melatonin 5 mg PO HS PRN 05/04/23 [History] metFORMIN HCL ER [Glucophage XR] 1,000 mg PO DAILY 05/04/23 [History] Atorvastatin [Lipitor] 40 mg PO DAILY 06/29/23 [History] Biotin Gummy 1,000 mcg PO DAILY 06/29/23 [History] Cholecalciferol [Vitamin D3 (25 Mcg = 1000 Iu)] 75 mcg PO DAILY 06/29/23 [History] Desoden 1 applic TOPICAL DIRECTED 06/29/23 [History] Ontiveros Minoxidil 1 tab PO BID 06/29/23 [History] Vitamin B Complex/ Vitamin C 1 tab PO DAILY 06/29/23 [History] Acetaminophen Tab [Tylenol] 650 mg PO Q4HR PRN tab 07/13/23 [Rx] Ibuprofen [Motrin] 600 mg PO QID PRN tab 07/13/23 [Rx] Pantoprazole [Protonix] 40 mg PO AC-BRKFST #14 tab 07/13/23 [Rx] traMADol HCl [Ultram] 50 mg PO QID PRN #12 tab 07/13/23 [Rx] Follow up Appointment(s)/Referral(s): [facility], [NON-STAFF] - 1 Week Favian Hernandez MD [Primary Care Provider] - As Needed Ney Bajwa MD [STAFF PHYSICIAN] - 07/17/23 3:00 pm () Bladimir Vargas MD [STAFF PHYSICIAN] - 07/23/23 9:45 am Ambulatory/Diagnostic Orders: XR chest 2V [RAD.AMB] Time Frame: 07/17/23, Facility: [facility], Location: [facility] Activity/Diet/Wound Care/Special Instructions: DISCHARGE INSTRUCTIONS: 1. No driving for 2 weeks, or until physician gives their ok. 2. No lifting, pushing, or pulling more than 10 pounds for 2 weeks. The physician will advise of any restriction changes. 3. Continue pain control per as needed orders. May alternate acetaminophen (Tylenol) and ibuprofen (Motrin/Advil) for pain. 4. Continue with incentive spirometry and splinting until otherwise directed by the physician. 5. Leave chest tube connected to dry seal Pleur-evac. Instructed patient how to drain the Pleur-evac if needed. Follow-up with Dr. Bajwa on 07/17/2023 at 3 PM, please obtain x-ray prior to follow-up visit.. 6. Routine incision care. No powders, lotions, ointments on incisions. 7. Please call surgeon/DIRECTOR OF CARDIOLOGY for temp greater than 101 F or purulent drainage from incisions. 8. Smoking cessation counseling and program information provided. Quitting smoking is the most important step you can take to improve your health. For additional information and assistance to quit smoking, please call the [place] tobacco quit line (7-012-SFCL-NOW/ ) or online: https://www.[email or web address].gov/[email or web address]-ku-hnqohap/[email or web address]/tobacco/how-to-qu it-tobacco Discharge Disposition: HOME WITH HOME HEALTH SERVICES
--- NOTE | 2023-07-16 16:12 | CDI ---
Documentation Clarification Form Date: 07/16/2023 04:00:02 PM From: Leslie Reynoso Phone: Admit Date: 07/05/2023 09:38:00 AM Patient Name: Alaina Barrera Visit Number: [id number] Discharge Date: 07/13/2023 04:38:00 PM ATTENTION: The Clinical Documentation Specialists (CDI) and [facility] Coding Staff appreciate your assistance in clarifying documentation. Please respond to the clarification below the line at the bottom and electronically sign. The CDI & [facility] Coding staff will review the response and follow-up if needed. Please note: Queries are made part of the Legal Health Record. If you have any questions, please contact the author of this message via ITS. Dr. Bladimir Vargas Your patient has diagnostic/radiology results: elevated glucose readings. Please clarify if there is an additional diagnosis and/or clinical significance related to this result. History/Risk Factors: 82yo F, DRE cancer, HX Rt breast Cx postchemoandradiation, previous smoker, COPD, DMII, HLD, hypothyroid, fatty liverwithcirrhosis, persistentair leak Clinical indicators: 07/06 153-186 07/07 127-178 07/08 132-185 07/09 128-188 Treatment: insulin 07/09 Metformin HCL ER [Glucophage XR] 1,000 mg PO DAILY Is there an additional diagnosis and/or clinical significance related to the above diagnostic/radiology result? [ ] Type 2 diabetes mellitus with hyperglycemia [ x ] Result is not clinically significant (no additional diagnosis) [ ] Other, please specify [ ] Unable to determine (Template Last Reviewed: November 2020) MTDD
== END 2023-07-13 16:38 | disposition home health service (06) | DRG 163 ==
LOC: 2ORMAIN 09:38 → 3SCARD 15:53
PROVIDERS: ADMIT Thoracic Surgery (Cardiothoracic Vascular Surgery); ATTEND Thoracic Surgery (Cardiothoracic Vascular Surgery)
PROC: 07T74ZZ Resection of Thorax Lymphatic, Percutaneous Endoscopic Approach (ICD-10-PCS; 2023-07-05)
PROC: 3E0T3BZ Introduction of Anesthetic Agent into Peripheral Nerves and Plexi, Percutaneous Approach (ICD-10-PCS; 2023-07-05)
PROC: 8E0W4CZ Robotic Assisted Procedure of Trunk Region, Percutaneous Endoscopic Approach (ICD-10-PCS; 2023-07-05)
PROC: 0BBG4ZZ Excision of Left Upper Lung Lobe, Percutaneous Endoscopic Approach (ICD-10-PCS; principal; 2023-07-05 11:30)
DX: C34.12 Malignant neoplasm of upper lobe, left bronchus or lung (principal); J96.01 Acute respiratory failure with hypoxia; J93.82 Other air leak; J44.9 Chronic obstructive pulmonary disease, unspecified; K76.0 Fatty (change of) liver, not elsewhere classified; K74.69 Other cirrhosis of liver; E11.39 Type 2 diabetes mellitus with other diabetic ophthalmic complication; E03.9 Hypothyroidism, unspecified; E78.5 Hyperlipidemia, unspecified; K21.9 Gastro-esophageal reflux disease without esophagitis; H42 Glaucoma in diseases classified elsewhere; Z85.3 Personal history of malignant neoplasm of breast; Z87.19 Personal history of other diseases of the digestive system; Z79.899 Other long term (current) drug therapy; Z79.890 Hormone replacement therapy; Z79.84 Long term (current) use of oral hypoglycemic drugs; Z88.5 Allergy status to narcotic agent; Z91.048 Other nonmedicinal substance allergy status; Z91.012 Allergy to eggs; Z92.3 Personal history of irradiation; Z92.21 Personal history of antineoplastic chemotherapy; Z87.891 Personal history of nicotine dependence; Z80.0 Family history of malignant neoplasm of digestive organs
CPT/HCPCS: 64999; 71045; 71046; 71250; 80048; 85025; 85027; 86850; 86900; 86901; 86920; 88305; 88309; 88331; 88341; 88342; 94640; 94760

== ENCOUNTER → 2023-07-17 | Outpatient (CLI) | payer MEDICARE ==
--- NOTE | 2023-07-17 14:56 | XR ---
EXAMINATION TYPE: XR chest 2V DATE OF EXAM: 07/17/2023 COMPARISON: 07/13/2023 TECHNIQUE: PA and lateral views submitted. HISTORY: Postop FINDINGS: There is a small air-fluid level in the left lung apex measuring 2.7 cm in craniocaudal dimension. Ch est tubes in position. Right lung is clear. Underlying COPD. Hypertrophic degenerative changes in the spine. Atherosclerotic change aorta. Diffuse osteopenia throughout the shoulders. Trace amount subcu taneous emphysema. IMPRESSION: 1. Small left apical air-fluid level likely representing a small loculated hydropneumothorax. Chest t ube in position.
== END | disposition home or self-care (01) ==
LOC: RADXRMAIN 14:28
PROVIDERS: ATTEND Thoracic Surgery (Cardiothoracic Vascular Surgery)
DX: Z48.813 Encounter for surgical aftercare following surgery on the respiratory system (principal)
CPT/HCPCS: 71046

== ENCOUNTER → 2023-08-01 | Outpatient (CLI) | payer MEDICARE ==
--- NOTE | 2023-08-01 13:04 | CT ---
EXAMINATION TYPE: CT chest wo con DATE OF EXAM: 08/01/2023 COMPARISON: 07/12/2023 HISTORY: sob, pleural effusion. hx of recent lung sx for ca CT DLP: 319.[address] of the chest was performed with lung and mediastinal window settings submitted. The la ck of contrast limits evaluation of the vascular, mediastinal and parenchymal structures including th e upper abdomen. LUNGS: Previously noted left-sided pneumothorax is much smaller in size with small residual noted wit hin the left lung apex estimated at 10%. There is hydropneumothorax component seen within the left ap ical region measuring 1.6 cm in AP dimension by 7.3 cm in transverse dimension. There is also a small left-sided basilar pleural effusion measuring 1.8 cm AP dimension. No evidence for pulmonary infiltr ate or distinct mass. Postoperative changes left suprahilar region. MEDIASTINUM/LIZETH: Thoracic aorta is of normal caliber with limited evaluation given lack of contrast . The heart is not enlarged. No evidence for mediastinal mass. No lymph nodes greater than 1cm. UPPER ABDOMEN: No significant abnormality is seen. OTHER: No significant other abnormality. IMPRESSION: 1. Left-sided pneumothorax is significantly smaller in size and is estimated at 10% currently. There is hydropneumothorax component seen. Small left basilar pleural effusion has increased in size since prior study however is still considered small.
== END | disposition home or self-care (01) ==
LOC: RADCTMAIN 12:21
PROVIDERS: ATTEND Family Medicine
DX: J90 Pleural effusion, not elsewhere classified (principal); J94.8 Other specified pleural conditions
CPT/HCPCS: 71250

== ENCOUNTER → 2023-08-23 | Outpatient (CLI) | payer MEDICARE ==
[2023-08-23 13:04] LABS: ALT 25 U/L (4-34); AST 34 U/L (14-36); African American GFR (CKD) >90 (>60 ml/min/1.73 sqM); Albumin 4.4 g/dL (3.5-5.0); Albumin/Globulin Ratio 1.1; Alkaline Phosphatase 60 U/L (38-126); Anion Gap 9 mmol/L; Blood Urea Nitrogen 16 mg/dL (7-17); Calcium 10.6 mg/dL (8.4-10.2); Carbon Dioxide 28 mmol/L (22-30); Chloride 104 mmol/L (98-107); Creatine Kinase 61 U/L (30-135); Globulin 3.9 g/dL; Glucose 138 mg/dL (74-99); Non-African American GFR(CKD) 85 (>60 ml/min/1.73 sqM); Potassium 4.7 mmol/L (3.5-5.1); Sodium 141 mmol/L (137-145); Total Bilirubin 0.8 mg/dL (0.2-1.3); Total Protein 8.3 g/dL (6.3-8.2)
[2023-08-23 13:14] LABS: NT-Pro-B-Type Natriuretic Pept 219 pg/mL
[2023-08-23 13:21] LABS: T4, Free (Free Thyroxine) 1.09 ng/dL (0.78-2.19)
[2023-08-23 16:37] LABS: Basophils # (A) 0.04 X 10*3/uL (0.00-0.10); Basophils % (A) 0.7 %; Eosinophils # (A) 0.11 X 10*3/uL (0.04-0.35); Eosinophils % (A) 1.8 %; HCT 39.2 % (37.2-46.3); HGB 12.7 g/dL (12.0-15.0); Lymphocytes # (A) 1.97 X 10*3/uL (0.90-5.00); Lymphocytes % (A) 32.4 %; MCH 30.9 pg (27.0-32.0); MCHC 32.4 g/dL (32.0-37.0); MCV 95.4 FL (80.0-97.0); Mean Platelet Volume 10.6 FL (9.5-12.2); Monocytes # (A) 0.48 X 10*3/uL (0.20-1.00); Monocytes % (A) 7.9 %; NRBC Per 100 WBC 0 X 10*3/uL (0.00-0.01); Neutrophils # (A) 3.47 X 10*3/uL (1.80-7.70); Platelet Count 256 X 10*3/uL (140-440); RBC 4.11 X 10*6/uL (4.10-5.20); RDW 12.8 % (11.5-14.5); WBC 6.08 X 10*3/uL (4.50-10.00)
[2023-08-23 21:07] LABS: Chol/HDL Ratio 3.65 Ratio; LDL Cholesterol,Calculated 91.2 mg/dL (0.0-131.0)
== END | disposition home or self-care (01) ==
LOC: LABWHC1 11:17
PROVIDERS: ATTEND Internal Medicine Endocrinology, Diabetes & Metabolism
DX: E11.65 Type 2 diabetes mellitus with hyperglycemia (principal); E78.5 Hyperlipidemia, unspecified; E03.9 Hypothyroidism, unspecified; J90 Pleural effusion, not elsewhere classified
CPT/HCPCS: 36415; 80053; 80061; 82043; 82550; 82570; 83036; 83880; 84439; 84443; 85025

== ENCOUNTER → 2023-10-02 | Outpatient (CLI) | payer MEDICARE ==
--- NOTE | 2023-10-03 08:35 | MM ---
Reason for Exam: Screening (asymptomatic). Last mammogram was performed 1 year(s) and 1 month(s) ago. Patient History: Menarche at age 10. First Full-Term at age 21. Left ovary removed at age 52. Right ovary removed at age 52. Hysterectomy at age 52. Postmenopausal. Breast cancer, right, age 68. Previous chest radiation therapy at age 68. Previous chemotherapy at age 68. Patient used Tamoxifen for 5 years. 2006, Lumpectomy on the Right side. Radiation Therapy, right. Prior Study Comparison: 06/01/2020 Bilateral Screening Mammogram, [facility]. 07/26/2021 Bilateral Screening Mammogram, [facility]. 08/08/2022 Bilateral MG 3D screening mammo w/cad, [facility]. Tissue Density: There are scattered fibroglandular densities. Findings: Analyzed By CAD. There is no suspicious group of microcalcifications or new suspicious mass. Overall Assessment: Negative, BI-RAD 1 Management: Screening Mammogram of both breasts in [address] [facility] will attempt to contact patient to return for supplemental views and ultrasound if indicated. Patient should continue monthly self-breast exams. A clinical breast exam by your physician is recommended on an annual basis. This exam should not preclude additional follow-up of suspicious palpable abnormalities. Note on Corazon scores and lifetime risk: 1. A Corazon score greater than 3% is considered moderate risk. If this is the case, consider specialist referral to assess eligibility for a risk reducing agent. 2. If overall lifetime risk for the development of breast cancer is 20% or higher, the patient may qualify for future screening with alternating mammogram and breast MRI. Electronically signed and approved by: Singh Busby DO
== END | disposition home or self-care (01) ==
LOC: RADMAMWWP 12:55
PROVIDERS: ATTEND Family Medicine
DX: Z12.31 Encounter for screening mammogram for malignant neoplasm of breast (principal); Z85.3 Personal history of malignant neoplasm of breast; Z78.0 Asymptomatic menopausal state
CPT/HCPCS: 77063; 77067

== ENCOUNTER → 2024-01-16 | Outpatient (CLI) | payer MEDICARE ==
[2024-01-16 10:08] LABS: African American GFR (CKD) >90 (>60 ml/min/1.73 sqM); Blood Urea Nitrogen 18 mg/dL (7-17); Non-African American GFR(CKD) 83 (>60 ml/min/1.73 sqM)
--- NOTE | 2024-01-16 10:41 | CT ---
EXAMINATION TYPE: CT chest w con DATE OF EXAM: 01/16/2024 COMPARISON: 08/01/2023 HISTORY: LUNG CA CT DLP: 379.1 mGycm, Automated exposure control for dose reduction was used. CONTRAST: Performed injected with 100 mL of Isovue 300. TECHNIQUE: Axial images were obtained at 5 mm thick sections. Reconstructed images are reviewed on [employer] computer in the coronal plane. FINDINGS: Portion of the thyroid visualized is normal. There is small groundglass opacity posterior right apex. Series 4 image 24. This was present previous ly and appears similar. Tiny area of pneumonitis is within the anterior right upper lung, series 4 im age 27. This may be new. There is some scarring in the periaortic region from prior surgery. No pneumothorax on the current ex amination. No enlarged mediastinal or hilar adenopathy is evident. The ascending aorta diameter at the level o f the main pulmonary artery is 3.2 cm. The main pulmonary artery diameter at the bifurcation is 2.[address] sections are obtained through the upper abdomen. Abdomen is essentially unremarkable. IMPRESSION: 1. Stable appearing area of pneumonitis right lung. 2. New small area of anterior pneumonitis. Early metastasis is not excluded 3. Stable postsurgical changes left upper lung field.
== END | disposition home or self-care (01) ==
LOC: RADCTMAIN 09:25
PROVIDERS: ATTEND Internal Medicine Critical Care Medicine
DX: C34.90 Malignant neoplasm of unspecified part of unspecified bronchus or lung (principal); J98.4 Other disorders of lung
CPT/HCPCS: 82565; 84520; 71260; 36415; Q9967

== ENCOUNTER → 2024-08-19 | Outpatient (CLI) | payer MEDICARE ==
[2024-08-19 11:55] LABS: African American GFR (CKD) >90 (>60 ml/min/1.73 sqM); Blood Urea Nitrogen 13 mg/dL (7-17); Non-African American GFR(CKD) 88 (>60 ml/min/1.73 sqM)
--- NOTE | 2024-08-19 12:44 | CT ---
EXAMINATION TYPE: CT chest w con CT DLP: 321.9 mGycm, Automated exposure control for dose reduction was used. DATE OF EXAM: 08/19/2024 12:27 PM COMPARISON: CT chest 01/16/2024, 08/01/2023, 07/12/2023, 05/10/2023 CLINICAL INDICATION:Female, 84 years old with history of C34.90 LUNG CANCER; [facility], LUNG CA TECHNIQUE: Multiple axial images were obtained through the chest following the administration of 100 cc of Isovue 300. . Coronal and sagittal reformats reviewed. FINDINGS: LUNGS/ PLEURA: No pleural effusion or pneumothorax. Similar postsurgical changes within the left upp er lung with some residual volume loss and scarring along the perihilar region. No significant change in patchy opacity within the superior segment of the right lower lobe (series 4, image 25). Addition al stable focal reticular groundglass opacity within the anterior right upper lobe (series 4, image 2 5). No new or enlarging pulmonary nodules. AIRWAY: Patent and unremarkable.. HEART: The heart is mildly increased in size..No pericardial effusion. MEDIASTINUM: No evidence of adenopathy. VASCULATURE: No aortic aneurysm. Atherosclerotic calcification of the aorta and its branches. Bovine aortic arch configuration. MUSCULOSKELETAL: No acute osseous abnormalities. No aggressive osseous lesion. Multilevel degenerativ e disc disease. SOFT TISSUES/LYMPH NODES: Unremarkable. LOWER NECK: No significant findings. UPPER ABDOMEN: Redemonstration of dilated common bile duct measuring up to 1.9 cm. Likely related to prior cholecystectomy. IMPRESSION: 1. Stable postsurgical changes to the left upper lung. 2. Stable-appearing focal regions of reticular patchy groundglass opacities within the superior segm ent of the right lower lobe and anterior right upper lobe. No new or enlarging pulmonary nodules. May represent pneumonitis with early metastasis not excluded. Attention on follow-up exam. [facility], , 08/19/2024 12:41 PM
== END | disposition home or self-care (01) ==
LOC: RADCTMAIN 11:14
PROVIDERS: ATTEND Internal Medicine Critical Care Medicine
DX: C34.90 Malignant neoplasm of unspecified part of unspecified bronchus or lung (principal); K83.8 Other specified diseases of biliary tract; I70.0 Atherosclerosis of aorta
CPT/HCPCS: 82565; 84520; 71260; 36415; Q9967

== ENCOUNTER → 2024-10-21 | Outpatient (CLI) | payer MEDICARE ==
--- NOTE | 2024-10-21 13:54 | MM ---
Reason for Exam: Screening (asymptomatic). Last mammogram was performed 1 year(s) and 1 month(s) ago. Patient History: Menarche at age 10. First Full-Term at age 21. Left ovary removed at age 52. Right ovary removed at age 52. Hysterectomy at age 52. Postmenopausal. Breast cancer, right, age 68. Previous chest radiation therapy at age 68. Previous chemotherapy at age 68. Patient used Tamoxifen for 5 years. 2006, Lumpectomy on the Right side. Radiation Therapy, right. Prior Study Comparison: 07/26/2021 Bilateral Screening Mammogram, [facility]. 08/08/2022 Bilateral MG 3D screening mammo w/cad, [facility]. 10/02/2023 Bilateral MG 3D screening mammo w/cad, [facility]. Tissue Density: The breasts are heterogeneously dense, which may obscure small masses. Findings: Analyzed By CAD. There are benign-appearing rounded and linear calcifications bilaterally redemonstrated. Stable posttreatment changes medial inferior aspect right breast. There is no suspicious new group of microcalcifications or new suspicious mass in either breast. Overall Assessment: Benign, BI-RAD 2 Management: Screening Mammogram of both breasts in 1 year. . Patient should continue monthly self-breast exams. A clinical breast exam by your physician is recommended on an annual basis. This exam should not preclude additional follow-up of suspicious palpable abnormalities. Note on Corazon scores and lifetime risk: 1. A Corazon score greater than 3% is considered moderate risk. If this is the case, consider specialist referral to assess eligibility for a risk reducing agent. 2. If overall lifetime risk for the development of breast cancer is 20% or higher, the patient may qualify for future screening with alternating mammogram and breast MRI. [facility], , 10/21/2024 1:51 PM. Electronically signed and approved by: Diaz Gann M.D.
== END | disposition home or self-care (01) ==
LOC: RADMAMWWP 13:31
PROVIDERS: ATTEND Family Medicine
DX: Z12.31 Encounter for screening mammogram for malignant neoplasm of breast (principal); Z90.722 Acquired absence of ovaries, bilateral; Z78.0 Asymptomatic menopausal state; R92.333 Mammographic heterogeneous density, bilateral breasts
CPT/HCPCS: 77063; 77067

== ENCOUNTER → 2025-02-04 | Outpatient (CLI) | payer MEDICARE ==
[2025-02-04 12:14] LABS: African American GFR (CKD) >90 (>60 ml/min/1.73 sqM); Blood Urea Nitrogen 18 mg/dL (7-17); Non-African American GFR(CKD) 85 (>60 ml/min/1.73 sqM)
--- NOTE | 2025-02-04 14:40 | CT ---
EXAMINATION TYPE: CT chest w con DATE OF EXAM: 02/04/2025 12:52 PM COMPARISON: 08/19/2024 CLINICAL INDICATION: Female, 84 years old with history of C34.90 MALIGNANT NEOPLASM OF UNSP PART OF U NSP BRO; [facility], f/u breast and lung ca TECHNIQUE: CT of the chest after IV contrast administration. Coronal and sagittal reconstructions per formed. Contrast used:100 mL of Isovue [address] DLP: 351.1 mGycm, Automated exposure control for dose reduction was used. FINDINGS: Heart is normal size with trace anterior basilar pericardial fluid. Dense mitral annular calcificatio ns. Three-vessel coronary artery calcifications. Aorta normal caliber with bovine configuration to the aortic arch. No thoracic lymphadenopathy by CT size criteria. Redemonstrated postsurgical change of partial left upper lobectomy with some chronic volume loss and consolidation medial aspect of the left upper lung extending up to the anterior apex. There are approximately 3 small patches of groundglass, 6 mm at the apex, 6 mm anterior right midlung , and 1.3 cm posterior right mid lung which are all unchanged. However, new 5 mm pulmonary nodule right lower lobe, axial image 30 is not noted. Background mild emphysema and some minimal scattered chronic interstitial fibrosis. No consolidation or pleural effusion. Small bilateral renal cortical cysts. Redemonstrated prominently dilated bile duct up to 1.6 cm, possible choledochocyst. No intrahepatic b iliary ductal dilatation seen. Gallbladder surgically absent. Bones: DISH throughout the thoracic spine. Some degenerative change of the bilateral sternoclavicular joints. IMPRESSION: 1. Stable postsurgical and posttreatment change along the medial left upper lobe. 2. Approximately 3 groundglass foci on the right measuring up to 1.3 cm remain unchanged. However, th ere is a new 5 mm right lower lobe pulmonary nodule. The nodule is nonspecific. Early metastatic dise ase not excluded at this time. Close surveillance follow-up CT recommended to exclude progression. 3. Background COPD with mild emphysema. 4. Extensive DISH throughout the thoracic spine. [facility], Workstation: [id number], 02/04/2025 2:38 PM
== END | disposition home or self-care (01) ==
LOC: RADCTMAIN 11:17
PROVIDERS: ATTEND Internal Medicine Critical Care Medicine
DX: C34.90 Malignant neoplasm of unspecified part of unspecified bronchus or lung (principal); J44.9 Chronic obstructive pulmonary disease, unspecified; J43.9 Emphysema, unspecified; R91.1 Solitary pulmonary nodule; M51.34 Other intervertebral disc degeneration, thoracic region
CPT/HCPCS: 82565; 84520; 71260; 36415; Q9967